=== PATIENT | male | born 1950 | race Caucasian/White ===

== ENCOUNTER → 2018-12-17 14:29 | Outpatient (CLI) | payer OTHER, SELFPAY ==
--- NOTE | 2018-12-17 | DI.RAD.S_ITS ---
PROCEDURE: XR CHEST 2V INDICATIONS: COUGH TECHNIQUE: 2 views of the chest were acquired. COMPARISON: [facility], , CHEST 2 VIEW, 12/26/2017, 15:50. FINDINGS: Surgical changes and devices: None. Lungs and pleura: Low lung volumes with scattered subsegmental atelectasis/scarring. . No pleural effusions or pneumothorax. Mediastinum: Mediastinal contours are normal. Heart size is normal. Bones and chest wall: No suspicious bony abnormalities. Soft tissues appear unremarkable. IMPRESSION: No acute disease. Scattered scarring/atelectasis. Dictated by: Wellington Caro M.D. on 12/17/2018 at 15:22 Approved by: Wellington Caro M.D. on 12/17/2018 at 15:35
== END ==
PROVIDERS: PCP Family Medicine; Visit Provider Family Medicine
DX: R05 Cough (principal); R07.9 Chest pain, unspecified; I10 Essential (primary) hypertension
CPT/HCPCS: 71046

== ENCOUNTER → 2019-09-16 07:41 | Outpatient (CLI) | payer OTHER, SELFPAY ==
--- NOTE | 2019-09-16 | DI.RAD.S_ITS ---
PROCEDURE: XR SINUS MIN 3V INDICATIONS: SINUSITIS TECHNIQUE: 3 views of the sinuses were acquired. COMPARISON: None. FINDINGS: Sinuses: The visualized sinuses demonstrate no air-fluid levels but images do document asymmetric left-sided maxillary sinus mucosal thickening. The visualized mastoids also appear clear. Bones: No suspicious bony lesions. Nasal septum is midline. IMPRESSION: Left maxillary sinusitis, without air-fluid level. Concentric mural thickening of the mucosa is associated. Dictated by: Josh Boyle M.D. on 09/16/2019 at 9:15 Approved by: Josh Boyle M.D. on 09/16/2019 at 9:16
== END ==
PROVIDERS: PCP Family Medicine; Visit Provider Family Medicine
DX: J01.80 Other acute sinusitis (principal); J32.0 Chronic maxillary sinusitis
CPT/HCPCS: 70220

== ENCOUNTER → 2022-10-10 09:28 | Outpatient (CLI) | payer OTHER, SELFPAY ==
[2022-10-10 10:08] LABS: Add Manual Diff / Slide Review NO; Basophils Absolute Auto 0 /uL (0-100); Basophils Percent Auto 0.2 % (0-2); Eosinophils Absolute Auto 100 /uL (0-450); Eosinophils Percent Auto 1.2 % (2-4); Hematocrit 42.7 % (41-53); Hemoglobin 13.7 g/dL (13.5-17.5); Lymphocytes Absolute Auto 600 /uL (1100-4500); Lymphocytes Percent Auto 8.7 % (25-40); Mean Corpuscular HGB Conc 32.1 % (30-36); Mean Corpuscular Hemoglobin 27.4 PG (26-34); Mean Corpuscular Volume 85.2 fL (80-100); Monocytes Absolute Auto 600 /uL (0-900); Neutrophils Absolute Auto 5300 /uL (1500-7000); Neutrophils Percent Auto 80.9 % (50-75); Platelet Count 243 X10^3/uL (150-400); Red Blood Cell Count 5.01 X10^6/uL (4.5-5.9); Red Cell Distribution Width 15.8 % (11.6-14.8); White Blood Cell Count 6.6 X10^3/uL (4.5-11.0)
[2022-10-10 10:18] LABS: Hemoglobin A1C% w Est Avg Glu 7.9 % (4.0-6.0)
[2022-10-10 10:25] LABS: Alanine Aminotransferase 26 IU/L (<50); Albumin 3.9 g/dL (3.5-5.0); Albumin Globulin Ratio 1.1 (1.0-2.8); Alkaline Phosphatase 90 U/L (38-126); Aspartate Aminotransferase 30 IU/L (17-59); Bilirubin Total 1.4 mg/dL (0.2-1.3); Blood Urea Nitrogen 24 mg/dL (9-20); Calcium 8.9 mg/dL (8.4-10.2); Carbon Dioxide 27 mmol/L (22-32); Chloride 95 mmol/L (98-107); Cholesterol 98 mg/dL (140-199); Estimated Glomerular Filt Rate > 60 mL/min (>60); Globulin 3.5 g/dL (1.7-4.1); Glucose 131 mg/dL (80-110); HDL Cholesterol 25 mg/dL (40-60); HEMOLYSIS < 15 (0-50); LDL Cholesterol Calculated 41 mg/dL (<100); Potassium 4.3 mmol/L (3.4-5.1); Sodium 134 mmol/L (137-145); Total Protein 7.4 g/dL (6.3-8.2); Triglycerides 160 mg/dL (35-150)
[2022-10-10 10:39] LABS: Vitamin D 25 Hydroxy (D3) 65.6 ng/mL (30.0-100.0)
[2022-10-10 11:34] LABS: Folate 13.8 ng/mL (2.76-20.0); Vitamin B12 359 pg/mL (239-931)
== END ==
PROVIDERS: PCP Family Medicine; Referring Provider Family Medicine; Visit Provider Family Medicine
DX: I10 Essential (primary) hypertension (principal); E11.9 Type 2 diabetes mellitus without complications; E55.9 Vitamin D deficiency, unspecified; E66.01 Morbid (severe) obesity due to excess calories; G94 Other disorders of brain in diseases classified elsewhere; M12.89 Other specific arthropathies, not elsewhere classified, multiple sites; R42 Dizziness and giddiness
CPT/HCPCS: 36415; 80053; 80061; 82306; 82607; 82746; 83036; 85025

== ENCOUNTER 2023-12-15 16:22 | Inpatient (IN) | payer MEDICARE, OTHER, SELFPAY ==
[2023-12-15] VITALS (15 sets, daily range): BP systolic 128–163; BP diastolic 55–69; PULSE 69–81; RESP 18–28; TEMP 36.1; O2SAT 87–95; BMI 41.0
--- NOTE | 2023-12-15 16:47 | DI.RAD.S_ITS ---
PROCEDURE: XR CHEST 1V INDICATIONS: Shortness of breath TECHNIQUE: One view of the chest was acquired. COMPARISON: [facility], MALIKA, XR CHEST 2V, 12/17/2018, 14:30. [facility], MALIKA, CHEST 2 VIEW, 12/26/2017, 15:50. FINDINGS: Surgical changes and devices: None. Lungs and pleura: Increased pulmonary markings and peribronchial cuffing. Small left pleural effusion. Mediastinum: Mediastinal contours appear normal. Heart size is enlarged. Bones and chest wall: No suspicious bony lesions. Overlying soft tissues appear unremarkable. IMPRESSION: Moderate pulmonary edema with small left pleural effusion. Dictated by: Delvis Martins M.D. on 12/15/2023 at 18:00 Approved by: Delvis Martins M.D. on 12/15/2023 at 18:00
--- NOTE | 2023-12-15 16:58 | ED.SOB ---
HPI - SOB/Dyspnea General Chief Complaint: Shortness of Breath/Dyspnea Stated Complaint: states can't breathe Time Seen by Provider: 12/15/23 16:49 Source: patient and family Mode of arrival: Ambulatory Limitations: no limitations History of Present Illness HPI Narrative: Patient is a 73-year-old male history of congestive heart failure, diabetes chronic respiratory failure on 4 L, presenting today with increasing shortness of breath. Due to his chronic respiratory failure he has a pulse oximetry monitors his oxygen closely. He reports over the last 6-7 days he has had increasing shortness of breath with exertion. His oxygen level has gone up to 6-7 L. He has not noted any significant weight gain. He has no chest pain fever chills or cough. But he reports his O2 went down to 65% while at home nursing report in the ED states his O2 on 4 L went into the 80s. He is currently requiring 6-7 L nasal cannula Related Data Allergies Allergy/AdvReac Type Severity Reaction Status Date / Time No Known Drug Allergies Allergy Verified 12/15/23 17:34 Exam Initial Vital Signs Initial Vital Signs: Vital Signs Respiratory Rate 28 H 12/15/23 16:29 Pulse Oximetry 90 L 12/15/23 16:29 Oxygen Delivery Method Nasal Cannula 12/15/23 16:29 Oxygen Flow Rate 4 12/15/23 16:29 GENERAL: Alert pleasant 73-year-old male appears uncomfortable HEENT: Head atraumatic,EOMI, pupils reactive, face symmetric, [moist] mucous membranes CARDIOVASCULAR: Regular rate and rhythm without murmurs, rubs or gallops. RESPIRATORY: Breath sounds equal bilaterally, no wheezes rales or rhonchi. ABDOMEN: Soft, nontender. Normoactive bowel sounds all 4 quadrants. No guarding or rebound. EXTREMITIES: Normal range of motion, no clubbing or edema. Neurovascularly intact NEUROLOGICAL: Alert and oriented x4.Normal gait and speech. Cranial nerves II through XII grossly intact. SKIN: Warm, dry, no laceration, no petechiae, no rashes or lesions. Course Orders Ordered: ED Orders 12/15/23 16:47 XR chest 1V Stat Measure peak expiratory flow ONCE RT Consult Eval and Treat NOW 12/15/23 16:50 EKG-12 Lead Stat 12/15/23 16:55 Complete Blood Count AUTO DIFF Stat Comprehensive Metabolic Panel Stat Lactate (Lactic Acid) Stat NT-proBNP (BNP-Adult 18+) Stat Prothrombin Time INR Stat Troponin I Stat 12/15/23 17:41 CT angio chest PE protocol Stat Discontinued Medications Furosemide (Furosemide 40 Mg/4 Ml Vial) 40 mg IV NOW ONE Stop: 12/15/23 17:00 Last Admin: 12/15/23 17:12 Dose: 40 mg Documented By: CHRIS Vital Signs Vital signs: Vital Signs - 8 hr 12/15/23 16:29 12/15/23 16:37 12/15/23 16:43 Pulse Rate 75 Respiratory Rate 28 H Blood Pressure 143/66 H Pulse Oximetry 90 L 87 L Oxygen Delivery Method Nasal Cannula Oxygen Flow Rate 4 12/15/23 16:43 12/15/23 17:00 12/15/23 17:00 Pulse Rate 74 72 Respiratory Rate 22 Blood Pressure 146/66 H Pulse Oximetry 94 95 Oxygen Delivery Method Nasal Cannula Oxygen Flow Rate 6 12/15/23 17:30 12/15/23 17:30 12/15/23 18:00 Pulse Rate 72 73 Respiratory Rate 24 28 H Blood Pressure 138/63 Pulse Oximetry 94 89 L Oxygen Delivery Method Oxygen Flow Rate 12/15/23 18:01 12/15/23 18:01 12/15/23 18:30 Pulse Rate 74 69 Respiratory Rate 21 22 Blood Pressure 163/69 H Pulse Oximetry 90 L 92 Oxygen Delivery Method Oxygen Flow Rate 12/15/23 18:31 12/15/23 18:31 Pulse Rate 71 Respiratory Rate 18 Blood Pressure 144/65 H Pulse Oximetry 91 Oxygen Delivery Method Nasal Cannula Oxygen Flow Rate 6 MDM - SOB/Dyspnea Lab Data 12/15/23 16:55 12/15/23 16:55 Labs: Lab Results 12/15/23 Range/Units 16:55 WBC 12.4 H (4.5-11.0) X10^3/uL RBC 4.61 (4.5-5.9) X10^6/uL Hgb 12.9 L (13.5-17.5) g/dL Hct 40.3 L (41-53) % MCV 87.4 (80-100) fL MCH 27.9 (26-34) PG MCHC 32.0 (30-36) % RDW 16.4 H (11.6-14.8) % Plt Count 316 (150-400) X10^3/uL Neut % (Auto) 87.0 H (50-75) % Lymph % (Auto) 5.9 L (25-40) % [place] % (Auto) 6.0 (3-14) % Eos % (Auto) 0.7 L (2-4) % Baso % (Auto) 0.4 (0-2) % Neut # (Auto) 67075 H (9363-3952) /uL Lymph # (Auto) 700 L (2390-7390) /uL [place] # (Auto) 700 (0-900) /uL Eos # (Auto) 100 (0-450) /uL Baso # (Auto) 100 (0-100) /uL PT 14.1 H (9.4-12.5) SECONDS INR 1.2 (0.9-1.3) Sodium 135 L (137-145) mmol/L Potassium 4.6 (3.4-5.1) mmol/L Chloride 100 (98-107) mmol/L Carbon Dioxide 28 (22-32) mmol/L BUN 27 H (9-20) mg/dL Creatinine 1.23 (0.66-1.25) mg/dL Estimated GFR > 60 (>60) mL/min BUN/Creatinine Ratio 22.0 (6-22) Glucose 143 H (80-110) mg/dL Lactate 0.9 (0.7-2.1) mmol/L Calcium 9.1 (8.4-10.2) mg/dL Total Bilirubin 1.3 (0.2-1.3) mg/dL AST 17 (17-59) IU/L ALT 13 (<50) IU/L Alkaline Phosphatase 87 (38-126) U/L Troponin I < 0.012 (0.01-0.034) ng/mL NT-Pro-B Natriuret Pep 2010 H (<125) pg/mL Total Protein 7.2 (6.3-8.2) g/dL Albumin 3.8 (3.5-5.0) g/dL Globulin 3.4 (1.7-4.1) g/dL Albumin/Globulin Ratio 1.1 (1.0-2.8) Imaging Data Chest x-ray: Radiologist's Impression: PROCEDURE: XR CHEST 1V INDICATIONS: Shortness of breath TECHNIQUE: One view of the chest was acquired. COMPARISON: [facility], CR, XR CHEST 2V, 12/17/2018, 14:30. [facility], CR, CHEST 2 VIEW, 12/26/2017, 15:50. FINDINGS: Surgical changes and devices: None. Lungs and pleura: Increased pulmonary markings and peribronchial cuffing. Small left pleural effusion. Mediastinum: Mediastinal contours appear normal. Heart size is enlarged. Bones and chest wall: No suspicious bony lesions. Overlying soft tissues appear unremarkable. IMPRESSION: Moderate pulmonary edema with small left pleural effusion. Dictated by: Delvis Martins M.D. on 12/15/2023 at 18:00 CT scan - chest: Radiologist's Impression: PROCEDURE: CT ANGIO CHEST PE PROTOCOL INDICATIONS: hypoxia TECHNIQUE: After the administration of intravenous contrast, 2 mm thick sections acquired from the pulmonary apices to the posterior costophrenic angles. 3-dimensional maximum intensity projection (MIP) coronal and sagittal reformats were then acquired through the thorax. For radiation dose reduction, the following was used: automated exposure control, adjustment of mA and/or kV according to patient size. COMPARISON: None. FINDINGS: Image quality: Suboptimal due to contrast timing. Pulmonary arteries: Pulmonary arteries are normal in size, and demonstrate no intraluminal filling defects to the proximal segmental level to suggest central pulmonary embolism. Lower Neck: No enlarged lymph nodes. Thyroid: No thyroid nodules which require sonographic follow up, per consensus guidelines. Axillae: No enlarged lymph nodes. Chest Wall: Unremarkable. Bones: Unremarkable. Lungs and Pleura: Small to moderate bilateral pleural effusions. Increased pulmonary markings. Central ground-glass and interstitial thickening. Bronchial thickening present. Heart: Heart size is enlarged1. No pericardial effusion. Annular calcification mitral valve. Three-vessel coronary calcifications, marked for age. Thoracic Vessels: No aortic aneurysm. Mediastinum and [place]: No enlarged lymph nodes. Calcified granuloma. Esophagus: No wall thickening. No hiatal hernia. Upper Abdomen: Calcified splenic granuloma. IMPRESSION: No pulmonary embolus. Moderate to severe pulmonary edema with small pleural effusions. Marked coronary artery calcifications for age. Dictated by: Delvis Martins M.D. on 12/15/2023 at 18:32 ECG Data Attestation: I personally reviewed and interpreted this ECG as follows: Interpretation: Sinus rhythm rate 74 UT interval 172 QRS [address] changes no priors to compare MDM Narrative Medical decision making narrative: Patient is a 73-year-old male who has a history of chronic hypoxic respiratory failure on 4 L of home oxygen history of congestive heart failure presenting today with increasing shortness of breath. He definitely does require more oxygen but he does not appear in any sort of acute respiratory distress. He speaks in full sentences while on 67 L. he has a BMI of 41 what I do not appreciate any significant pitting edema on exam Blood work has been reviewed he is mild leukocytosis of 12.4, sodium 135 potassium 4.6, chloride 100 bicarb 28 BUN 27 creatinine 1.23 troponin undetectable BNP 2009 Chest x-ray shows pulmonary edema with pleural effusion CT angio does not show pulmonary embolism but does show again pulmonary edema pleural effusions Patient appears comfortable with an O2 sat of 90-91%. He is given Lasix 40 IV and has urinated. He definitely is requiring more oxygen than normal. And he has obvious effusions and edema on x-ray and CT he reports that at some point he was admitted and he had almost 40 lb diuresed off of him. Dr. Alberts accepts patient Discharge Plan Departure Patient Disposition: Admitted As Inpatient Clinical Impression: Acute exacerbation of CHF (congestive heart failure) Referrals: Paramjit Hurtado MD [Primary Care Provider] -
[2023-12-15] MEDS: FUROSEMIDE 40 MG/4 ML VIAL IV (17:12)
[2023-12-15 17:14] LABS: Add Manual Diff / Slide Review NO; Basophils Absolute Auto 100 /uL (0-100); Basophils Percent Auto 0.4 % (0-2); Eosinophils Absolute Auto 100 /uL (0-450); Eosinophils Percent Auto 0.7 % (2-4); Hematocrit 40.3 % (41-53); Hemoglobin 12.9 g/dL (13.5-17.5); Lymphocytes Absolute Auto 700 /uL (1100-4500); Lymphocytes Percent Auto 5.9 % (25-40); Mean Corpuscular Hemoglobin 27.9 PG (26-34); Mean Corpuscular Volume 87.4 fL (80-100); Monocytes Absolute Auto 700 /uL (0-900); Neutrophils Absolute Auto 10800 /uL (1500-7000); Platelet Count 316 X10^3/uL (150-400); Red Blood Cell Count 4.61 X10^6/uL (4.5-5.9); Red Cell Distribution Width 16.4 % (11.6-14.8); White Blood Cell Count 12.4 X10^3/uL (4.5-11.0)
[2023-12-15 17:17] LABS: INR 1.2 (0.9-1.3); Prothrombin Time 14.1 SECONDS (9.4-12.5)
[2023-12-15 17:21] LABS: Lactate (Lactic Acid) 0.9 mmol/L (0.7-2.1)
[2023-12-15 17:22] LABS: Alanine Aminotransferase 13 IU/L (<50); Albumin 3.8 g/dL (3.5-5.0); Albumin Globulin Ratio 1.1 (1.0-2.8); Alkaline Phosphatase 87 U/L (38-126); Aspartate Aminotransferase 17 IU/L (17-59); Bilirubin Total 1.3 mg/dL (0.2-1.3); Blood Urea Nitrogen 27 mg/dL (9-20); Calcium 9.1 mg/dL (8.4-10.2); Carbon Dioxide 28 mmol/L (22-32); Chloride 100 mmol/L (98-107); Estimated Glomerular Filt Rate > 60 mL/min (>60); Globulin 3.4 g/dL (1.7-4.1); Glucose 143 mg/dL (80-110); HEMOLYSIS < 15 (0-50); Potassium 4.6 mmol/L (3.4-5.1); Sodium 135 mmol/L (137-145); Total Protein 7.2 g/dL (6.3-8.2)
[2023-12-15 17:33] LABS: NT-proBNP (BNP-Adult 18+) 2010 pg/mL (<125); Troponin I < 0.012 ng/mL (0.01-0.034)
--- NOTE | 2023-12-15 17:41 | DI.CT.S_ITS ---
PROCEDURE: CT ANGIO CHEST PE PROTOCOL INDICATIONS: hypoxia TECHNIQUE: After the administration of intravenous contrast, 2 mm thick sections acquired from the pulmonary apices to the posterior costophrenic angles. 3-dimensional maximum intensity projection (MIP) coronal and sagittal reformats were then acquired through the thorax. For radiation dose reduction, the following was used: automated exposure control, adjustment of mA and/or kV according to patient size. COMPARISON: None. FINDINGS: Image quality: Suboptimal due to contrast timing. Pulmonary arteries: Pulmonary arteries are normal in size, and demonstrate no intraluminal filling defects to the proximal segmental level to suggest central pulmonary embolism. Lower Neck: No enlarged lymph nodes. Thyroid: No thyroid nodules which require sonographic follow up, per consensus guidelines. Axillae: No enlarged lymph nodes. Chest Wall: Unremarkable. Bones: Unremarkable. Lungs and Pleura: Small to moderate bilateral pleural effusions. Increased pulmonary markings. Central ground-glass and interstitial thickening. Bronchial thickening present. Heart: Heart size is enlarged1. No pericardial effusion. Annular calcification mitral valve. Three-vessel coronary calcifications, marked for age. Thoracic Vessels: No aortic aneurysm. Mediastinum and [place]: No enlarged lymph nodes. Calcified granuloma. Esophagus: No wall thickening. No hiatal hernia. Upper Abdomen: Calcified splenic granuloma. IMPRESSION: No pulmonary embolus. Moderate to severe pulmonary edema with small pleural effusions. Marked coronary artery calcifications for age. Dictated by: Delvis Martins M.D. on 12/15/2023 at 18:32 Approved by: Delvis Martins M.D. on 12/15/2023 at 18:34
[2023-12-16] VITALS (12 sets, daily range): BP systolic 114–131; BP diastolic 44–62; PULSE 61–93; RESP 16–24; TEMP 36.1–36.7; O2SAT 87–95
--- NOTE | 2023-12-16 02:40 | PC.NURSE ---
Pt very diaphoretic, checked pt blood sugar and found to be 55. Gave 2 orange juice and peanut butter sandwich. Notified [place] and ordered if sugar doesn't go up with snack then d50. Recheck is 77.
--- NOTE | 2023-12-16 06:31 | RT ---
pt agreed to be placed back on CPAP/6L O2 bleed in, at this time. Tolerating well.
--- NOTE | 2023-12-16 06:55 | P.HP_ITS ---
History of Present Illness History of Present Illness Date Patient Seen: 12/14/23 Time Patient Seen: 23:15 Chief complaint: states can't breathe Narrative: 73 years old male with a past medical history congestive heart failure type unknown, COPD with chronic respiratory failure on 4 L of oxygen at home, diabetes mellitus type 2, obstructive sleep apnea on CPAP and multiple other medical issues was brought to the emergency room with progressive shortness of breath since the past week. He has shortness of breath with minimal exertion. Denies any chest pain palpitation dizziness or loss of consciousness. Denies any cough fever or chills. Apparently his symptoms have progressively worsened and per patient, O2 saturation even dropped into the 65% at home. In the ED, patient was saturating in the mid 80s on 4 L mid 90s at 6 L. Further workup showed a white count of 12.4, BUN of 27 and a creatinine of 1.23. Lactic acid was normal at 0.9. BNP was 2010. Chest x-ray shows moderate pulmonary edema with small left pleural effusion while a CT chest confirms severe pulmonary edema. Patient was initiated on IV Lasix for suspected heart failure exacerbation with oxygen supplementation nebulizers and admitted for further evaluation [facility] Social History household members: none Smoking Status: Former smoker alcohol intake: former Meds Home Medications and Allergies Home Medications Medication Instructions Recorded Confirmed Type amlodipine 10 mg tablet 10 mg PO BID 12/15/23 12/15/23 History aspirin 81 mg PO DAILY 12/15/23 12/15/23 History atorvastatin 40 mg tablet 40 mg PO DAILY 12/15/23 12/15/23 History fluticasone propionate 50 50 spray intranasal DAILY 12/15/23 12/15/23 History mcg/actuation nasal spray,suspension furosemide 40 mg tablet 40 mg PO BID 12/15/23 12/15/23 History hydrochlorothiazide 50 mg tablet 100 mg PO QACDINNER 12/15/23 12/15/23 History losartan 50 mg tablet 50 mg PO BID 12/15/23 12/15/23 History metformin 500 mg tablet 1,000 mg PO QID 12/15/23 12/15/23 History metoprolol succinate 100 mg 100 mg PO DAILY 12/15/23 12/15/23 History tablet,extended release 24 hr spironolactone 25 mg tablet 25 mg PO BID 12/15/23 12/15/23 History tramadol 50 mg tablet 50 mg PO 3XD 12/15/23 12/15/23 History Allergies Allergy/AdvReac Type Severity Reaction Status Date / Time No Known Drug Allergies Allergy Verified 12/15/23 17:34 Review of Systems Review of Systems Narrative: A 12 point review of system was negative unless otherwise stated in history of present illness Exam Vital Signs (past 8 hours): - 12/16/23 00:44 12/16/23 02:30 12/16/23 04:40 Temperature 97.0 F L 97.4 F L Pulse Rate 67 65 Respiratory Rate 24 24 Blood Pressure 114/48 L 122/52 L Pulse Oximetry 87 L 90 L 90 L Oxygen Delivery Method CPAP Oxygen Flow Rate 6 6 6 Fraction of Inspired Oxygen 12/16/23 05:50 12/16/23 06:30 Temperature Pulse Rate 66 Respiratory Rate 20 Blood Pressure Pulse Oximetry 92 Oxygen Delivery Method High Flow Nasal Cannula Humidification CPAP Oxygen Flow Rate 13 6 Fraction of Inspired Oxygen 44 Fraction of Inspired Oxygen 44 SaO2/FiO2 Ratio 209 Oxygen Delivery Method CPAP Oxygen Flow Rate 6 Narrative Exam Narrative: Air entry diminished bilaterally at the base. Crackles heard at the base S1-S2 heard no S3 1-2+ edema bilaterally in the lower extremities Objective Labs 12/15/23 16:55 12/15/23 16:55 Labs: Laboratory Results - last 24 hr 12/15/23 16:55 WBC 12.4 H RBC 4.61 Hgb 12.9 L Hct 40.3 L MCV 87.4 MCH 27.9 MCHC 32.0 RDW 16.4 H Plt Count 316 Neut % (Auto) 87.0 H Lymph % (Auto) 5.9 L [place] % (Auto) 6.0 Eos % (Auto) 0.7 L Baso % (Auto) 0.4 Neut # (Auto) 82003 H Lymph # (Auto) 700 L [place] # (Auto) 700 Eos # (Auto) 100 Baso # (Auto) 100 PT 14.1 H INR 1.2 Sodium 135 L Potassium 4.6 Chloride 100 Carbon Dioxide 28 BUN 27 H Creatinine 1.23 Estimated GFR > 60 BUN/Creatinine Ratio 22.0 Glucose 143 H Lactate 0.9 Calcium 9.1 Total Bilirubin 1.3 AST 17 ALT 13 Alkaline Phosphatase 87 Troponin I < 0.012 NT-Pro-B Natriuret Pep 2010 H Total Protein 7.2 Albumin 3.8 Globulin 3.4 Albumin/Globulin Ratio 1.1 Assessment & Plan Assessment & Plan narrative: 73 years old male with a past medical history congestive heart failure type unknown, COPD with chronic respiratory failure on 4 L of oxygen at home, diabetes mellitus type 2, obstructive sleep apnea on CPAP and multiple other medical issues was brought to the emergency room with progressive shortness of breath since the past week. He has shortness of breath with minimal exertion. Denies any chest pain palpitation dizziness or loss of consciousness. Denies any cough fever or chills. Apparently his symptoms have progressively worsened and per patient, O2 saturation even dropped into the 65% at home. In the ED, patient was saturating in the mid 80s on 4 L mid 90s at 6 L. Further workup showed a white count of 12.4, BUN of 27 and a creatinine of 1.23. Lactic acid was normal at 0.9. BNP was 2010. Chest x-ray shows moderate pulmonary edema with small left pleural effusion while a CT chest confirms severe pulmonary edema. Patient was initiated on IV Lasix for suspected heart failure exacerbation with oxygen supplementation nebulizers and admitted for further evaluation 1. Acute hypoxic respiratory failure likely multifactorial and appears more likely from heart failure component than COPD component at this time. Continue with IV diuresis for now and follow-up with an echocardiogram to check the LV function. In the meantime initiate fluid restriction at 1.5 L per 24 hours, sodium restriction of 2 g per 24 hours. Check daily weights with intake output and continue oxygen supplementation to maintain O2 saturation above 89%. Trend renal function closely. Will follow-up with thyroid panel as well 2. Diabetes mellitus type 2. On metformin at home but will hold metformin and watching the renal function closely when on diuresis. Check the blood sugar ACHS with insulin sliding scale and check an A1c level 3 obstructive sleep apnea may also be complicating the respiratory failure above. Resume the home CPAP for now 4 hypertension. Resume the home metoprolol XL but hold off on amlodipine given the low normal blood pressures and watch the blood pressure closely 5 DVT prophylaxis will be Lovenox 6 dyslipidemia resume home statin Patient will be admitted under inpatient status given the acute hypoxic respiratory failure with oxygen requirements going about the baseline in the setting of significantly elevated BNP and moderate pleural effusion/pulmonary edema needing IV diuresis. Expect length of stay greater than 2 midnights Patient was evaluated with the help of video communication device. The location of the provider was [facility]
--- NOTE | 2023-12-16 06:58 | DI.ECHO.S_ITS ---
[facility] +---------+ : : [address] : : : : [id number] : : : : Phone: [phone]+ Echocardiogram Report + + :Name: HASMUKH CHAIREZ Study Date: 12/17/2023 Height: 70 in : :[facility] ReadingLocation: Weight: 286 lb : : Gender: Male BSA: 2.4 m2 : :: 1950 Age: 73 yrs BP: 125/49 mmHg: :Reason For Study: CONGESTIVE HEART FAILURE : :Ordering Physician: JENNIFER, : :MASOOD Elkins MD Performed By: Albania Ortiz : :Referring: MASOOD RODRIGUEZ MD : + + Interpretation Summary Normal sinus rhythm. Normal LV size and mildly increased wall thickness. Normal wall motion and LV systolic function. Ejection fraction is 65-70% Moderate left atrial enlargement. Moderate mitral annular calcification; anterior mitral leaflet is particularly thickened and calcified. There is moderate associated mitral stenosis. Aortic valve is a trileaflet structure with moderately thickened and calcified leaflets. Left coronary leaflet is particularly abnormal. There is mild aortic stenosis with peak velocity of 2.3 m/s and mean gradient of 13 mmHg. Mildly dilated ascending aorta measuring 3.9 cm. No prior study available for comparison. Procedure: A two-dimensional transthoracic echocardiogram with color flow and Doppler was performed. The study quality was technically difficult. The patient had an echocardiogram, but there is no comparison study available. The patient was in sinus rhythm with heart rates between 64-70 bpm during the exam. Left Ventricle: The left ventricle is normal in size. Left ventricular wall thickness is mildly increased. The ejection fraction is estimated to be 65- 70%. Right Ventricle: The right ventricle is not well visualized. The right ventricular systolic function is normal. Atria: The left atrium is moderately dilated. Right atrial size is normal. There is no Doppler evidence for an interatrial shunt. Mitral Valve: There is moderate mitral annular calcification. The mitral valve leaflets are moderately calcified. The mitral valve mean gradient is 5.1 mmHg. There is trace mitral regurgitation. Aortic Valve: The aortic valve is moderately calcified. The peak aortic velocity is 2.3 m/sec. The aortic valve mean gradient is 13 mmHg. No aortic regurgitation is present. Tricuspid Valve: The tricuspid valve is normal in structure and function. There is trace tricuspid regurgitation. Pulmonary artery pressures cannot be estimated because of the lack of a measurable TR jet velocity. Pulmonic Valve: The pulmonic valve leaflets are thin and pliable; valve motion is normal. There is a trace or physiologic amount of pulmonic regurgitation. Great Vessels: The aortic root is normal size. The dimensions of the ascending aorta are normal. The IVC is dilated (diameter is greater than 2.1 cm) yet it collapses greater than 50% with a sniff. This suggests a right atrial pressure of 8 mm Hg. Pericardium/ Pleura There is no pericardial effusion. There is no pleural effusion. MMode/2D Measurements & Calculations LVIDd: 5.3 cm LVOT diam: 2.1 cm LVIDs: 3.2 cm Ao root diam: 3.6 cm FS: 39.4 % asc Aorta Diam: 3.9 cm IVSd: 1.2 cm LVPWd: 1.1 cm LV moore. diameter/BSA (cm/m^2): 2.2 LV sys. diameter/BSA (cm/m^2): 1.3 LA A2 area: 31.3 cm2 RA long axis: 4.7 cm LA A4 area: 24.9 cm2 RA area: 16.7 cm2 LA length (vol): 6.7 cm RA vol: 50.8 ml LA vol: 98.8 ml RA : 20.9 ml/m2 LA vol index: 40.7 ml/m2 IVC diam: 2.4 cm TAPSE: 2.0 cm Doppler Measurements & Calculations Ao V2 max: 231.7 cm/sec LVOT Max Tevin: 103.0 cm/sec Ao V2 mean: 169.2 cm/sec LV V1 max P.2 mmHg Ao max P.1 mmHg LV V1 VTI: 26.4 cm Ao mean P.9 mmHg CHE(I,D): 1.7 cm2 Ao V2 VTI: 51.7 cm CHE(V,D): 1.5 cm2 sev ratio: 0.51 CHE indexed to BSA (cm^2/m^2): 0.72 MV E max tevin: 159.1 cm/sec PA V2 max: 87.4 cm/sec MV A max tevin: 75.2 cm/sec PA V2 mean: 63.5 cm/sec MV E/A: 2.1 PA mean P.8 mmHg Med Peak E' Tevin: 6.0 cm/sec PA pr(Accel): 17.3 mmHg E/E' med: 26.4 Lat Peak E' Tevin: 7.3 cm/sec E/E' lat: 21.9 E/e' average: 24.1 MV dec time: 0.29 sec MVA(VTI): 1.6 cm2 MV V2 mean: 90.9 cm/sec SV(LVOT): 89.9 ml MV mean P.1 mmHg MV V2 VTI: 56.6 cm Electronically signed by: Kasandra Richmond M.D. on Reading Physician:12/17/2023 12:52 PM
--- NOTE | 2023-12-16 06:59 | RT ---
Noting SpO2 desaturation while on CPAP. Pt placed back on 13L HFNC. Noting improvement in saturation. RN aware.
[2023-12-16 07:11] LABS: Add Manual Diff / Slide Review NO; Basophils Absolute Auto 0 /uL (0-100); Basophils Percent Auto 0.3 % (0-2); Eosinophils Absolute Auto 100 /uL (0-450); Eosinophils Percent Auto 1.2 % (2-4); Hematocrit 40.3 % (41-53); Hemoglobin 12.8 g/dL (13.5-17.5); Lymphocytes Absolute Auto 1100 /uL (1100-4500); Lymphocytes Percent Auto 10.2 % (25-40); Mean Corpuscular HGB Conc 31.8 % (30-36); Mean Corpuscular Hemoglobin 28.4 PG (26-34); Mean Corpuscular Volume 89.3 fL (80-100); Monocytes Absolute Auto 700 /uL (0-900); Monocytes Percent Auto 7.2 % (3-14); Neutrophils Absolute Auto 8400 /uL (1500-7000); Neutrophils Percent Auto 81.1 % (50-75); Platelet Count 311 X10^3/uL (150-400); Red Blood Cell Count 4.52 X10^6/uL (4.5-5.9); Red Cell Distribution Width 16.8 % (11.6-14.8); White Blood Cell Count 10.4 X10^3/uL (4.5-11.0)
[2023-12-16 07:12] LABS: INR 1.3 (0.9-1.3); Prothrombin Time 14.5 SECONDS (9.4-12.5)
[2023-12-16 07:18] LABS: BUN Creatinine Ratio 22.2 (6-22); Blood Urea Nitrogen 28 mg/dL (9-20); Carbon Dioxide 33 mmol/L (22-32); Chloride 98 mmol/L (98-107); Estimated Glomerular Filt Rate > 60 mL/min (>60); Glucose 170 mg/dL (80-110); HEMOLYSIS < 15 (0-50); Potassium 4.6 mmol/L (3.4-5.1); Sodium 139 mmol/L (137-145)
--- NOTE | 2023-12-16 07:20 | PM.HP.1 ---
History of Present Illness History of Present Illness Date Patient Seen: 12/16/23 Time Patient Seen: 09:13 Chief complaint: states can't breathe Narrative: From Night Doctor: 73 years old male with a past medical history congestive heart failure type unknown, COPD with chronic respiratory failure on 4 L of oxygen at home, diabetes mellitus type 2, obstructive sleep apnea on CPAP and multiple other medical issues was brought to the emergency room with progressive shortness of breath since the past week. He has shortness of breath with minimal exertion. Denies any chest pain palpitation dizziness or loss of consciousness. Denies any cough fever or chills. Apparently his symptoms have progressively worsened and per patient, O2 saturation even dropped into the 65% at home. In the ED, patient was saturating in the mid 80s on 4 L mid 90s at 6 L. Further workup showed a white count of 12.4, BUN of 27 and a creatinine of 1.23. Lactic acid was normal at 0.9. BNP was 2010. Chest x-ray shows moderate pulmonary edema with small left pleural effusion while a CT chest confirms severe pulmonary edema. Patient was initiated on IV Lasix for suspected heart failure exacerbation with oxygen supplementation nebulizers and admitted for further evaluation. Additional history: The patient notes a history of heart failure. He had a cardiology evaluation in [place] where he had a negative angiogram per his report. He had no need for cardiac stents. He is unsure of the level of his cardiac function and denies recent Cardiology involvement or echo. He has had some orthopnea for the last several days but no real pedal edema. He believe his weight is stable. He denies any chest pain or palpitations. No real URI symptoms. He denies recent diarrhea, fevers or chills. [facility] Social History household members: none Smoking Status: Former smoker alcohol intake: former Meds Home Medications and Allergies Home Medications Medication Instructions Recorded Confirmed Type amlodipine 10 mg tablet 10 mg PO BID 12/15/23 12/15/23 History aspirin 81 mg PO DAILY 12/15/23 12/15/23 History atorvastatin 40 mg tablet 40 mg PO DAILY 12/15/23 12/15/23 History fluticasone propionate 50 50 spray intranasal DAILY 12/15/23 12/15/23 History mcg/actuation nasal spray,suspension furosemide 40 mg tablet 40 mg PO BID 12/15/23 12/15/23 History hydrochlorothiazide 50 mg tablet 100 mg PO QACDINNER 12/15/23 12/15/23 History losartan 50 mg tablet 50 mg PO BID 12/15/23 12/15/23 History metformin 500 mg tablet 1,000 mg PO QID 12/15/23 12/15/23 History metoprolol succinate 100 mg 100 mg PO DAILY 12/15/23 12/15/23 History tablet,extended release 24 hr spironolactone 25 mg tablet 25 mg PO BID 12/15/23 12/15/23 History tramadol 50 mg tablet 50 mg PO 3XD 12/15/23 12/15/23 History Allergies Allergy/AdvReac Type Severity Reaction Status Date / Time No Known Drug Allergies Allergy Verified 12/15/23 17:34 Review of Systems Review of Systems Narrative: All else reviewed and otherwise unremarkable except as noted in the histpry and physical. Exam Vital Signs (past 8 hours): - 12/16/23 00:44 12/16/23 02:30 12/16/23 04:40 Temperature 97.0 F L 97.4 F L Pulse Rate 67 65 Respiratory Rate 24 24 Blood Pressure 114/48 L 122/52 L Pulse Oximetry 87 L 90 L 90 L Oxygen Delivery Method CPAP Oxygen Flow Rate 6 6 6 Fraction of Inspired Oxygen 12/16/23 05:50 12/16/23 06:30 12/16/23 06:57 Temperature Pulse Rate 66 Respiratory Rate 20 Blood Pressure Pulse Oximetry 92 92 Oxygen Delivery Method High Flow Nasal Cannula Humidification CPAP Oxygen Flow Rate 13 6 11 Fraction of Inspired Oxygen 44 Fraction of Inspired Oxygen 44 SaO2/FiO2 Ratio 209 Oxygen Delivery Method CPAP Oxygen Flow Rate 11 Narrative Exam Narrative: NAD, fluent speech, on 2 L of oxygen. Normocephalic skull, EOMI, anicteric sclera. Neck is supple, midline trachea, normal JVP. Lungs are clear with basilar rales, normal rate and effort. Heart is regular without murmur. Normal rate. Abdomen is distended non tender. Extremities with trace edema. Skin is free of rash or lesions. Joints are not swollen or deformed. He moves arms and legs without difficulty, normal cranial nerves. Normal judgment. Objective ECG Impression: nterpretation: Sinus rhythm rate 74 NH interval 172 QRS [address] changes no priors to compare Imaging Chest x-ray: Radiologist's impression: Moderate pulmonary edema with small left pleural effusion. CT scan - chest: Radiologist's impression: No pulmonary embolus. Moderate to severe pulmonary edema with small pleural effusions. Marked coronary artery calcifications for age. Labs 12/16/23 05:50 12/16/23 05:50 Labs: Laboratory Results - last 24 hr 12/15/23 12/15/23 12/16/23 05:50 16:55 05:50 WBC 12.4 H 10.4 RBC 4.61 4.52 Hgb 12.9 L 12.8 L Hct 40.3 L 40.3 L MCV 87.4 89.3 MCH 27.9 28.4 MCHC 32.0 31.8 RDW 16.4 H 16.8 H Plt Count 316 311 Neut % (Auto) 87.0 H 81.1 H Lymph % (Auto) 5.9 L 10.2 L [place] % (Auto) 6.0 7.2 Eos % (Auto) 0.7 L 1.2 L Baso % (Auto) 0.4 0.3 Neut # (Auto) 00442 H 8400 H Lymph # (Auto) 700 L 1100 [place] # (Auto) 700 700 Eos # (Auto) 100 100 Baso # (Auto) 100 0 PT 14.5 H 14.1 H INR 1.3 1.2 Sodium 135 L 139 Potassium 4.6 4.6 Chloride 100 98 Carbon Dioxide 28 33 H BUN 27 H 28 H Creatinine 1.23 1.26 H Estimated GFR > 60 > 60 BUN/Creatinine Ratio 22.0 22.2 H Glucose 143 H 170 H Lactate 0.9 Calcium 9.1 9.0 Total Bilirubin 1.3 AST 17 ALT 13 Alkaline Phosphatase 87 Troponin I < 0.012 NT-Pro-B Natriuret Pep 2010 H Total Protein 7.2 Albumin 3.8 Globulin 3.4 Albumin/Globulin Ratio 1.1 Assessment & Plan Assessment & Plan narrative: 1. Acute hypoxic respiratory failure from heart failure. Present on admission and active. -Continue with IV diuresis for now and follow-up with an echocardiogram to check the LV function. -In the meantime initiate fluid restriction at 1.5 L per 24 hours, sodium restriction of 2 g per 24 hours. -Check daily weights with intake output and continue oxygen supplementation to maintain O2 saturation above 89%. - Trend renal function closely. Will follow-up with thyroid panel as well 2. Diabetes mellitus type 2. Present on admission and stable. -On metformin at home but will hold metformin and watching the renal function closely when on diuresis. -Check the blood sugar ACHS with insulin sliding scale and check an A1c level 3. Ostructive sleep apnea, present on admission and active. -Resume the home CPAP for now 4. Hypertension. Present on admission and active. - Resume the home metoprolol XL but hold off on amlodipine given the low normal blood pressures and watch the blood pressure closely 5. Dyslipidemia. Present on admission stable. - Resume home statin. DVT prophylaxis will be Lovenox Patient will be admitted under inpatient status given the acute hypoxic respiratory failure with oxygen requirements going about the baseline in the setting of significantly elevated BNP and moderate pleural effusion/pulmonary edema needing IV diuresis. Expect length of stay greater than 2 midnights Time Spent With Patient Time with patient: 30 to 49 minutes with 50% spent counseling/coordinating care Quality MIPS - Admit I confirm the patient?s Advance Care Plan is present, Code status is documented, Surrogate decision maker is in patient?s record [If Yes, STOP here]: Yes MIPS - Meds 'Current medications' to include all prescriptions, [id number] products, herbals, cannabis/cannabidiol products, and vitamin/mineral/dietary (nutritional) supplements. I have utilized all available resources to obtain, update, or review the patient?s current medications. [If Yes, STOP here]: Yes
[2023-12-16 07:25] LABS: NT-proBNP (BNP-Adult 18+) 1450 pg/mL (<125)
[2023-12-16 09:39] LABS: Add Manual Diff / Slide Review NO; Basophils Absolute Auto 100 /uL (0-100); Basophils Percent Auto 0.6 % (0-2); Eosinophils Absolute Auto 100 /uL (0-450); Hematocrit 39.7 % (41-53); Hemoglobin 12.7 g/dL (13.5-17.5); Lymphocytes Absolute Auto 800 /uL (1100-4500); Lymphocytes Percent Auto 9.1 % (25-40); Mean Corpuscular HGB Conc 32.1 % (30-36); Mean Corpuscular Hemoglobin 28.5 PG (26-34); Monocytes Absolute Auto 700 /uL (0-900); Monocytes Percent Auto 7.5 % (3-14); Neutrophils Absolute Auto 7400 /uL (1500-7000); Neutrophils Percent Auto 81.8 % (50-75); Platelet Count 300 X10^3/uL (150-400); Red Blood Cell Count 4.46 X10^6/uL (4.5-5.9); Red Cell Distribution Width 16.3 % (11.6-14.8); White Blood Cell Count 9.1 X10^3/uL (4.5-11.0)
[2023-12-16 09:49] LABS: Alanine Aminotransferase 13 IU/L (<50); Albumin 3.7 g/dL (3.5-5.0); Albumin Globulin Ratio 1.1 (1.0-2.8); Alkaline Phosphatase 79 U/L (38-126); Aspartate Aminotransferase 17 IU/L (17-59); BUN Creatinine Ratio 22.1 (6-22); Bilirubin Total 1.3 mg/dL (0.2-1.3); Blood Urea Nitrogen 29 mg/dL (9-20); Calcium 8.9 mg/dL (8.4-10.2); Carbon Dioxide 34 mmol/L (22-32); Chloride 99 mmol/L (98-107); Estimated Glomerular Filt Rate 57 mL/min (>60); Globulin 3.4 g/dL (1.7-4.1); Glucose 162 mg/dL (80-110); HEMOLYSIS < 15 (0-50); Phosphorous 4.9 mg/dL (2.3-3.7); Potassium 4.9 mmol/L (3.4-5.1); Sodium 138 mmol/L (137-145); Total Protein 7.1 g/dL (6.3-8.2)
[2023-12-16 09:57] LABS: NT-proBNP (BNP-Adult 18+) 1190 pg/mL (<125)
[2023-12-16] MEDS: TRAMADOL 50 MG TABLET PO ×3 (10:05→20:15)
[2023-12-16] MEDS: ASPIRIN EC 81 MG TABLET PO (10:05)
[2023-12-16] MEDS: ATORVASTATIN 20 MG TABLET 40 MG PO (10:05)
[2023-12-16] MEDS: METOPROLOL ER 50 MG TABLET 100 MG PO (10:06)
[2023-12-16] MEDS: ENOXAPARIN 40 MG/0.4 ML SYRINGE SUBCUT ×2 (10:06→20:16)
[2023-12-16] MEDS: ACETAMINOPHEN 325 MG TABLET 650 MG PO ×3 (10:07→21:38)
[2023-12-16 10:19] LABS: TSH w/ Reflex to FT4 2.34 uIU/mL (0.47-4.68)
[2023-12-16] MEDS: FLUTICASONE 120 SPRAY/16 GM SPRAY.SUSP 50 SPRAY NASAL (10:32)
[2023-12-16] MEDS: FUROSEMIDE 40 MG/4 ML VIAL IV (13:11)
--- NOTE | 2023-12-16 13:14 | P.PN_ITS ---
Subjective Subjective Interval history: The patient notes a history of heart failure. He had a cardiology evaluation in [place] where he had a negative angiogram per his report. He had no need for cardiac stents. He is unsure of the level of his cardiac function and denies recent Cardiology involvement or echo. He has had some orthopnea for the last several days but no real pedal edema. He believe his weight is stable. He denies any chest pain or palpitations. No real URI symptoms. Exam Vital Signs (past 8 hours): - 12/16/23 05:50 12/16/23 06:30 12/16/23 06:57 Temperature Pulse Rate 66 Respiratory Rate 20 Blood Pressure Pulse Oximetry 92 92 Oxygen Delivery Method High Flow Nasal Cannula Humidification CPAP Oxygen Flow Rate 13 6 11 Fraction of Inspired Oxygen 44 12/16/23 09:00 12/16/23 10:06 Temperature 97.8 F Pulse Rate 67 93 H Respiratory Rate 16 Blood Pressure 127/52 L 127/52 L Pulse Oximetry 93 Oxygen Delivery Method Oxygen Flow Rate 6 Fraction of Inspired Oxygen Fraction of Inspired Oxygen 44 SaO2/FiO2 Ratio 209 Oxygen Delivery Method CPAP Oxygen Flow Rate 6 Narrative Exam Narrative: NAD, alert and oriented. Fluent speech. Lungs are clear except basilar rales, normal rate and effort. Heart is regular, no murmur gallop or rub. Abdomen is soft, non distended. Extremities are free of edema. Objective Labs 12/16/23 09:23 12/16/23 09:23 Labs: Laboratory Results - last 24 hr 12/15/23 12/15/23 12/16/23 05:50 16:55 05:50 WBC 12.4 H 10.4 RBC 4.61 4.52 Hgb 12.9 L 12.8 L Hct 40.3 L 40.3 L MCV 87.4 89.3 MCH 27.9 28.4 MCHC 32.0 31.8 RDW 16.4 H 16.8 H Plt Count 316 311 Neut % (Auto) 87.0 H 81.1 H Lymph % (Auto) 5.9 L 10.2 L [place] % (Auto) 6.0 7.2 Eos % (Auto) 0.7 L 1.2 L Baso % (Auto) 0.4 0.3 Neut # (Auto) 86345 H 8400 H Lymph # (Auto) 700 L 1100 [place] # (Auto) 700 700 Eos # (Auto) 100 100 Baso # (Auto) 100 0 PT 14.5 H 14.1 H INR 1.3 1.2 Sodium 135 L 139 Potassium 4.6 4.6 Chloride 100 98 Carbon Dioxide 28 33 H BUN 27 H 28 H Creatinine 1.23 1.26 H Estimated GFR > 60 > 60 BUN/Creatinine Ratio 22.0 22.2 H Glucose 143 H 170 H Lactate 0.9 Calcium 9.1 9.0 Phosphorus Magnesium Total Bilirubin 1.3 AST 17 ALT 13 Alkaline Phosphatase 87 Troponin I < 0.012 NT-Pro-B Natriuret Pep 2010 H 1450 H Total Protein 7.2 Albumin 3.8 Globulin 3.4 Albumin/Globulin Ratio 1.1 TSH 12/16/23 09:23 WBC 9.1 RBC 4.46 L Hgb 12.7 L Hct 39.7 L MCV 89.0 MCH 28.5 MCHC 32.1 RDW 16.3 H Plt Count 300 Neut % (Auto) 81.8 H Lymph % (Auto) 9.1 L [place] % (Auto) 7.5 Eos % (Auto) 1.0 L Baso % (Auto) 0.6 Neut # (Auto) 7400 H Lymph # (Auto) 800 L [place] # (Auto) 700 Eos # (Auto) 100 Baso # (Auto) 100 PT INR Sodium 138 Potassium 4.9 Chloride 99 Carbon Dioxide 34 H BUN 29 H Creatinine 1.31 H Estimated GFR 57 L BUN/Creatinine Ratio 22.1 H Glucose 162 H Lactate Calcium 8.9 Phosphorus 4.9 H Magnesium 2.0 Total Bilirubin 1.3 AST 17 ALT 13 Alkaline Phosphatase 79 Troponin I NT-Pro-B Natriuret Pep 1190 H Total Protein 7.1 Albumin 3.7 Globulin 3.4 Albumin/Globulin Ratio 1.1 [facility] 2.34 [facility] Social History household members: none Smoking Status: Former smoker alcohol intake: former Assessment & Plan Assessment & Plan narrative: 1. Acute hypoxic respiratory failure from heart failure. Present on admission and active. -Continue with IV diuresis for now and follow-up with an echocardiogram to check the LV function. -In the meantime initiate fluid restriction at 1.5 L per 24 hours, sodium restriction of 2 g per 24 hours. -Check daily weights with intake output and continue oxygen supplementation to maintain O2 saturation above 89%. - Trend renal function closely. Will follow-up with thyroid panel as well 2. Diabetes mellitus type 2. Present on admission and stable. -On metformin at home but will hold metformin and watching the renal function closely when on diuresis. -Check the blood sugar ACHS with insulin sliding scale and check an A1c level 3. Ostructive sleep apnea, present on admission and active. -Resume the home CPAP for now 4. Hypertension. Present on admission and active. - Resume the home metoprolol XL but hold off on amlodipine given the low normal blood pressures and watch the blood pressure closely 5. Dyslipidemia. Present on admission stable. - Resume home statin. DVT prophylaxis will be Lovenox Time Spent With Patient Time with patient: 30 to 49 minutes with 50% spent counseling/coordinating care
--- NOTE | 2023-12-16 13:46 | CM.DANOTE ---
Initial DCP Assessment Visit Note Reviewed EMR and team rounds for pt's medical status and anticipated d/c needs. Met at bedside to introduce self and role to pt and his [id number], pt was found to be awake, short of breath at rest. Plan will be d/c home once medically stable, his sister or [id number] will transport him once ready. Payor: Veronica Owusu PCP: Dr. Hurtado Pt is a 73 year-old M with a PMH of CHF, type 2 diabetes, chronic respoiratory failure on 4LO2 baseline home oxygen presents to the ED with complaints of worsening shortness of breath over the last week. His O2 needs have increased to 6-7L, and he's still been dyspneic. Chest x-ray in the ED showed pulmonary edema with pleural effusions. He was dx with acute hypoxic respiratory failure from heart failure and admitted to the floor for diuresis, followed by ECHO sometime today, and monitoring of O2 levels. DCP will continue to follow and assist with any final d/c needs/recommendations. Discharge Planning/Care Management CM Discharge Assessment Start: 12/16/23 13:34 Freq: Status: Active Protocol: Document 12/16/23 13:35 DPL (Rec: 12/16/23 13:45 DPL [id number]) Discharge Planning Assessment Assigned Charge Entry KAREN Sheppard Advance Directives? No History Provided By Patient,Medical Record Has Patient been admitted in last 30 No days? Prior Living Arrangements House Household Members none Type of transporation used prior to Drives own vehicle admit Independent with ADL's Yes Is patient alert and oriented? Yes Caregiver for Another No Community Services used prior to Oxygen Therapy admission: Comment Pt is on 4LO2 at baseline home oxegyn. DME Already Rented / Owned Oxygen Comment No mobility devices at this time. Comment Pending PT/OT/RT recommendations. Barriers to Discharge No Discharge Plan Home Community Services Oxygen Therapy Referrals Initiated None needed Additional Comment Will continue to monitor for evolving needs. Whiteboard Updated in Patient Room with Yes name and ext. # of Charge Entry Review Status In Process Please Provide Date Initial DC 12/16/23 Assessment Was Performed
[2023-12-16] MEDS: INSULIN LISPRO 100 UNIT/ML 3ML VIAL SUBCUT (17:31)
[2023-12-17] VITALS (8 sets, daily range): BP systolic 121–158; BP diastolic 43–66; PULSE 60–97; RESP 14–24; TEMP 35.7–36.6; O2SAT 89–97
[2023-12-17] MEDS: FUROSEMIDE 40 MG/4 ML VIAL IV (00:12)
--- NOTE | 2023-12-17 07:11 | PM.PN.1 ---
Subjective Subjective Interval history: The patient presented with acute dyspnea and pulmonary edema. He states a history of heart failure but can not say what his EF was. A echo was pending. The patient has reported a negative coronary angiogram with no need for stents. 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 He has been being diuresed. An echo was ordered on December 16. Troponins are negative. S: He feels a bit better with breathing but still on 8 L of oxygen. He denies chest pain. His weight has been relatively stable over last 4 years between 286 and 292. His best weight has been 286. He does have pitting edema which is likely chronic. Exam Vital Signs (past 8 hours): - 12/16/23 23:14 12/17/23 00:13 12/17/23 04:20 Temperature 97.1 F L 96.2 F L Pulse Rate 64 64 Respiratory Rate 24 24 Blood Pressure 130/56 L 125/49 L Pulse Oximetry 94 89 L 92 Oxygen Delivery Method Oxygen Flow Rate 10 11 13 12/17/23 04:30 Temperature Pulse Rate Respiratory Rate 20 Blood Pressure Pulse Oximetry 92 Oxygen Delivery Method High Flow Nasal Cannula Humidification Oxygen Flow Rate 13 Fraction of Inspired Oxygen 44 SaO2/FiO2 Ratio 209 Oxygen Delivery Method High Flow Nasal Cannula,Humidification Oxygen Flow Rate 13 Narrative Exam Narrative: NAD, alert and oriented. Fluent speech. 8 L O2. Lungs are clear, normal rate and effort. Heart is regular, no murmur gallop or rub. Abdomen is soft, non distended. Extremities are notable for pitting bilateral edema. Objective Imaging CT scan - chest: Radiologist's impression: No pulmonary embolus. Moderate to severe pulmonary edema with small pleural effusions. Marked coronary artery calcifications for age. Labs 12/17/23 08:00 12/17/23 08:00 Labs: Laboratory Results - last 24 hr 12/15/23 12/15/23 12/16/23 05:50 16:55 05:50 WBC 10.4 RBC 4.52 Hgb 12.8 L Hct 40.3 L MCV 89.3 MCH 28.4 MCHC 31.8 RDW 16.8 H Plt Count 311 Neut % (Auto) 81.1 H Lymph % (Auto) 10.2 L [place] % (Auto) 7.2 Eos % (Auto) 1.2 L Baso % (Auto) 0.3 Neut # (Auto) 8400 H Lymph # (Auto) 1100 [place] # (Auto) 700 Eos # (Auto) 100 Baso # (Auto) 0 PT 14.5 H 14.1 H INR 1.3 Sodium 139 Potassium 4.6 Chloride 98 Carbon Dioxide 33 H BUN 28 H Creatinine 1.26 H Estimated GFR > 60 BUN/Creatinine Ratio 22.2 H Glucose 170 H Calcium 9.0 Phosphorus Magnesium Total Bilirubin AST ALT Alkaline Phosphatase NT-Pro-B Natriuret Pep 1450 H Total Protein Albumin Globulin Albumin/Globulin Ratio TSH 12/16/23 09:23 WBC 9.1 RBC 4.46 L Hgb 12.7 L Hct 39.7 L MCV 89.0 MCH 28.5 MCHC 32.1 RDW 16.3 H Plt Count 300 Neut % (Auto) 81.8 H Lymph % (Auto) 9.1 L [place] % (Auto) 7.5 Eos % (Auto) 1.0 L Baso % (Auto) 0.6 Neut # (Auto) 7400 H Lymph # (Auto) 800 L [place] # (Auto) 700 Eos # (Auto) 100 Baso # (Auto) 100 PT INR Sodium 138 Potassium 4.9 Chloride 99 Carbon Dioxide 34 H BUN 29 H Creatinine 1.31 H Estimated GFR 57 L BUN/Creatinine Ratio 22.1 H Glucose 162 H Calcium 8.9 Phosphorus 4.9 H Magnesium 2.0 Total Bilirubin 1.3 AST 17 ALT 13 Alkaline Phosphatase 79 NT-Pro-B Natriuret Pep 1190 H Total Protein 7.1 Albumin 3.7 Globulin 3.4 Albumin/Globulin Ratio 1.1 TSH 2.34 PFSH Social History household members: none Smoking Status: Former smoker alcohol intake: former Assessment & Plan Assessment & Plan narrative: 1. Acute hypoxic respiratory failure from heart failure. Present on admission and active. -Continue with IV diuresis, increase to 60 IV q.12. His creatinine is up slightly as his potassium so we will have to watch this carefully and we will do q.12 are being he is. He is pitting edema. -Continue fluid restriction at 1.5 L per 24 hours, sodium restriction of 2 g per 24 hours. -Check daily weights with intake output and continue oxygen supplementation to maintain O2 saturation above 89%. -Trend renal function closely. TSH is normal. -echo is complete with read pending. This may ultimately prove to be pulmonary hypertension, we will see what the echo shows. 2. Diabetes mellitus type 2. Present on admission and stable. -On metformin at home but will hold metformin and watching the renal function closely when on diuresis. -Check the blood sugar ACHS with insulin sliding scale, A1c 7.9. 3. Obstructive sleep apnea, present on admission and active. -Resume the home CPAP for now. 4. Hypertension. Present on admission and active. - Resume the home metoprolol XL but hold off on amlodipine given the low normal blood pressures and watch the blood pressure closely 5. Dyslipidemia. Present on admission stable. - Resume home statin. 6. MONICA, new and active. -may relate to diuresis, plan is as noted below. 7. Mild hyperkalemia, new and active. -plan as below. Plan: -increase Lasix to 60 IV q.12 and monitor creatinine and potassium with Q.12 BMP. -echo should result to see if this is LV dysfunction versus a possible pulmonary hypertension related to his obstructive sleep apnea. DVT prophylaxis will be Lovenox DSIPO: Home in 2 days, we will need Cardiology outpatient follow up. Time Spent With Patient Time with patient: 30 to 49 minutes with 50% spent counseling/coordinating care
[2023-12-17 08:19] LABS: Add Manual Diff / Slide Review NO; BUN Creatinine Ratio 29.1 (6-22); Basophils Absolute Auto 100 /uL (0-100); Basophils Percent Auto 1.2 % (0-2); Blood Urea Nitrogen 39 mg/dL (9-20); Carbon Dioxide 33 mmol/L (22-32); Chloride 99 mmol/L (98-107); Eosinophils Absolute Auto 200 /uL (0-450); Eosinophils Percent Auto 1.6 % (2-4); Estimated Glomerular Filt Rate 56 mL/min (>60); Glucose 102 mg/dL (80-110); HEMOLYSIS < 15 (0-50); Hematocrit 41.7 % (41-53); Hemoglobin 13.2 g/dL (13.5-17.5); Lymphocytes Absolute Auto 900 /uL (1100-4500); Lymphocytes Percent Auto 9.8 % (25-40); Mean Corpuscular HGB Conc 31.8 % (30-36); Mean Corpuscular Hemoglobin 27.9 PG (26-34); Mean Corpuscular Volume 87.8 fL (80-100); Monocytes Absolute Auto 700 /uL (0-900); Neutrophils Absolute Auto 7700 /uL (1500-7000); Neutrophils Percent Auto 80.4 % (50-75); Platelet Count 286 X10^3/uL (150-400); Potassium 5.3 mmol/L (3.4-5.1); Red Blood Cell Count 4.75 X10^6/uL (4.5-5.9); Red Cell Distribution Width 16.4 % (11.6-14.8); Sodium 138 mmol/L (137-145); White Blood Cell Count 9.6 X10^3/uL (4.5-11.0)
[2023-12-17 08:31] LABS: Troponin I < 0.012 ng/mL (0.01-0.034)
[2023-12-17] MEDS: ATORVASTATIN 20 MG TABLET 40 MG PO (10:07)
[2023-12-17] MEDS: ASPIRIN EC 81 MG TABLET PO (10:07)
[2023-12-17] MEDS: TRAMADOL 50 MG TABLET PO ×3 (10:08→20:05)
[2023-12-17] MEDS: ACETAMINOPHEN 325 MG TABLET 650 MG PO ×3 (10:08→20:58)
[2023-12-17] MEDS: METOPROLOL ER 50 MG TABLET 100 MG PO (10:08)
[2023-12-17] MEDS: FLUTICASONE 120 SPRAY/16 GM SPRAY.SUSP NASAL (10:09)
[2023-12-17] MEDS: ENOXAPARIN 40 MG/0.4 ML SYRINGE SUBCUT ×2 (10:09→20:05)
--- NOTE | 2023-12-17 12:53 | CM.DPC ---
DCP Cont: Discussed patient during team rounds. Indicated, that patient may potentially discharge tomorrow, he will be getting an echo today. Patient most likely will go home, should not have any needs. Notes indicate that patient resides alone, but has a sister that will transport. Patient resides in [place]. P: DCP to continue to follow for any needs. Plan is home when stable, could potentially be tomorrow. Ellie Meeks RN/[employer]
[2023-12-17] MEDS: FUROSEMIDE 40 MG/4 ML VIAL 60 MG IV (15:35)
[2023-12-17] MEDS: INSULIN LISPRO 100 UNIT/ML 3ML VIAL SUBCUT ×2 (16:58→20:56)
[2023-12-17 18:24] LABS: BUN Creatinine Ratio 33.8 (6-22); Blood Urea Nitrogen 44 mg/dL (9-20); Calcium 8.7 mg/dL (8.4-10.2); Carbon Dioxide 36 mmol/L (22-32); Chloride 97 mmol/L (98-107); Estimated Glomerular Filt Rate 58 mL/min (>60); Glucose 200 mg/dL (80-110); HEMOLYSIS < 15 (0-50); Potassium 5.2 mmol/L (3.4-5.1); Sodium 137 mmol/L (137-145)
[2023-12-18] VITALS (10 sets, daily range): BP systolic 125–142; BP diastolic 52–64; PULSE 63–76; RESP 18–22; TEMP 35.9–36.7; O2SAT 89–96
[2023-12-18] MEDS: ACETAMINOPHEN 325 MG TABLET 650 MG PO ×4 (03:34→21:34)
[2023-12-18 06:14] LABS: Hematocrit 39.3 % (41-53); Hemoglobin 12.6 g/dL (13.5-17.5); Mean Corpuscular HGB Conc 32.1 % (30-36); Mean Corpuscular Hemoglobin 28.2 PG (26-34); Mean Corpuscular Volume 87.7 fL (80-100); Platelet Count 283 X10^3/uL (150-400); Red Blood Cell Count 4.48 X10^6/uL (4.5-5.9); Red Cell Distribution Width 16.8 % (11.6-14.8); White Blood Cell Count 9.1 X10^3/uL (4.5-11.0)
[2023-12-18 06:28] LABS: BUN Creatinine Ratio 36.9 (6-22); Blood Urea Nitrogen 41 mg/dL (9-20); Calcium 8.9 mg/dL (8.4-10.2); Carbon Dioxide 37 mmol/L (22-32); Chloride 96 mmol/L (98-107); Estimated Glomerular Filt Rate > 60 mL/min (>60); Glucose 124 mg/dL (80-110); HEMOLYSIS < 15 (0-50); Sodium 137 mmol/L (137-145)
[2023-12-18] MEDS: TRAMADOL 50 MG TABLET PO ×3 (10:06→21:31)
[2023-12-18] MEDS: ASPIRIN EC 81 MG TABLET PO (10:07)
[2023-12-18] MEDS: ENOXAPARIN 40 MG/0.4 ML SYRINGE SUBCUT ×2 (10:07→21:31)
[2023-12-18] MEDS: METOPROLOL ER 50 MG TABLET 100 MG PO (10:07)
[2023-12-18] MEDS: ATORVASTATIN 20 MG TABLET 40 MG PO (10:07)
[2023-12-18] MEDS: FLUTICASONE 120 SPRAY/16 GM SPRAY.SUSP NASAL (10:07)
[2023-12-18] MEDS: FUROSEMIDE 40 MG/4 ML VIAL 60 MG IV ×2 (10:20→16:20)
--- NOTE | 2023-12-18 12:57 | CM.DPC ---
DCP Cont. Reviewed EMR and team rounds for pt's medical status updates. Pt remains on 10LO2 today, plan is to continue to diurese, wean down O2 before he can be medically cleared for d/c. Cont. to monitor for d/c disposition recommendations.
--- NOTE | 2023-12-18 17:02 | PM.PN.1 ---
Subjective Subjective Interval history: Patient remains on high amounts of supplemental oxygen. Uses CPAP at night with some O2 at home. TTE showed EF of 65-70%, with mild and mod MS. He continues to feel short of breath with minimal movement but feels okay at rest today. Exam Vital Signs (past 8 hours): - 12/18/23 10:27 12/18/23 12:00 12/18/23 16:31 Temperature 96.7 F L Pulse Rate 72 Respiratory Rate 18 Blood Pressure 125/52 L Pulse Oximetry 93 95 Oxygen Delivery Method Nasal Cannula Oxygen Flow Rate 10 2 Fraction of Inspired Oxygen 60 SaO2/FiO2 Ratio 155 Oxygen Delivery Method Nasal Cannula Oxygen Flow Rate 2 Narrative Exam Narrative: NAD, alert and oriented. Fluent speech. 8 L O2. Lungs are clear, normal rate and effort. Heart is regular, no murmur gallop or rub. Abdomen is soft, non distended. Extremities are notable for pitting bilateral edema. Objective Labs 12/18/23 05:50 12/18/23 05:50 Labs: Laboratory Results - last 24 hr 12/17/23 12/18/23 18:07 05:50 WBC 9.1 RBC 4.48 L Hgb 12.6 L Hct 39.3 L MCV 87.7 MCH 28.2 MCHC 32.1 RDW 16.8 H Plt Count 283 Sodium 137 137 Potassium 5.2 H 5.0 Chloride 97 L 96 L Carbon Dioxide 36 H 37 H BUN 44 H 41 H Creatinine 1.30 H 1.11 Estimated GFR 58 L > 60 BUN/Creatinine Ratio 33.8 H 36.9 H Glucose 200 H 124 H Calcium 8.7 8.9 PFSH Social History household members: none Smoking Status: Former smoker alcohol intake: former Assessment & Plan Assessment & Plan narrative: 1. Acute hypoxic respiratory failure from acute on chronic diastolic heart failure. Present on admission and active. -Continue with IV diuresis, increased to 60 IV q.12. May need to actually increase further if not further improvement with hypoxia. Since starting furosemide, his renal function has improved. Will add diamox today 250 mg BID. -continue heart healthy diet. -Check daily weights with intake output and continue oxygen supplementation to maintain O2 saturation above 89%. -Trend renal function closely. TSH is normal. -TTE with EF 65-70%, mod MS, mild . No pulmonary HTN. -CTA negative for PE, showed diffuse pulmonary edema. 2. Diabetes mellitus type 2. Present on admission and stable. -On metformin at home but will hold metformin and watching the renal function closely when on diuresis. -Check the blood sugar ACHS with insulin sliding scale, A1c 7.9. 3. Obstructive sleep apnea, present on admission and active. -Resume the home CPAP for now. 4. Hypertension. Present on admission and active. - Resume the home metoprolol XL but hold off on amlodipine given the low normal blood pressures and watch the blood pressure closely 5. Dyslipidemia. Present on admission stable. - Resume home statin. 6. MONICA, new and active. -likely due to volume overload, continue diuresis. 7. Mild hyperkalemia, new and active. -plan as below. 8. Obesity. -The patient is at much higher risk for medical and surgical complications because of their obesity. This increases the difficulty and complexity of medical and surgical interventions and increases the chances of poor outcomes such as morbidity and mortality. Plan: -continue Lasix to 60 IV q.12 and monitor creatinine and potassium. Will add diamox with elevated Bicarb on recent labs DVT prophylaxis will be Lovenox DSIPO: Home in 2 days, we will need Cardiology outpatient follow up. Time Spent With Patient Time with patient: 30 to 49 minutes with 50% spent counseling/coordinating care
--- NOTE | 2023-12-18 18:32 | PC.NURSE ---
when patient was sitting up in chair his O2 was 94% on 2L. now pt is laying down in bed semi-fowlers 89% on 3.5L
[2023-12-18] MEDS: INSULIN LISPRO 100 UNIT/ML 3ML VIAL SUBCUT (21:29)
[2023-12-18] MEDS: acetaZOLAMIDE 250 MG TABLET PO (21:33)
[2023-12-19] VITALS (7 sets, daily range): BP systolic 112–140; BP diastolic 44–74; PULSE 73–83; RESP 18–20; TEMP 35.9–36.6; O2SAT 90–97
[2023-12-19 04:34] LABS: Hematocrit 37.9 % (41-53); Hemoglobin 12.1 g/dL (13.5-17.5); Mean Corpuscular Hemoglobin 27.8 PG (26-34); Mean Corpuscular Volume 86.8 fL (80-100); Platelet Count 265 X10^3/uL (150-400); Red Blood Cell Count 4.36 X10^6/uL (4.5-5.9); Red Cell Distribution Width 15.9 % (11.6-14.8); White Blood Cell Count 7.2 X10^3/uL (4.5-11.0)
[2023-12-19 04:51] LABS: BUN Creatinine Ratio 26.9 (6-22); Blood Urea Nitrogen 35 mg/dL (9-20); Calcium 8.8 mg/dL (8.4-10.2); Carbon Dioxide 38 mmol/L (22-32); Chloride 96 mmol/L (98-107); Estimated Glomerular Filt Rate 58 mL/min (>60); Glucose 146 mg/dL (80-110); HEMOLYSIS < 15 (0-50); Potassium 4.7 mmol/L (3.4-5.1); Sodium 135 mmol/L (137-145)
[2023-12-19] MEDS: ENOXAPARIN 40 MG/0.4 ML SYRINGE SUBCUT (09:01)
[2023-12-19] MEDS: METOPROLOL ER 50 MG TABLET 100 MG PO (09:01)
[2023-12-19] MEDS: ACETAMINOPHEN 325 MG TABLET 650 MG PO ×3 (09:02→20:54)
[2023-12-19] MEDS: ASPIRIN EC 81 MG TABLET PO (09:03)
[2023-12-19] MEDS: ATORVASTATIN 20 MG TABLET 40 MG PO (09:03)
[2023-12-19] MEDS: FUROSEMIDE 40 MG/4 ML VIAL 60 MG IV ×2 (09:03→15:14)
[2023-12-19] MEDS: TRAMADOL 50 MG TABLET PO ×3 (09:03→20:54)
[2023-12-19] MEDS: FLUTICASONE 120 SPRAY/16 GM SPRAY.SUSP NASAL (09:04)
[2023-12-19] MEDS: INSULIN LISPRO 100 UNIT/ML 3ML VIAL SUBCUT ×4 (09:05→20:53)
--- NOTE | 2023-12-19 14:21 | CM.DPC ---
DCP Cont. Reviewed EMR and team rounds for status updates. Plan is to continue diuresing, wean down O2-pt remains on 2-3LO2 today, may likely be ready for d/c tomorrow depending on O2 sats in the morning. Cont. to monitor for final d/c recommendations.
--- NOTE | 2023-12-19 14:59 | PM.PN.1 ---
Subjective Subjective Interval history: Patient remains on 3-4 L of O2 today, waxes and wanes. Uses CPAP at night with some O2 at home. TTE showed EF of 65-70%, with mild and mod MS. He continues to feel short of breath with minimal movement but feels okay at rest today. He continues diuresis today. Could not tolerate CPAP overnight per bedside nurse. Exam Vital Signs (past 8 hours): - 12/19/23 08:00 12/19/23 08:09 12/19/23 09:01 Temperature 96.6 F L Pulse Rate 83 77 Respiratory Rate 20 Blood Pressure 136/74 136/74 Pulse Oximetry 97 95 Oxygen Delivery Method High Flow Nasal Cannula Oxygen Flow Rate 10 10 12/19/23 09:18 12/19/23 12:00 Temperature 97.1 F L Pulse Rate 77 Respiratory Rate 20 Blood Pressure 112/48 L Pulse Oximetry 92 Oxygen Delivery Method Nasal Cannula Oxygen Flow Rate 10 Fraction of Inspired Oxygen 60 SaO2/FiO2 Ratio 155 Oxygen Delivery Method Nasal Cannula Oxygen Flow Rate 10 Narrative Exam Narrative: NAD, alert and oriented. Fluent speech. 8 L O2. Lungs are clear, normal rate and effort. Heart is regular, no murmur gallop or rub. Abdomen is soft, non distended. Extremities are notable for pitting bilateral edema. Objective Labs 12/19/23 03:47 12/19/23 03:47 Labs: Laboratory Results - last 24 hr 12/19/23 03:47 WBC 7.2 RBC 4.36 L Hgb 12.1 L Hct 37.9 L MCV 86.8 MCH 27.8 MCHC 32.0 RDW 15.9 H Plt Count 265 Sodium 135 L Potassium 4.7 Chloride 96 L Carbon Dioxide 38 H BUN 35 H Creatinine 1.30 H Estimated GFR 58 L BUN/Creatinine Ratio 26.9 H Glucose 146 H Calcium 8.8 PFSH Social History household members: none Smoking Status: Former smoker alcohol intake: former Assessment & Plan Assessment & Plan narrative: 1. Acute hypoxic respiratory failure from acute on chronic diastolic heart failure. Present on admission and active. -Continue with IV diuresis, increased to 60 IV q.12. Added diamox yesterday 250 mg BID. Cr up a slight amount to 1.3. May be nearing point of needing to reduce diuresis again. -continue heart healthy diet. -Check daily weights with intake output and continue oxygen supplementation to maintain O2 saturation above 89%. -Trend renal function closely. TSH is normal. -TTE with EF 65-70%, mod MS, mild . No pulmonary HTN. -CTA negative for PE, showed diffuse pulmonary edema. 2. Diabetes mellitus type 2. Present on admission and stable. -On metformin at home but will hold metformin and watching the renal function closely when on diuresis. -Check the blood sugar ACHS with insulin sliding scale, A1c 7.9. 3. Obstructive sleep apnea, present on admission and active. -Resume the home CPAP for now. 4. Hypertension. Present on admission and active. - Resume the home metoprolol XL but hold off on amlodipine given the low normal blood pressures and watch the blood pressure closely 5. Dyslipidemia. Present on admission stable. - Resume home statin. 6. MONICA, new and active. -likely due to volume overload, continue diuresis. 7. Mild hyperkalemia, new and active. -plan as below. 8. Obesity. -The patient is at much higher risk for medical and surgical complications because of their obesity. This increases the difficulty and complexity of medical and surgical interventions and increases the chances of poor outcomes such as morbidity and mortality. Plan: -continue Lasix to 60 IV q.12 and diamox today for continued diuresis and monitor creatinine and potassium. DVT prophylaxis will be Lovenox DSIPO: Home in 2 days or so, suspect he will need home O2 for his heart failure. he will need Cardiology outpatient follow up. Time Spent With Patient Time with patient: 30 to 49 minutes with 50% spent counseling/coordinating care
[2023-12-19] MEDS: acetaZOLAMIDE 250 MG TABLET PO (20:54)
[2023-12-20] VITALS (10 sets, daily range): BP systolic 107–133; BP diastolic 36–63; PULSE 63–77; RESP 16–22; TEMP 35.7–36.6; O2SAT 90–94
[2023-12-20 04:30] LABS: Hematocrit 40.6 % (41-53); Hemoglobin 13.2 g/dL (13.5-17.5); Mean Corpuscular HGB Conc 32.5 % (30-36); Mean Corpuscular Volume 86.1 fL (80-100); Platelet Count 252 X10^3/uL (150-400); Red Blood Cell Count 4.72 X10^6/uL (4.5-5.9); Red Cell Distribution Width 16.1 % (11.6-14.8); White Blood Cell Count 6.6 X10^3/uL (4.5-11.0)
[2023-12-20 04:55] LABS: BUN Creatinine Ratio 27.5 (6-22); Blood Urea Nitrogen 36 mg/dL (9-20); Calcium 9.2 mg/dL (8.4-10.2); Carbon Dioxide 36 mmol/L (22-32); Chloride 94 mmol/L (98-107); Estimated Glomerular Filt Rate 57 mL/min (>60); Glucose 225 mg/dL (80-110); HEMOLYSIS < 15 (0-50); Potassium 4.7 mmol/L (3.4-5.1); Sodium 134 mmol/L (137-145)
--- NOTE | 2023-12-20 07:32 | DI.RAD.S_ITS ---
PROCEDURE: XR CHEST 1V INDICATIONS: assess level of pulm edema TECHNIQUE: One view of the chest was acquired. COMPARISON: [facility], CR, XR CHEST 1V, 12/15/2023, 17:39. FINDINGS: Surgical changes and devices: None. Lungs and pleura: Compared to prior radiograph on 12/15/2023, low lung volumes persist with mildly decreased pulmonary edema. Small bilateral pleural effusions. No pneumothorax. Mediastinum: Mediastinal contours appear normal. Heart size is normal. Bones and chest wall: No suspicious bony lesions. Overlying soft tissues appear unremarkable. IMPRESSION: Low lung volumes persist with slightly decreased pulmonary edema. Small bilateral pleural effusions. Approved by: Vidya Thakkar M.D. on 12/20/2023 at 8:31
[2023-12-20] MEDS: INSULIN LISPRO 100 UNIT/ML 3ML VIAL SUBCUT ×4 (08:39→21:03)
[2023-12-20] MEDS: FLUTICASONE 120 SPRAY/16 GM SPRAY.SUSP NASAL (08:39)
[2023-12-20] MEDS: ATORVASTATIN 20 MG TABLET 40 MG PO (08:41)
[2023-12-20] MEDS: METOPROLOL ER 50 MG TABLET 100 MG PO (08:41)
[2023-12-20] MEDS: ASPIRIN EC 81 MG TABLET PO (08:42)
[2023-12-20] MEDS: FUROSEMIDE 40 MG/4 ML VIAL 60 MG IV ×2 (08:42→15:42)
[2023-12-20] MEDS: TRAMADOL 50 MG TABLET PO ×3 (08:42→21:02)
[2023-12-20] MEDS: acetaZOLAMIDE 250 MG TABLET PO ×2 (08:43→21:02)
[2023-12-20] MEDS: ENOXAPARIN 40 MG/0.4 ML SYRINGE SUBCUT (08:44)
[2023-12-20] MEDS: ACETAMINOPHEN 325 MG TABLET 650 MG PO ×3 (08:46→21:02)
--- NOTE | 2023-12-20 15:42 | PM.PN.1 ---
Subjective Subjective Interval history: Patient down to 2L NC. He feels his breathing is better but not all the way yet. He'd like one more day of diuresis. Exam Vital Signs (past 8 hours): - 12/20/23 08:00 12/20/23 08:20 12/20/23 08:41 Temperature 97.6 F Pulse Rate 71 77 Respiratory Rate 20 Blood Pressure 124/63 124/63 Pulse Oximetry 91 Oxygen Delivery Method Nasal Cannula Oxygen Flow Rate 6 12/20/23 10:20 12/20/23 12:00 Temperature Pulse Rate 67 Respiratory Rate 22 Blood Pressure 114/36 L Pulse Oximetry 93 91 Oxygen Delivery Method Nasal Cannula Oxygen Flow Rate 2 2.5 Fraction of Inspired Oxygen 60 SaO2/FiO2 Ratio 155 Oxygen Delivery Method Nasal Cannula Oxygen Flow Rate 2.5 Narrative Exam Narrative: NAD, alert and oriented. Fluent speech. 2L O2. Lungs are clear, normal rate and effort. Heart is regular, no murmur gallop or rub. Abdomen is soft, non distended. Extremities are notable for pitting bilateral edema. Objective Labs 12/20/23 03:52 12/20/23 03:52 Labs: Laboratory Results - last 24 hr 12/20/23 03:52 WBC 6.6 RBC 4.72 Hgb 13.2 L Hct 40.6 L MCV 86.1 MCH 28.0 MCHC 32.5 RDW 16.1 H Plt Count 252 Sodium 134 L Potassium 4.7 Chloride 94 L Carbon Dioxide 36 H BUN 36 H Creatinine 1.31 H Estimated GFR 57 L BUN/Creatinine Ratio 27.5 H Glucose 225 H Calcium 9.2 PFSH Social History household members: none Smoking Status: Former smoker alcohol intake: former Assessment & Plan Assessment & Plan narrative: 1. Acute on chronic hypoxic respiratory failure from acute on chronic diastolic heart failure. Present on admission and active. -patient on home O2 just at night, now requiring all the time -Continue with IV diuresis, increased to 60 IV q.12. Added diamox yesterday 250 mg BID. Cr up a slight amount to 1.3. May be nearing point of needing to reduce diuresis again. -continue heart healthy diet. -Check daily weights with intake output and continue oxygen supplementation to maintain O2 saturation above 89%. -Trend renal function closely. TSH is normal. -TTE with EF 65-70%, mod MS, mild . No pulmonary HTN. -CTA negative for PE, showed diffuse pulmonary edema. -CXR on 12/20 showed improved pulm edema but not resolved 2. Diabetes mellitus type 2. Present on admission and stable. -On metformin at home but will hold metformin and watching the renal function closely when on diuresis. -Check the blood sugar ACHS with insulin sliding scale, A1c 7.9. 3. Obstructive sleep apnea, present on admission and active. -Resume the home CPAP for now. 4. Hypertension. Present on admission and active. - Resume the home metoprolol XL but hold off on amlodipine given the low normal blood pressures and watch the blood pressure closely 5. Dyslipidemia. Present on admission stable. - Resume home statin. 6. MONICA, new and active. -likely due to volume overload, continue diuresis. 7. Mild hyperkalemia, new and active. -plan as below. 8. Obesity. -The patient is at much higher risk for medical and surgical complications because of their obesity. This increases the difficulty and complexity of medical and surgical interventions and increases the chances of poor outcomes such as morbidity and mortality. Plan: -continue Lasix to 60 IV q.12 and diamox today for continued diuresis and monitor creatinine and potassium. DVT prophylaxis will be Lovenox DSIPO: Home in 1 day, then will resume home O2. he will need Cardiology outpatient follow up. Time Spent With Patient Time with patient: 30 to 49 minutes with 50% spent counseling/coordinating care
[2023-12-21] VITALS (7 sets, daily range): BP systolic 132–139; BP diastolic 59–63; PULSE 62–74; RESP 18–20; TEMP 35.5–35.8; O2SAT 93–94
[2023-12-21] MEDS: ENOXAPARIN 40 MG/0.4 ML SYRINGE SUBCUT (08:18)
[2023-12-21] MEDS: INSULIN LISPRO 100 UNIT/ML 3ML VIAL SUBCUT ×2 (08:18→12:14)
[2023-12-21] MEDS: FLUTICASONE 120 SPRAY/16 GM SPRAY.SUSP NASAL (08:19)
[2023-12-21] MEDS: METOPROLOL ER 50 MG TABLET 100 MG PO (08:19)
[2023-12-21] MEDS: FUROSEMIDE 40 MG/4 ML VIAL 60 MG IV (08:20)
[2023-12-21] MEDS: TRAMADOL 50 MG TABLET PO (08:20)
[2023-12-21] MEDS: acetaZOLAMIDE 250 MG TABLET PO (08:21)
[2023-12-21] MEDS: ASPIRIN EC 81 MG TABLET PO (08:21)
[2023-12-21] MEDS: ATORVASTATIN 20 MG TABLET 40 MG PO (08:21)
[2023-12-21 08:37] LABS: Add Manual Diff / Slide Review NO; Basophils Absolute Auto 100 /uL (0-100); Basophils Percent Auto 0.8 % (0-2); Eosinophils Absolute Auto 200 /uL (0-450); Hematocrit 43.8 % (41-53); Hemoglobin 14.1 g/dL (13.5-17.5); Lymphocytes Absolute Auto 1100 /uL (1100-4500); Lymphocytes Percent Auto 14.6 % (25-40); Mean Corpuscular HGB Conc 32.2 % (30-36); Mean Corpuscular Hemoglobin 27.7 PG (26-34); Mean Corpuscular Volume 86.1 fL (80-100); Monocytes Absolute Auto 600 /uL (0-900); Monocytes Percent Auto 8.3 % (3-14); Neutrophils Absolute Auto 5800 /uL (1500-7000); Neutrophils Percent Auto 74.3 % (50-75); Platelet Count 325 X10^3/uL (150-400); Red Blood Cell Count 5.09 X10^6/uL (4.5-5.9); Red Cell Distribution Width 16.2 % (11.6-14.8); White Blood Cell Count 7.9 X10^3/uL (4.5-11.0)
[2023-12-21 08:50] LABS: BUN Creatinine Ratio 27.6 (6-22); Blood Urea Nitrogen 35 mg/dL (9-20); Calcium 9.7 mg/dL (8.4-10.2); Carbon Dioxide 32 mmol/L (22-32); Chloride 95 mmol/L (98-107); Estimated Glomerular Filt Rate 60 mL/min (>60); Glucose 254 mg/dL (80-110); HEMOLYSIS < 15 (0-50); Potassium 5.1 mmol/L (3.4-5.1); Sodium 133 mmol/L (137-145)
[2023-12-21] MEDS: ACETAMINOPHEN 325 MG TABLET 650 MG PO (10:23)
--- NOTE | 2023-12-21 11:07 | P.DS_ITS ---
History of Present Illness History of Present Illness Chief complaint: states can't breathe Narrative: 73 years old male with a past medical history congestive heart failure type unknown, COPD with chronic respiratory failure on 4 L of oxygen at home, diabetes mellitus type 2, obstructive sleep apnea on CPAP and multiple other medical issues was brought to the emergency room with progressive shortness of breath since the past week. He has shortness of breath with minimal exertion. Denies any chest pain palpitation dizziness or loss of consciousness. Denies any cough fever or chills. Apparently his symptoms have progressively worsened and per patient, O2 saturation even dropped into the 65% at home. In the ED, patient was saturating in the mid 80s on 4 L mid 90s at 6 L. Further workup showed a white count of 12.4, BUN of 27 and a creatinine of 1.23. Lactic acid was normal at 0.9. BNP was 2010. Chest x-ray shows moderate pulmonary edema with small left pleural effusion while a CT chest confirms severe pulmonary edema. Patient was initiated on IV Lasix for suspected heart failure exacerbation with oxygen supplementation nebulizers and admitted for further evaluation. Additional history: The patient notes a history of heart failure. He had a cardiology evaluation in [place] where he had a negative angiogram per his report. He had no need for cardiac stents. He is unsure of the level of his cardiac function and denies recent Cardiology involvement or echo. He has had some orthopnea for the last several days but no real pedal edema. He believe his weight is stable. He denies any chest pain or palpitations. No real URI symptoms. He denies recent diarrhea, fevers or chills. Discharge Providers Provider Date of admission: 12/15/23 19:40 Discharge Date: 12/21/23 Primary care physician: Paramjit Hurtado MD Discharge provider: Luis E Mari DO Summary Hospital Course Discharge Diagnosis: 1. Acute on chronic hypoxic respiratory failure from acute on chronic diastolic heart failure. Present on admission and active. -patient on home O2 just at night, now requiring all the time -Continue with IV diuresis, increased to 60 IV q.12. Added diamox yesterday 250 mg BID. Cr up a slight amount to 1.3. May be nearing point of needing to reduce diuresis again. -continue heart healthy diet. -Check daily weights with intake output and continue oxygen supplementation to maintain O2 saturation above 89%. -Trend renal function closely. TSH is normal. -TTE with EF 65-70%, mod MS, mild . No pulmonary HTN. -CTA negative for PE, showed diffuse pulmonary edema. -CXR on 12/20 showed improved pulm edema but not resolved -discharged home on 2L NC with order for home portable O2 concentrator thru [facility] [place] 2. Diabetes mellitus type 2. Present on admission and stable. -On metformin at home but will hold metformin and watching the renal function closely when on diuresis. -Check the blood sugar ACHS with insulin sliding scale, A1c 7.9. 3. Obstructive sleep apnea, present on admission and active. -Resume the home CPAP for now. 4. Hypertension. Present on admission and active. - Resume the home metoprolol XL but hold off on amlodipine given the low normal blood pressures and watch the blood pressure closely 5. Dyslipidemia. Present on admission stable. - Resume home statin. 6. MONICA, new and active. -likely due to volume overload, continue diuresis. 7. Mild hyperkalemia, new and active. -plan as below. 8. Obesity. -The patient is at much higher risk for medical and surgical complications because of their obesity. This increases the difficulty and complexity of medical and surgical interventions and increases the chances of poor outcomes such as morbidity and mortality. Hospital Course: Admitted for acute hypoxia and SOB. Found to be volume overloaded with pulm edema so given IV lasix and diamox. Echo was reassuring with 65-70% EF. He diuresed well and breathing improved, but unable to wean off O2. He has home O2 already but only at night, so he was instructed to wear O2 during the day at 2L. Placed back on po lasix 40 BID and recommended cardiology referral by PCP for ongoing management of diastolic CHF. Exam Vital Signs (past 8 hours): - 12/21/23 04:19 12/21/23 08:00 12/21/23 08:19 Temperature 96.0 F L 96.4 F L Pulse Rate 62 71 71 Respiratory Rate 18 20 Blood Pressure 139/63 138/63 138/63 Pulse Oximetry 94 94 Oxygen Delivery Method Oxygen Flow Rate 2.5 2.5 12/21/23 08:20 12/21/23 10:23 Temperature Pulse Rate 74 Respiratory Rate Blood Pressure Pulse Oximetry 94 Oxygen Delivery Method Nasal Cannula Oxygen Flow Rate 3 Fraction of Inspired Oxygen 32 SaO2/FiO2 Ratio 290 Oxygen Delivery Method Nasal Cannula Oxygen Flow Rate 3 Narrative Exam Narrative: NAD, alert and oriented. Fluent speech. 2L O2. Lungs are clear, normal rate and effort. Heart is regular, no murmur gallop or rub. Abdomen is soft, non distended. Extremities are notable for pitting bilateral edema. Objective Labs 12/21/23 08:30 12/21/23 08:30 Labs: Laboratory Results - last 24 hr 12/21/23 08:30 WBC 7.9 RBC 5.09 Hgb 14.1 Hct 43.8 MCV 86.1 MCH 27.7 MCHC 32.2 RDW 16.2 H Plt Count 325 Neut % (Auto) 74.3 Lymph % (Auto) 14.6 L [place] % (Auto) 8.3 Eos % (Auto) 2.0 Baso % (Auto) 0.8 Neut # (Auto) 5800 Lymph # (Auto) 1100 [place] # (Auto) 600 Eos # (Auto) 200 Baso # (Auto) 100 Sodium 133 L Potassium 5.1 Chloride 95 L Carbon Dioxide 32 BUN 35 H Creatinine 1.27 H Estimated GFR 60 BUN/Creatinine Ratio 27.6 H Glucose 254 H Calcium 9.7 PFSH Social History household members: none Smoking Status: Former smoker alcohol intake: former Discharge Plan Discharge Plan Patient Disposition: Home Provider Discharge Comment: Please get a referral from your PCP to see a assistant to the director. Discharge orders & Medications Prescriptions: Continued amlodipine 10 mg tablet 10 mg PO BID atorvastatin 40 mg tablet 40 mg PO DAILY furosemide 40 mg tablet 40 mg PO BID fluticasone propionate 50 mcg/actuation spray,suspension 50 spray intranasal DAILY losartan 50 mg tablet 50 mg PO BID metformin 500 mg tablet 1,000 mg PO QID hydrochlorothiazide 50 mg tablet 100 mg PO QACDINNER metoprolol succinate 100 mg tablet extended release 24 hr 100 mg PO DAILY tramadol 50 mg tablet 50 mg PO 3XD spironolactone 25 mg tablet 25 mg PO BID aspirin 81 mg 81 mg PO DAILY Follow up/Referrals: Paramjit Hurtado MD [Primary Care Provider] - 2 Weeks Visit Report/Discharge Packet Stand Alone Forms: Patient Portal/API, Stroke Signs & Symptoms Discharge Data Primary Care Provider: Paramjit Hurtado
--- NOTE | 2023-12-21 11:52 | CM.DPC ---
DCP Cont. Reviewed EMR and team rounds for status. Pt has continued to improve, plan is for him to d/c home today with family continuing his care needs. Family will transport. No further DCP needs identified at this time.
== END 2023-12-21 13:10 | disposition home or self-care (01) | DRG 291 ==
LOC: ED 19:40 → AC 19:41
PROVIDERS: Hospitalist; Student in an Organized Health Care Education/Training Program; Admitting Provider Internal Medicine; Emergency Provider Emergency Medicine; PCP Family Medicine; Referring Provider Emergency Medicine; Visit Provider Internal Medicine
DX: I11.0 Hypertensive heart disease with heart failure (principal); I50.33 Acute on chronic diastolic (congestive) heart failure; J96.21 Acute and chronic respiratory failure with hypoxia; J44.9 Chronic obstructive pulmonary disease, unspecified; E11.9 Type 2 diabetes mellitus without complications; G47.33 Obstructive sleep apnea (adult) (pediatric); E78.5 Hyperlipidemia, unspecified; E87.5 Hyperkalemia; E66.9 Obesity, unspecified; Z68.39 Body mass index [BMI] 39.0-39.9, adult; Z87.891 Personal history of nicotine dependence; Z99.81 Dependence on supplemental oxygen; Z79.84 Long term (current) use of oral hypoglycemic drugs
CPT/HCPCS: 36415; 71045; 71275; 80048; 80053; 82962; 83605; 83735; 83880; 84100; 84443; 84484; 85025; 85027; 85610; 93005; 94618; 94660; 94760; 94762; 96374; 99285; C8929; J1650; J1815; J1940; Q9957

== ENCOUNTER → 2024-01-29 11:35 | Outpatient (CLI) | payer MEDICARE, OTHER, SELFPAY ==
[2023-12-15 20:34] VITALS: BMI 41.0
--- NOTE | 2024-01-29 11:42 | DI.RAD.S_ITS ---
PROCEDURE: XR CHEST 2V INDICATIONS: HEART FAILURE TECHNIQUE: 2 views of the chest were acquired. COMPARISON: [facility], CT, CT ANGIO CHEST PE PROTOCOL, 12/15/2023, 17:55. [facility], CR, XR CHEST 1V, 12/20/2023, 7:34. FINDINGS: Surgical changes and devices: None. Lungs and pleura: Prominent pulmonary markings. No significant pleural effusion. No pneumothorax. Mediastinum: Mediastinal contours are unchanged. Heart size is prominent. Bones and chest wall: No suspicious bony abnormalities. Soft tissues appear unremarkable. IMPRESSION: Pulmonary vasculature engorgement. Dictated by: Macario Kohler M.D. on 01/29/2024 at 15:38 Approved by: Macario Kohler M.D. on 01/29/2024 at 15:44
== END ==
PROVIDERS: PCP Family Medicine; Referring Provider Family Medicine; Visit Provider Family Medicine
DX: I50.9 Heart failure, unspecified (principal)
CPT/HCPCS: 71046

== ENCOUNTER 2024-06-28 10:41 | Emergency (ER) | payer MEDICARE, OTHER, SELFPAY ==
[2023-12-15 20:34] VITALS: BMI 41.0
[2024-06-28] VITALS (45 sets, daily range): BP systolic 97–141; BP diastolic 49–65; PULSE 66–94; RESP 14–36; TEMP 36.3–37.2; O2SAT 90–100; BMI 39.7
--- NOTE | 2024-06-28 11:03 | DI.RAD.S_ITS ---
PROCEDURE: XR CHEST 1V INDICATIONS: suspected sepsis TECHNIQUE: One view of the chest was acquired. COMPARISON: [facility], CR, XR CHEST 2V, 01/29/2024, 11:41. FINDINGS: Surgical changes and devices: None. Lungs and pleura: Lungs are clear. No pleural effusions or pneumothorax. Mediastinum: Mediastinal contours appear normal. Heart size is enlarged. Bones and chest wall: No suspicious bony lesions. Overlying soft tissues appear unremarkable. IMPRESSION: No acute pulmonary process. Dictated by: Kathia Pineda M.D. on 06/28/2024 at 12:08 Approved by: Kathia Pineda M.D. on 06/28/2024 at 12:08
--- NOTE | 2024-06-28 11:04 | DI.RAD.S_ITS ---
PROCEDURE: XR TOE RT MIN 2V INDICATIONS: infection/ swelling/remote trauma TECHNIQUE: 3 views of the 1st toe(s) acquired. COMPARISON: None. FINDINGS: Bones: 1st distal tuft fracture with minimal displacement. Arthritic changes are present. Soft tissues: No suspicious soft tissue densities. Mild soft tissue edema most prominent at the 1st digit. IMPRESSION: 1st distal tuft fracture. Dictated by: Kathia Pineda M.D. on 06/28/2024 at 12:09 Approved by: Kathia Pineda M.D. on 06/28/2024 at 12:09
--- NOTE | 2024-06-28 11:14 | EKG_ITS ---
[place] [address] [place] [id number] Test Date: 2024-06-28 Pat Name: Humble Ospina Department: Located Within [facility] Room: Gender: Male Stock Selector: TIFFANIE : 1950 Requested By: Order Number: [id number] Reading MD: Roberto Fry MD Measurements Intervals [place] Rate: 91 P: 56 NM: 182 QRS: -18 QRSD: 92 T: 42 QT: 360 QTc: 442 Interpretive Statements Sinus rhythm with premature supraventricular complexes Electronically Signed On 06-28-2024 12:55:20 PDT by Roberto Fry MD
[2024-06-28 11:23] LABS: Add Manual Diff / Slide Review NO; Basophils Absolute Auto 0 /uL (0-100); Basophils Percent Auto 0.2 % (0-2); Eosinophils Absolute Auto 0 /uL (0-450); Eosinophils Percent Auto 0.1 % (2-4); Hemoglobin 12.3 g/dL (13.5-17.5); Lymphocytes Absolute Auto 700 /uL (1100-4500); Lymphocytes Percent Auto 4.6 % (25-40); Mean Corpuscular HGB Conc 33.2 % (30-36); Mean Corpuscular Hemoglobin 29.3 PG (26-34); Mean Corpuscular Volume 88.3 fL (80-100); Monocytes Absolute Auto 1400 /uL (0-900); Monocytes Percent Auto 9.2 % (3-14); Neutrophils Absolute Auto 13000 /uL (1500-7000); Neutrophils Percent Auto 85.9 % (50-75); Platelet Count 220 X10^3/uL (150-400); Red Blood Cell Count 4.19 X10^6/uL (4.5-5.9); White Blood Cell Count 15.2 X10^3/uL (4.5-11.0)
[2024-06-28 11:30] LABS: INR 1.3 (0.9-1.3); Prothrombin Time 14.5 SECONDS (9.4-12.5)
[2024-06-28 11:33] LABS: PTT Partial Thromboplastin Tim 34 SECONDS (25.1-36.5)
[2024-06-28 11:34] LABS: Alanine Aminotransferase 24 IU/L (<50); Albumin 3.9 g/dL (3.5-5.0); Albumin Globulin Ratio 1.3 (1.0-2.8); Alkaline Phosphatase 74 U/L (38-126); Aspartate Aminotransferase 31 IU/L (17-59); BUN Creatinine Ratio 25.3 (6-22); Bilirubin Total 1.8 mg/dL (0.2-1.3); Blood Urea Nitrogen 50 mg/dL (9-20); Calcium 8.5 mg/dL (8.4-10.2); Carbon Dioxide 22 mmol/L (22-32); Chloride 95 mmol/L (98-107); Estimated Glomerular Filt Rate 35 mL/min (>60); Glucose 191 mg/dL (80-110); HEMOLYSIS < 15 (0-50); Lactate (Lactic Acid) 3.1 mmol/L (0.7-2.1); Lipase 240 U/L (23-300); Potassium 4.7 mmol/L (3.4-5.1); Sodium 129 mmol/L (137-145); Total Protein 6.9 g/dL (6.3-8.2)
[2024-06-28] MEDS: SODIUM CHLORIDE 0.9% 1,000 ML 1000 ML IV (11:34)
[2024-06-28 11:38] LABS: Creatine Kinase 248 U/L (55-170)
[2024-06-28 11:44] LABS: Erythrocyte Sedimentation Rate 70 MM/HR (0-15)
[2024-06-28 11:46] LABS: NT-proBNP (BNP-Adult 18+) 845 pg/mL (<125); Troponin I 0.025 ng/mL (0.01-0.034)
[2024-06-28 11:51] LABS: Procalcitonin 2.28 ng/mL (<0.5)
[2024-06-28 11:54] LABS: C-Reactive Protein Quant 13.9 mg/dL (<1.0)
[2024-06-28] MEDS: CLINDAMYCIN 900 MG/50 ML PIGGYBACK 50 MG IV (11:55)
[2024-06-28] MEDS: SODIUM CHLORIDE 0.9% 1,000 ML 125 ML IV ×2 (11:55→23:11)
--- NOTE | 2024-06-28 12:05 | ED.SKABFB ---
HPI - Skin/Abscess/Foreign Bdy <Laz Koehler MD - Last Filed: 06/29/24 08:20> General Chief complaint: Skin/Abscess/Foreign Body Stated complaint: abscess r big toe/swelling, pt is diabetic Time Seen by Provider: 06/28/24 11:38 Source: patient Mode of arrival: Wheelchair Limitations: no limitations History of Present Illness HPI narrative: 74yo male with hsitory of diabetes, right great toe plantar ulcer for two months, redness pain swelling right great toe and nearby foot area since yesterday, might have bumped right great toe two weeks ago. No fevers but generalized weakness. No current oral antibiotics. No redness proximal foot ankle foreleg knee thigh. No groin pain or swelling nodes. Related Data Home Medications Medication Instructions Recorded Confirmed amlodipine 10 mg tablet 10 mg PO BID 12/15/23 06/28/24 atorvastatin 40 mg tablet 40 mg PO DAILY 12/15/23 06/28/24 fluticasone propionate 50 50 spray intranasal DAILY 12/15/23 06/28/24 mcg/actuation nasal spray,suspension furosemide 40 mg tablet 40 mg PO BID 12/15/23 06/28/24 hydrochlorothiazide 50 mg tablet 100 mg PO QAM 12/15/23 06/28/24 losartan 50 mg tablet 50 mg PO BEDTIME 12/15/23 06/28/24 metformin 500 mg tablet 1,000 mg PO QID 12/15/23 06/28/24 metoprolol succinate 100 mg 100 mg PO QAM 12/15/23 06/28/24 tablet,extended release 24 hr spironolactone 25 mg tablet 25 mg PO BID 12/15/23 06/28/24 tramadol 50 mg tablet 50 mg PO 3XD PRN Pain (Scale Score 12/15/23 06/28/24 7-10) aspirin 81 mg tablet 81 mg PO DAILY 06/28/24 06/28/24 insulin glargine U-300 conc 300 See Rx Instructions .Route .COMPLEX 06/28/24 06/28/24 unit/mL (1.5 mL) subcutaneous pen (Toujeo SoloStar U-300 Insulin) Allergies Allergy/AdvReac Type Severity Reaction Status Date / Time Penicillins Allergy Unknown Verified 06/28/24 11:03 Review of Systems <Laz Koehler MD - Last Filed: 06/29/24 08:20> Review of Systems Narrative: see HPI Patient History <Laz Koehler MD - Last Filed: 06/29/24 08:20> Medical History (Updated 06/28/24 @ 19:14 by Laz Koehler MD) CHF (congestive heart failure) Hypertension Diabetes Social History household members: none Smoking Status: Never smoker alcohol intake: former Smoking Status: Never smoker alcohol intake frequency: 0-2 drinks per day Substance Use Type: does not use Exam <Laz Koehler MD - Last Filed: 06/29/24 08:20> Narrative Exam Narrative: GENERAL: Well-developed patient, in mild distress. HEAD: Atraumatic. Normocephalic. EYES: Pupils equal round and reactive. Extraocular motions intact. No scleral icterus. No injection or drainage. ENT: Nose without bleeding, purulent drainage. Throat without erythema, tonsillar hypertrophy or exudate. Airway patent. NECK: Trachea midline. Non tender CARDIOVASCULAR: Regular rate and rhythm without murmurs, gallops, or rubs. RESPIRATORY: Clear to auscultation. Breath sounds equal bilaterally. No wheezes, rales, or rhonchi. GASTROINTESTINAL: Abdomen soft, non-tender, nondistended. EXTREMITIES: Swelling and redness right great toe, plantar chronic appearing ulcer present, no drainable expressible fluid. Redness extends to the rest of the toe, past IP, dorsal foot, medial aspect foot. Small shallow ulceration periungual, no expressible fluid from the nailbed. BACK: Nontender without deformity or crepitance. No flank tenderness. NEURO: AOx3. Nonfocal gross motor exam SKIN: No rash or erythema of visible areas Initial Vital Signs Initial Vital Signs: Vital Signs Temperature 97.4 F L 06/28/24 10:56 Pulse Rate 91 H 06/28/24 10:56 Respiratory Rate 14 06/28/24 10:56 Blood Pressure 99/52 L 06/28/24 10:56 Pulse Oximetry 94 06/28/24 10:56 Oxygen Delivery Method Room Air 06/28/24 10:56 <Azucena Monique DO - Last Filed: 06/29/24 07:06> Initial Vital Signs Initial Vital Signs: Vital Signs Temperature 97.4 F L 06/28/24 10:56 Pulse Rate 91 H 06/28/24 10:56 Respiratory Rate 14 06/28/24 10:56 Blood Pressure 99/52 L 06/28/24 10:56 Pulse Oximetry 94 06/28/24 10:56 Oxygen Delivery Method Room Air 06/28/24 10:56 Course <Laz Koehler MD - Last Filed: 06/29/24 08:20> Orders Ordered: Discontinued Medications Acetaminophen (Acetaminophen 325 Mg Tablet) 650 mg PO Q6H TABATHA Acetaminophen (Acetaminophen 325 Mg Tablet) 650 mg PO Q6H TABATHA Last Admin: 06/29/24 02:23 Dose: Not Given Documented By: AB Enoxaparin Sodium (Enoxaparin 40 Mg/0.4 Ml Syringe) 40 mg SUBCUT DAILY TABATHA Sodium Chloride (Normal Saline 0.9%) 1,000 mls @ 1,000 mls/hr IV BOLUS ONE Stop: 06/28/24 12:02 Last Infusion: 06/28/24 12:41 Dose: Infused Documented By: Admin: 06/28/24 11:34 Dose: 1,000 mls/hr Documented By: MOSHE Clindamycin Phosphate (Cleocin) 900 mg in 50 mls @ 50 mls/hr IV NOW ONE Stop: 06/28/24 12:39 Last Infusion: 06/28/24 12:57 Dose: Infused Documented By: Admin: 06/28/24 11:55 Dose: 50 mls/hr Documented By: TETE Ciprofloxacin (Cipro) 400 mg in 200 mls @ 200 mls/hr IV NOW ONE Stop: 06/28/24 12:38 Last Admin: 06/28/24 13:09 Dose: Not Given Documented By: JOSIAS Sodium Chloride (Normal Saline 0.9%) 1,000 mls @ 125 mls/hr IV BOLUS ONE Stop: 06/28/24 19:40 Last Infusion: 06/28/24 23:17 Dose: Infused Documented By: Infusion: 06/28/24 18:25 Dose: 125 mls/hr Documented By: Infusion: 06/28/24 17:46 Dose: 0 mls/hr Documented By: Admin: 06/28/24 11:55 Dose: 125 mls/hr Documented By: TETE Ciprofloxacin (Cipro) 400 mg in 200 mls @ 200 mls/hr IV NOW ONE Stop: 06/28/24 14:29 Last Infusion: 06/28/24 14:30 Dose: Infused Documented By: Admin: 06/28/24 13:09 Dose: 200 mls/hr Documented By: JOSIAS Vancomycin HCl 2,000 mg/ (Sodium Chloride) 500 mls @ 250 mls/hr IV NOW ONE Stop: 06/28/24 15:59 Last Admin: 06/28/24 16:31 Dose: Not Given Documented By: TETE Vancomycin HCl/Dextrose (Vancomycin) 2,000 mg in 400 mls @ 200 mls/hr IV NOW ONE Stop: 06/28/24 18:29 Last Infusion: 06/28/24 19:55 Dose: Infused Documented By: Infusion: 06/28/24 18:26 Dose: 200 mls/hr Documented By: Infusion: 06/28/24 17:47 Dose: 0 mls/hr Documented By: Admin: 06/28/24 16:31 Dose: 200 mls/hr Documented By: TETE Cefepime HCl 2 gm/ Sodium (Chloride) 100 mls @ 200 mls/hr IV NOW ONE Stop: 06/28/24 22:49 Last Infusion: 06/28/24 23:50 Dose: Infused Documented By: Admin: 06/28/24 23:07 Dose: 200 mls/hr Documented By: LEANDRA Metronidazole (Flagyl) 500 mg in 100 mls @ 100 mls/hr IV NOW ONE Stop: 06/28/24 23:47 Last Infusion: 06/29/24 00:50 Dose: Infused Documented By: Admin: 06/28/24 23:46 Dose: 100 mls/hr Documented By: LEANDRA Sodium Chloride (Normal Saline 0.9%) 1,000 mls @ 125 mls/hr IV CONT TABATHA Last Infusion: 06/29/24 07:27 Dose: Infused Documented By: Admin: 06/28/24 23:11 Dose: 125 mls/hr Documented By: LEANDRA Metronidazole (Flagyl) 500 mg in 100 mls @ 100 mls/hr IV Q8H TABATHA Last Admin: 06/29/24 02:24 Dose: Not Given Documented By: Cefepime HCl 2 gm/ Sodium (Chloride) 100 mls @ 200 mls/hr IV Q12H TABATHA Metronidazole (Flagyl) 500 mg in 100 mls @ 100 mls/hr IV Q8H [facility] Vancomycin HCl/Dextrose (Vancomycin) 2,000 mg in 400 mls @ 200 mls/hr IV Q24H [facility] Naloxone HCl (Naloxone 0.4 Mg/Ml Vial) 0.2 mg IV Q2MIN PRN PRN Reason: Opiate Reversal Ondansetron HCl (Ondansetron 4 Mg/2 Ml Inj) 4 mg IV NOW PRN PRN Reason: Nausea And Vomiting Ondansetron HCl (Ondansetron 4 Mg Odt) 4 mg SL NOW PRN PRN Reason: Nausea And Vomiting Vancomycin HCl (Vancomycin Per Pharmacy) 1 request MISC NOW [facility] Vital Signs Vital signs: Vital Signs - 8 hr 06/29/24 00:30 06/29/24 01:00 06/29/24 01:10 Temperature Pulse Rate 78 76 79 Respiratory Rate 21 20 21 Blood Pressure 90/50 L Pulse Oximetry 94 95 94 Oxygen Delivery Method Nasal Cannula Oxygen Flow Rate 4 06/29/24 01:11 06/29/24 01:11 06/29/24 01:30 Temperature Pulse Rate 79 75 Respiratory Rate 20 18 Blood Pressure 93/52 L Pulse Oximetry 94 93 Oxygen Delivery Method Oxygen Flow Rate 06/29/24 02:00 06/29/24 02:30 06/29/24 02:39 Temperature Pulse Rate 75 92 H 80 Respiratory Rate 21 29 H 25 H Blood Pressure Pulse Oximetry 91 92 Oxygen Delivery Method Nasal Cannula Nasal Cannula Oxygen Flow Rate 4 4 06/29/24 02:40 06/29/24 03:00 06/29/24 03:30 Temperature Pulse Rate 80 78 Respiratory Rate 22 20 Blood Pressure Pulse Oximetry 93 94 Oxygen Delivery Method Nasal Cannula Oxygen Flow Rate 06/29/24 04:00 06/29/24 04:30 06/29/24 05:00 Temperature Pulse Rate 90 81 79 Respiratory Rate 37 H 21 20 Blood Pressure Pulse Oximetry 92 90 L 95 Oxygen Delivery Method Oxygen Flow Rate 06/29/24 05:00 06/29/24 05:30 06/29/24 06:00 Temperature 98.3 F Pulse Rate 79 78 Respiratory Rate 20 19 Blood Pressure 116/69 Pulse Oximetry 96 94 Oxygen Delivery Method Oxygen Flow Rate 06/29/24 06:30 Temperature Pulse Rate 80 Respiratory Rate 20 Blood Pressure Pulse Oximetry 93 Oxygen Delivery Method Oxygen Flow Rate <Azucena Monique, DO - Last Filed: 06/29/24 07:06> Orders Ordered: Discontinued Medications Acetaminophen (Acetaminophen 325 Mg Tablet) 650 mg PO Q6H TABATHA Acetaminophen (Acetaminophen 325 Mg Tablet) 650 mg PO Q6H TABATHA Last Admin: 06/29/24 02:23 Dose: Not Given Documented By: AB Enoxaparin Sodium (Enoxaparin 40 Mg/0.4 Ml Syringe) 40 mg SUBCUT DAILY TABATHA Sodium Chloride (Normal Saline 0.9%) 1,000 mls @ 1,000 mls/hr IV BOLUS ONE Stop: 06/28/24 12:02 Last Infusion: 06/28/24 12:41 Dose: Infused Documented By: Admin: 06/28/24 11:34 Dose: 1,000 mls/hr Documented By: MOSHE Clindamycin Phosphate (Cleocin) 900 mg in 50 mls @ 50 mls/hr IV NOW ONE Stop: 06/28/24 12:39 Last Infusion: 06/28/24 12:57 Dose: Infused Documented By: Admin: 06/28/24 11:55 Dose: 50 mls/hr Documented By: TETE Ciprofloxacin (Cipro) 400 mg in 200 mls @ 200 mls/hr IV NOW ONE Stop: 06/28/24 12:38 Last Admin: 06/28/24 13:09 Dose: Not Given Documented By: JOSIAS Sodium Chloride (Normal Saline 0.9%) 1,000 mls @ 125 mls/hr IV BOLUS ONE Stop: 06/28/24 19:40 Last Infusion: 06/28/24 23:17 Dose: Infused Documented By: Infusion: 06/28/24 18:25 Dose: 125 mls/hr Documented By: Infusion: 06/28/24 17:46 Dose: 0 mls/hr Documented By: Admin: 06/28/24 11:55 Dose: 125 mls/hr Documented By: TETE Ciprofloxacin (Cipro) 400 mg in 200 mls @ 200 mls/hr IV NOW ONE Stop: 06/28/24 14:29 Last Infusion: 06/28/24 14:30 Dose: Infused Documented By: Admin: 06/28/24 13:09 Dose: 200 mls/hr Documented By: JOSIAS Vancomycin HCl 2,000 mg/ (Sodium Chloride) 500 mls @ 250 mls/hr IV NOW ONE Stop: 06/28/24 15:59 Last Admin: 06/28/24 16:31 Dose: Not Given Documented By: TETE Vancomycin HCl/Dextrose (Vancomycin) 2,000 mg in 400 mls @ 200 mls/hr IV NOW ONE Stop: 06/28/24 18:29 Last Infusion: 06/28/24 19:55 Dose: Infused Documented By: Infusion: 06/28/24 18:26 Dose: 200 mls/hr Documented By: Infusion: 06/28/24 17:47 Dose: 0 mls/hr Documented By: Admin: 06/28/24 16:31 Dose: 200 mls/hr Documented By: TETE Cefepime HCl 2 gm/ Sodium (Chloride) 100 mls @ 200 mls/hr IV NOW ONE Stop: 06/28/24 22:49 Last Infusion: 06/28/24 23:50 Dose: Infused Documented By: Admin: 06/28/24 23:07 Dose: 200 mls/hr Documented By: LEANDRA Metronidazole (Flagyl) 500 mg in 100 mls @ 100 mls/hr IV NOW ONE Stop: 06/28/24 23:47 Last Infusion: 06/29/24 00:50 Dose: Infused Documented By: Admin: 06/28/24 23:46 Dose: 100 mls/hr Documented By: LEANDRA Sodium Chloride (Normal Saline 0.9%) 1,000 mls @ 125 mls/hr IV CONT [facility] Last Infusion: 06/29/24 07:27 Dose: Infused Documented By: Admin: 06/28/24 23:11 Dose: 125 mls/hr Documented By: LEANDRA Metronidazole (Flagyl) 500 mg in 100 mls @ 100 mls/hr IV Q8H [facility] Last Admin: 06/29/24 02:24 Dose: Not Given Documented By: AB Cefepime HCl 2 gm/ Sodium (Chloride) 100 mls @ 200 mls/hr IV Q12H [facility] Metronidazole (Flagyl) 500 mg in 100 mls @ 100 mls/hr IV Q8H [facility] Vancomycin HCl/Dextrose (Vancomycin) 2,000 mg in 400 mls @ 200 mls/hr IV Q24H [facility]AT[facility] Naloxone HCl (Naloxone 0.4 Mg/Ml Vial) 0.2 mg IV Q2MIN PRN PRN Reason: Opiate Reversal Ondansetron HCl (Ondansetron 4 Mg/2 Ml Inj) 4 mg IV NOW PRN PRN Reason: Nausea And Vomiting Ondansetron HCl (Ondansetron 4 Mg Odt) 4 mg SL NOW PRN PRN Reason: Nausea And Vomiting Vancomycin HCl (Vancomycin Per Pharmacy) 1 request MISC NOW [facility] Vital Signs Vital signs: Vital Signs - 8 hr 06/29/24 00:30 06/29/24 01:00 06/29/24 01:10 Temperature Pulse Rate 78 76 79 Respiratory Rate 21 20 21 Blood Pressure 90/50 L Pulse Oximetry 94 95 94 Oxygen Delivery Method Nasal Cannula Oxygen Flow Rate 4 06/29/24 01:11 06/29/24 01:11 06/29/24 01:30 Temperature Pulse Rate 79 75 Respiratory Rate 20 18 Blood Pressure 93/52 L Pulse Oximetry 94 93 Oxygen Delivery Method Oxygen Flow Rate 06/29/24 02:00 06/29/24 02:30 06/29/24 02:39 Temperature Pulse Rate 75 92 H 80 Respiratory Rate 21 29 H 25 H Blood Pressure Pulse Oximetry 91 92 Oxygen Delivery Method Nasal Cannula Nasal Cannula Oxygen Flow Rate 4 4 06/29/24 02:40 06/29/24 03:00 06/29/24 03:30 Temperature Pulse Rate 80 78 Respiratory Rate 22 20 Blood Pressure Pulse Oximetry 93 94 Oxygen Delivery Method Nasal Cannula Oxygen Flow Rate 06/29/24 04:00 06/29/24 04:30 06/29/24 05:00 Temperature Pulse Rate 90 81 79 Respiratory Rate 37 H 21 20 Blood Pressure Pulse Oximetry 92 90 L 95 Oxygen Delivery Method Oxygen Flow Rate 06/29/24 05:00 06/29/24 05:30 06/29/24 06:00 Temperature 98.3 F Pulse Rate 79 78 Respiratory Rate 20 19 Blood Pressure 116/69 Pulse Oximetry 96 94 Oxygen Delivery Method Oxygen Flow Rate 06/29/24 06:30 Temperature Pulse Rate 80 Respiratory Rate 20 Blood Pressure Pulse Oximetry 93 Oxygen Delivery Method Oxygen Flow Rate MDM - Skin/Abscess/Foreign Bdy <Laz Koehler MD - Last Filed: 06/29/24 08:20> Lab Data Attestation: I reviewed the patient's lab results. 06/28/24 11:10 06/28/24 11:10 Labs: Lab Results 06/28/24 06/28/24 06/28/24 Range/Units 11:10 12:18 13:30 WBC 15.2 H (4.5-11.0) X10^3/uL RBC 4.19 L (4.5-5.9) X10^6/uL Hgb 12.3 L (13.5-17.5) g/dL Hct 37.0 L (41-53) % MCV 88.3 (80-100) fL MCH 29.3 (26-34) PG MCHC 33.2 (30-36) % RDW 15.0 H (11.6-14.8) % Plt Count 220 (150-400) X10^3/uL Neut % (Auto) 85.9 H (50-75) % Lymph % (Auto) 4.6 L (25-40) % [place] % (Auto) 9.2 (3-14) % Eos % (Auto) 0.1 L (2-4) % Baso % (Auto) 0.2 (0-2) % Neut # (Auto) 85702 H (0194-1935) /uL Lymph # (Auto) 700 L (5575-5367) /uL [place] # (Auto) 1400 H (0-900) /uL Eos # (Auto) 0 (0-450) /uL Baso # (Auto) 0 (0-100) /uL ESR 70 H (0-15) MM/HR PT 14.5 H (9.4-12.5) SECONDS INR 1.3 (0.9-1.3) APTT 34 (25.1-36.5) SECONDS Sodium 129 L (137-145) mmol/L Potassium 4.7 (3.4-5.1) mmol/L Chloride 95 L (98-107) mmol/L Carbon Dioxide 22 (22-32) mmol/L BUN 50 H (9-20) mg/dL Creatinine 1.98 H (0.66-1.25) mg/dL Estimated GFR 35 L (>60) mL/min BUN/Creatinine Ratio 25.3 H (6-22) Glucose 191 H (80-110) mg/dL Lactate 3.1 H 1.6 (0.7-2.1) mmol/L Calcium 8.5 (8.4-10.2) mg/dL Total Bilirubin 1.8 H (0.2-1.3) mg/dL AST 31 (17-59) IU/L ALT 24 (<50) IU/L Alkaline Phosphatase 74 (38-126) U/L Total Creatine Kinase 248 H (55-170) U/L Troponin I 0.025 (0.01-0.034) ng/mL C-Reactive Protein 13.9 H (<1.0) mg/dL NT-Pro-B Natriuret Pep 845 H (<125) pg/mL Total Protein 6.9 (6.3-8.2) g/dL Albumin 3.9 (3.5-5.0) g/dL Globulin 3.0 (1.7-4.1) g/dL Albumin/Globulin Ratio 1.3 (1.0-2.8) Lipase 240 (23-300) U/L Procalcitonin 2.28 H (<0.5) ng/mL Urine Color Yellow Urine Appearance Clear Urine pH 5.0 (4.5-8.0) Ur Specific [place] 1.020 (1.000-1.035) Urine Protein Negative (Negative) Urine Glucose (UA) Negative (Negative) g/dL Urine Ketones Negative (NEGATIVE) Urine Occult Blood Negative (Negative) Urine Nitrate Negative (Negative) Urine Bilirubin Negative (NEGATIVE) Urine Urobilinogen 1.0 (0.2) E.U./dL Ur Leukocyte Esterase Negative (NEGATIVE) Urine RBC None seen (0-5/HPF) Urine WBC None seen (0-5/HPF) Ur Squamous Epith Cells 1-5 /hpf (0-5/HPF) Urine Bacteria None seen (None) Hyaline Casts 1-5/lpf (None) Ur Culture Indicated? Cult not indicated Vol Urine Centrifuged 10ml (spun) Point of Care Testing Glucose POC 105 Urine Dip Bedside Urine Glucose Negative Bedside Urine Bilirubin - Negative Bedside Urine Ketone - Negative Urine Specific [place] 1.025 Bedside Urine Occult Blood - Negative Bedside Urine pH 5.5 Bedside Urine Protein - Negative Bedside Urine Urobilinogen - Negative Bedside Urine Nitrite - Negative Bedside Urine Leukocytes - Negative Esterase Imaging Data Extremity x-ray #1: Radiologist's Impression: [address] [address] XRay Report Signed Patient: Humble Ospina MR#: [id number] : 1950 Acct:[id number] Age/Sex: 74 / M Date of Service: 06/28/24 Loc: ED Accession Number: [id number] Procedure: XR toe RT min 2V Ordering Provider: Laz Koehler MD PROCEDURE: XR TOE RT MIN 2V INDICATIONS: infection/ swelling/remote trauma TECHNIQUE: 3 views of the 1st toe(s) acquired. COMPARISON: None. FINDINGS: Bones: 1st distal tuft fracture with minimal displacement. Arthritic changes are present. Soft tissues: No suspicious soft tissue densities. Mild soft tissue edema most prominent at the 1st digit. IMPRESSION: 1st distal tuft fracture. Dictated by: Kathia Pineda M.D. on 06/28/2024 at 12:09 Approved by: Kathia Pineda M.D. on 06/28/2024 at 12:09 ECG Data Attestation: I personally reviewed and interpreted this ECG as follows: Interpretation: Normal sinus rhythm with rate of 91, no obvious ST segment elevation or depression changes. Normal axis, normal intervals. PA 182, QRS 92, QTC 442. MDM Narrative Medical decision making narrative: 74-year-old diabetic male with right great toe chronic ulcer for 2 months, increasing redness since this morning, unclear if there was any redness yesterday. He thinks he might have bumped his toe recently. No fever on triage. But possible infection with low blood pressure, history of congestive heart failure. Possible SIRS. Protocol orders initiated by nursing, including x-ray of the affected toe, lactate was sent. Initial IV fluid bolus 1 L. White blood cell count 58222, lactate 3.1 elevated, GFR decreased but similar range prior. Blood cultures requested. History of penicillin allergy. IV clindamycin and IV ciprofloxacin started. Wound culture sent by from nursing from dorsal foot wound. No fluid expressible from plantar aspect right great toe chronic appearing ulcer. X-ray shows first toe distal tuft phalanx fracture, no mention of underlying osteolytic lesions. ESR and CRP elevated. BNP elevated 800s but has been further elevated in the past, however we will not give further aggressive IV fluids for now, for risk of fluid overload given renal and cardiac conditions. Consider admission, patient agreeable, we will contact hospitalist. Case discussed with hospitalist Dr. Matthews, request CT imaging, GFR 35, will pursue noncontrast CT imaging. CT shows fracture, possible osteomyelitis change, distal small gas, no drainable fluid collection. Case discussed with orthopedic surgery Dr. Noland, does not recommend surgery at this time, admit to hospitalist services, he will consult 153, case discussed with hospitalist Dr. Flowers, advises transfer for podiatry consult not available here. We will add IV vancomycin. No obvious contraindication to MRI, GFR low, hold IV contrast, MRI left foot to further delineate osteo versus no osteo. 1840, possible transfer to [facility], currently #10 on their waitlist, consider alternate facilities. MRI left foot performed, report pending. Signed out to Dr. Eneida Monique-patient signed out to me by Dr. Koehler I have seen evaluated patient myself. He has a history of congestive heart failure diabetic great toe ulcer. He presents with sepsis leukocytosis of 15 lactate 3.1 mild hypotension. Imaging has been reviewed CT shows erosive changes and fracture through distal 1st phalanx with extensive soft tissue edema. Overall appearance is most suggestive of osteomyelitis secondary to cellulitis MRI of the foot confirms soft tissue ulceration of the plantar aspect of the 1st distal toe a small amount of fluid about the 1st distal phalangeal tuft. Limited evaluation for drainable fluid collection given noncontrast exam Patient does have some mild erythema with great toe ulcer, does not go beyond the foot. <Azucena Monique, DO - Last Filed: 06/29/24 07:06> Lab Data Labs: Lab Results 06/28/24 06/28/24 06/28/24 Range/Units 11:10 12:18 13:30 WBC 15.2 H (4.5-11.0) X10^3/uL RBC 4.19 L (4.5-5.9) X10^6/uL Hgb 12.3 L (13.5-17.5) g/dL Hct 37.0 L (41-53) % MCV 88.3 (80-100) fL MCH 29.3 (26-34) PG MCHC 33.2 (30-36) % RDW 15.0 H (11.6-14.8) % Plt Count 220 (150-400) X10^3/uL Neut % (Auto) 85.9 H (50-75) % Lymph % (Auto) 4.6 L (25-40) % [place] % (Auto) 9.2 (3-14) % Eos % (Auto) 0.1 L (2-4) % Baso % (Auto) 0.2 (0-2) % Neut # (Auto) 60865 H (4796-3765) /uL Lymph # (Auto) 700 L (9092-3569) /uL [place] # (Auto) 1400 H (0-900) /uL Eos # (Auto) 0 (0-450) /uL Baso # (Auto) 0 (0-100) /uL ESR 70 H (0-15) MM/HR PT 14.5 H (9.4-12.5) SECONDS INR 1.3 (0.9-1.3) APTT 34 (25.1-36.5) SECONDS Sodium 129 L (137-145) mmol/L Potassium 4.7 (3.4-5.1) mmol/L Chloride 95 L (98-107) mmol/L Carbon Dioxide 22 (22-32) mmol/L BUN 50 H (9-20) mg/dL Creatinine 1.98 H (0.66-1.25) mg/dL Estimated GFR 35 L (>60) mL/min BUN/Creatinine Ratio 25.3 H (6-22) Glucose 191 H (80-110) mg/dL Lactate 3.1 H 1.6 (0.7-2.1) mmol/L Calcium 8.5 (8.4-10.2) mg/dL Total Bilirubin 1.8 H (0.2-1.3) mg/dL AST 31 (17-59) IU/L ALT 24 (<50) IU/L Alkaline Phosphatase 74 (38-126) U/L Total Creatine Kinase 248 H (55-170) U/L Troponin I 0.025 (0.01-0.034) ng/mL C-Reactive Protein 13.9 H (<1.0) mg/dL NT-Pro-B Natriuret Pep 845 H (<125) pg/mL Total Protein 6.9 (6.3-8.2) g/dL Albumin 3.9 (3.5-5.0) g/dL Globulin 3.0 (1.7-4.1) g/dL Albumin/Globulin Ratio 1.3 (1.0-2.8) Lipase 240 (23-300) U/L Procalcitonin 2.28 H (<0.5) ng/mL Urine Color Yellow Urine Appearance Clear Urine pH 5.0 (4.5-8.0) Ur Specific [place] 1.020 (1.000-1.035) Urine Protein Negative (Negative) Urine Glucose (UA) Negative (Negative) g/dL Urine Ketones Negative (NEGATIVE) Urine Occult Blood Negative (Negative) Urine Nitrate Negative (Negative) Urine Bilirubin Negative (NEGATIVE) Urine Urobilinogen 1.0 (0.2) E.U./dL Ur Leukocyte Esterase Negative (NEGATIVE) Urine RBC None seen (0-5/HPF) Urine WBC None seen (0-5/HPF) Ur Squamous Epith Cells 1-5 /hpf (0-5/HPF) Urine Bacteria None seen (None) Hyaline Casts 1-5/lpf (None) Ur Culture Indicated? Cult not indicated Vol Urine Centrifuged 10ml (spun) Point of Care Testing Glucose POC 105 Urine Dip Bedside Urine Glucose Negative Bedside Urine Bilirubin - Negative Bedside Urine Ketone - Negative Urine Specific [place] 1.025 Bedside Urine Occult Blood - Negative Bedside Urine pH 5.5 Bedside Urine Protein - Negative Bedside Urine Urobilinogen - Negative Bedside Urine Nitrite - Negative Bedside Urine Leukocytes - Negative Esterase MDM Narrative Medical decision making narrative: 74-year-old diabetic male with right great toe chronic ulcer for 2 months, increasing redness since this morning, unclear if there was any redness yesterday. He thinks he might have bumped his toe recently. No fever on triage. But possible infection with low blood pressure, history of congestive heart failure. Possible SIRS. Protocol orders initiated by nursing, including x-ray of the affected toe, lactate was sent. Initial IV fluid bolus 1 L. White blood cell count 38241, lactate 3.1 elevated, GFR decreased but similar range prior. Blood cultures requested. History of penicillin allergy. IV clindamycin and IV ciprofloxacin started. Wound culture sent by from nursing from dorsal foot wound. No fluid expressible from plantar aspect right great toe chronic appearing ulcer. X-ray shows first toe distal tuft phalanx fracture, no mention of underlying osteolytic lesions. ESR and CRP elevated. BNP elevated 800s but has been further elevated in the past, however we will not give further aggressive IV fluids for now, for risk of fluid overload given renal and cardiac conditions. Consider admission, patient agreeable, we will contact hospitalist. Case discussed with hospitalist Dr. Matthews, request CT imaging, GFR 35, will pursue noncontrast CT imaging. CT shows fracture, possible osteomyelitis change, distal small gas, no drainable fluid collection. Case discussed with orthopedic surgery Dr. Noland, does not recommend surgery at this time, admit to hospitalist services, he will consult 1530, case discussed with hospitalist Dr. Flowers, advises transfer for podiatry consult not available here. We will add IV vancomycin. No obvious contraindication to MRI, GFR low, hold IV contrast, MRI left foot to further delineate osteo versus no osteo. 1840, possible transfer to [facility], currently #10 on their waitlist, consider alternate facilities. MRI left foot performed, report pending. Signed out to Dr. Eneida Monique-patient signed out to me by Dr. Koehler I have seen evaluated patient myself. He has a history of congestive heart failure diabetic great toe ulcer. He presents with sepsis leukocytosis of 15 lactate 3.1 mild hypotension. Imaging has been reviewed CT shows erosive changes and fracture through distal 1st phalanx with extensive soft tissue edema. Overall appearance is most suggestive of osteomyelitis secondary to cellulitis MRI of the foot confirms soft tissue ulceration of the plantar aspect of the 1st distal toe a small amount of fluid about the 1st distal phalangeal tuft. Limited evaluation for drainable fluid collection given noncontrast exam Patient does have some mild erythema with great toe ulcer, does not go beyond the foot. It has been marked it is not continuing to go up the leg. There is gas present on the CT but not convinced that it is necrotizing fasciitis at this time. He has been given a multitude of antibiotics Cipro cefepime Flagyl clinda vein. He did get IV fluids for his MONICA and soft blood pressure He is also chronically on oxygen 2-4 L at baseline 03:05 Dr. Vee hospitalist at updated on symptoms test results and accepts patient Critical Care Time <Azucena Monique, DO - Last Filed: 06/29/24 07:06> Critical Care Time Critical Care Time: Yes Total Critical Care Time: 40 Attestation: The high probability of a clinically significant, sudden or life threatening deterioration of the [cardiovascular] system(s) required my full and direct attention, intervention and personal management. The aggregate critical care time was 40 minutes. 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 Prescriptions: No Action amlodipine 10 mg tablet 10 mg PO BID atorvastatin 40 mg tablet 40 mg PO DAILY furosemide 40 mg tablet 40 mg PO BID Rx Instructions: 0700 & 1200 fluticasone propionate 50 mcg/actuation spray,suspension 50 spray intranasal DAILY losartan 50 mg tablet 50 mg PO BEDTIME metformin 500 mg tablet 1,000 mg PO QID hydrochlorothiazide 50 mg tablet 100 mg PO QAM metoprolol succinate 100 mg tablet extended release 24 hr 100 mg PO QAM tramadol 50 mg tablet 50 mg PO 3XD PRN (Reason: Pain (Scale Score 7-10)) spironolactone 25 mg tablet 25 mg PO BID Rx Instructions: 0700/1200 Adult Low Dose Aspirin 81 mg Tablet 81 mg PO DAILY insulin glargine U-300 conc [Toujeo SoloStar U-300 Insulin] 300 unit/mL (1.5 mL) insulin pen See Rx Instructions .ROUTE .COMPLEX Patient Comments: [NO ORIGINAL SIG] Rx Instructions: Pt doses according to his glucose. Referrals: Paramjit Hurtado MD [Primary Care Provider] -
--- NOTE | 2024-06-28 12:54 | DI.CT.S_ITS ---
PROCEDURE: CT FOOT RIGHT WITHOUT CON INDICATIONS: eval for osteo, deep tissue gas/pus; GFR low TECHNIQUE: Noncontrast 1-1.5 mm axial sections acquired from above the tibiotalar joint to the bottom of the calcaneus, with coronal and sagittal reformats. COMPARISON: [facility], CR, XR TOE RT MIN 2V, 06/28/2024, 11:08. FINDINGS: Image quality: Excellent. As identified on x-ray, there is fracture through the distal tuft of the distal 1st phalanx. Along the dorsal surface, erosive changes are visualized not well seen on x-ray. Extensive soft tissue edema is present. Several foci of air are present within the soft tissue surrounding predominantly the distal aspect of the 1st digit. IMPRESSION: Erosive changes and fracture through the distal 1st phalanx with extensive soft tissue edema. Overall appearance is most suggestive osteomyelitis secondary to cellulitis. As identified above, several small foci of air are present within the soft tissues most consistent with infection possibly gas-forming organism. Dictated by: Kathia Pineda M.D. on 06/28/2024 at 13:51 Approved by: Kathia Pineda M.D. on 06/28/2024 at 13:54
[2024-06-28 12:55] LABS: Reflexed Lactate in 2 Hours Y
[2024-06-28] MEDS: CIPROFLOXACIN 400 MG/200 ML PIGGYBACK 200 MG IV (13:09)
[2024-06-28 13:48] LABS: Lactate 2HR (Lactic Acid Rflx) 1.6 mmol/L (0.7-2.1)
[2024-06-28 14:25] LABS: Appearance Urine UA CLEAR; Bilirubin Urine UA NEGATIVE (NEGATIVE); Color Urine UA YELLOW; Glucose Urine UA NEGATIVE (Negative); Ketones Urine UA NEGATIVE (NEGATIVE); Leukocyte Esterase Urine UA NEGATIVE (NEGATIVE); Nitrite Urine UA NEGATIVE (Negative); Occult Blood Urine UA NEGATIVE (Negative); Protein Urine UA NEGATIVE (Negative)
[2024-06-28 14:36] LABS: Bacteria Urine None Seen; Culture Indicated Urine Cult Not Indicated; Hyaline Casts Urine 1-5/LPF; RBC Urine None Seen (0-5/HPF); Squamous Epithelial Cell Urine 1-5 /HPF (0-5/HPF); Urine Volume 10mL (spun); WBC Urine None Seen (0-5/HPF)
--- NOTE | 2024-06-28 16:17 | DI.MRI.S_ITS ---
PROCEDURE: MR FOOT RT WO CON INDICATIONS: evaluate for osteo changes, GFR 35 TECHNIQUE: Multiphasic, multisequence MRI of the forefoot was performed, without intravenous contrast administration. COMPARISON: [facility], CR, XR TOE RT MIN 2V, 06/28/2024, 11:08. FINDINGS: Image quality: Excellent. Bones and joints: Marked soft tissue edema about the 1st distal toe. Soft tissue irregularity in the plantar aspect of the 1st distal toe, likely representing small soft tissue ulceration. There is diffuse marrow edema of the 1st distal phalanx with associated confluent T1 hypointensity and erosion in the plantar aspect of the 1st distal phalangeal tuft, consistent with osteomyelitis. Small amount of fluid about the 1st distal phalangeal tuft. Soft tissues: The visualized plantar fascia is unremarkable. The flexor, and extensor tendons are unremarkable. Diffuse muscle edema with moderate fatty atrophy, nonspecific and may be secondary to denervation. Diffuse subcutaneous edema of the dorsal mid and forefoot. The Lisfranc ligament is intact. IMPRESSION: 1. Small soft tissue ulceration in the plantar aspect of the 1st distal toe, resulting in osteomyelitis of the 1st distal phalanx. Small amount of fluid about the 1st distal phalangeal tuft. Limited evaluation for drainable fluid collection given noncontrast exam. 2. Diffuse muscle edema with moderate fatty atrophy, nonspecific and may be secondary to denervation. 3. Diffuse subcutaneous edema of the dorsal mid and forefoot. Dictated by: Nancy Mcgee M.D. on 06/28/2024 at 18:52 Approved by: Nancy Mcgee M.D. on 06/28/2024 at 19:00
[2024-06-28] MEDS: VANCOMYCIN 2,000 MG/400 ML PIGGYBACK 200 MG IV (16:31)
--- NOTE | 2024-06-28 19:02 | PC.NURSE ---
[facility] Note: Transfer started at 1600. [facility] on waitlist as of 1749. [facility]. [place] reviewing beds and asked to call back at 1945. Transfer passed to evening [facility].
[2024-06-28] MEDS: CEFEPIME 2 GM in SODIUM CHLORIDE 0.9% 100 ML IV (23:07)
[2024-06-28] MEDS: metroNIDAZOLE 500 MG/100 ML PIGGYBACK 100 MG IV (23:46)
[2024-06-29] VITALS (17 sets, daily range): BP systolic 90–116; BP diastolic 49–69; PULSE 75–92; RESP 18–37; TEMP 36.8; O2SAT 90–96; BMI 39.7
--- NOTE | 2024-06-29 03:09 | PC.NURSE ---
Home medication list verified on 06/28/24 at 1542 by Emily Dubois
--- NOTE | 2024-06-29 03:11 | PC.NURSE ---
Pt confirmed that he only checks his blood sugar in the morning and at bedtime. Pt takes Metformin, and HS Toujeo (depending on glucose reading)
--- NOTE | 2024-10-30 06:58 | ED_ITS ---
HPI - Skin/Abscess/Foreign Bdy General Chief complaint: Skin/Abscess/Foreign Body Stated complaint: abscess r big toe/swelling, pt is diabetic Time Seen by Provider: 06/28/24 11:38 Source: patient Mode of arrival: Wheelchair Limitations: no limitations Related Data Home Medications Medication Instructions Recorded Confirmed amlodipine 10 mg tablet 10 mg PO BID 12/15/23 06/28/24 atorvastatin 40 mg tablet 40 mg PO DAILY 12/15/23 06/28/24 fluticasone propionate 50 50 spray intranasal DAILY 12/15/23 06/28/24 mcg/actuation nasal spray,suspension furosemide 40 mg tablet 40 mg PO BID 12/15/23 06/28/24 hydrochlorothiazide 50 mg tablet 100 mg PO QAM 12/15/23 06/28/24 losartan 50 mg tablet 50 mg PO BEDTIME 12/15/23 06/28/24 metformin 500 mg tablet 1,000 mg PO QID 12/15/23 06/28/24 metoprolol succinate 100 mg 100 mg PO QAM 12/15/23 06/28/24 tablet,extended release 24 hr spironolactone 25 mg tablet 25 mg PO BID 12/15/23 06/28/24 tramadol 50 mg tablet 50 mg PO 3XD PRN Pain (Scale Score 12/15/23 06/28/24 7-10) aspirin 81 mg tablet 81 mg PO DAILY 06/28/24 06/28/24 insulin glargine U-300 conc 300 See Rx Instructions .Route .COMPLEX 06/28/24 06/28/24 unit/mL (1.5 mL) subcutaneous pen (Toujeo SoloStar U-300 Insulin) Allergies Allergy/AdvReac Type Severity Reaction Status Date / Time Penicillins Allergy Unknown Verified 06/28/24 11:03 Patient History Medical History (Updated 07/14/24 @ 00:01 by ) CHF (congestive heart failure) Hypertension Diabetes Social History household members: none Smoking Status: Never smoker alcohol intake: former Smoking Status: Never smoker alcohol intake frequency: 0-2 drinks per day Exam Initial Vital Signs Initial Vital Signs: Vital Signs Temperature 97.4 F L 06/28/24 10:56 Pulse Rate 91 H 06/28/24 10:56 Respiratory Rate 14 06/28/24 10:56 Blood Pressure 99/52 L 06/28/24 10:56 Pulse Oximetry 94 06/28/24 10:56 Oxygen Delivery Method Room Air 06/28/24 10:56 Course Orders Ordered: Discontinued Medications Acetaminophen (Acetaminophen 325 Mg Tablet) 650 mg PO Q6H TABATHA Acetaminophen (Acetaminophen 325 Mg Tablet) 650 mg PO Q6H TABATHA Last Admin: 06/29/24 02:23 Dose: Not Given Documented By: AB Enoxaparin Sodium (Enoxaparin 40 Mg/0.4 Ml Syringe) 40 mg SUBCUT DAILY TABATHA Sodium Chloride (Normal Saline 0.9%) 1,000 mls @ 1,000 mls/hr IV BOLUS ONE Stop: 06/28/24 12:02 Last Infusion: 06/28/24 12:41 Dose: Infused Documented By: Admin: 06/28/24 11:34 Dose: 1,000 mls/hr Documented By: MOSHE Clindamycin Phosphate (Cleocin) 900 mg in 50 mls @ 50 mls/hr IV NOW ONE Stop: 06/28/24 12:39 Last Infusion: 06/28/24 12:57 Dose: Infused Documented By: Admin: 06/28/24 11:55 Dose: 50 mls/hr Documented By: TETE Ciprofloxacin (Cipro) 400 mg in 200 mls @ 200 mls/hr IV NOW ONE Stop: 06/28/24 12:38 Last Admin: 06/28/24 13:09 Dose: Not Given Documented By: JOSIAS Sodium Chloride (Normal Saline 0.9%) 1,000 mls @ 125 mls/hr IV BOLUS ONE Stop: 06/28/24 19:40 Last Infusion: 06/28/24 23:17 Dose: Infused Documented By: Infusion: 06/28/24 18:25 Dose: 125 mls/hr Documented By: Infusion: 06/28/24 17:46 Dose: 0 mls/hr Documented By: Admin: 06/28/24 11:55 Dose: 125 mls/hr Documented By: TETE Ciprofloxacin (Cipro) 400 mg in 200 mls @ 200 mls/hr IV NOW ONE Stop: 06/28/24 14:29 Last Infusion: 06/28/24 14:30 Dose: Infused Documented By: Admin: 06/28/24 13:09 Dose: 200 mls/hr Documented By: JOSIAS Vancomycin HCl 2,000 mg/ (Sodium Chloride) 500 mls @ 250 mls/hr IV NOW ONE Stop: 06/28/24 15:59 Last Admin: 06/28/24 16:31 Dose: Not Given Documented By: TETE Vancomycin HCl/Dextrose (Vancomycin) 2,000 mg in 400 mls @ 200 mls/hr IV NOW ONE Stop: 06/28/24 18:29 Last Infusion: 06/28/24 19:55 Dose: Infused Documented By: Infusion: 06/28/24 18:26 Dose: 200 mls/hr Documented By: Infusion: 06/28/24 17:47 Dose: 0 mls/hr Documented By: Admin: 06/28/24 16:31 Dose: 200 mls/hr Documented By: TETE Cefepime HCl 2 gm/ Sodium (Chloride) 100 mls @ 200 mls/hr IV NOW ONE Stop: 06/28/24 22:49 Last Infusion: 06/28/24 23:50 Dose: Infused Documented By: Admin: 06/28/24 23:07 Dose: 200 mls/hr Documented By: LEANDRA Metronidazole (Flagyl) 500 mg in 100 mls @ 100 mls/hr IV NOW ONE Stop: 06/28/24 23:47 Last Infusion: 06/29/24 00:50 Dose: Infused Documented By: Admin: 06/28/24 23:46 Dose: 100 mls/hr Documented By: LEANDRA Sodium Chloride (Normal Saline 0.9%) 1,000 mls @ 125 mls/hr IV CONT TABATHA Last Infusion: 06/29/24 07:27 Dose: Infused Documented By: Admin: 06/28/24 23:11 Dose: 125 mls/hr Documented By: LEANDRA Metronidazole (Flagyl) 500 mg in 100 mls @ 100 mls/hr IV Q8H TABATHA Last Admin: 06/29/24 02:24 Dose: Not Given Documented By: Cefepime HCl 2 gm/ Sodium (Chloride) 100 mls @ 200 mls/hr IV Q12H TABATHA Metronidazole (Flagyl) 500 mg in 100 mls @ 100 mls/hr IV Q8H TABATHA Vancomycin HCl/Dextrose (Vancomycin) 2,000 mg in 400 mls @ 200 mls/hr IV Q24H TABATHA Naloxone HCl (Naloxone 0.4 Mg/Ml Vial) 0.2 mg IV Q2MIN PRN PRN Reason: Opiate Reversal Ondansetron HCl (Ondansetron 4 Mg/2 Ml Inj) 4 mg IV NOW PRN PRN Reason: Nausea And Vomiting Ondansetron HCl (Ondansetron 4 Mg Odt) 4 mg SL NOW PRN PRN Reason: Nausea And Vomiting Vancomycin HCl (Vancomycin Per Pharmacy) 1 request MISC NOW [facility] MDM - Skin/Abscess/Foreign Bdy Lab Data 06/28/24 11:10 06/28/24 11:10 Labs: Lab Results 06/28/24 06/28/24 06/28/24 Range/Units 11:10 12:18 13:30 WBC 15.2 H (4.5-11.0) X10^3/uL RBC 4.19 L (4.5-5.9) X10^6/uL Hgb 12.3 L (13.5-17.5) g/dL Hct 37.0 L (41-53) % MCV 88.3 (80-100) fL MCH 29.3 (26-34) PG MCHC 33.2 (30-36) % RDW 15.0 H (11.6-14.8) % Plt Count 220 (150-400) X10^3/uL Neut % (Auto) 85.9 H (50-75) % Lymph % (Auto) 4.6 L (25-40) % Hughes % (Auto) 9.2 (3-14) % Eos % (Auto) 0.1 L (2-4) % Baso % (Auto) 0.2 (0-2) % Neut # (Auto) 65886 H (1160-9329) /uL Lymph # (Auto) 700 L (1733-0469) /uL Hughes # (Auto) 1400 H (0-900) /uL Eos # (Auto) 0 (0-450) /uL Baso # (Auto) 0 (0-100) /uL ESR 70 H (0-15) MM/HR PT 14.5 H (9.4-12.5) SECONDS INR 1.3 (0.9-1.3) APTT 34 (25.1-36.5) SECONDS Sodium 129 L (137-145) mmol/L Potassium 4.7 (3.4-5.1) mmol/L Chloride 95 L (98-107) mmol/L Carbon Dioxide 22 (22-32) mmol/L BUN 50 H (9-20) mg/dL Creatinine 1.98 H (0.66-1.25) mg/dL Estimated GFR 35 L (>60) mL/min BUN/Creatinine Ratio 25.3 H (6-22) Glucose 191 H (80-110) mg/dL Lactate 3.1 H 1.6 (0.7-2.1) mmol/L Calcium 8.5 (8.4-10.2) mg/dL Total Bilirubin 1.8 H (0.2-1.3) mg/dL AST 31 (17-59) IU/L ALT 24 (<50) IU/L Alkaline Phosphatase 74 (38-126) U/L Total Creatine Kinase 248 H (55-170) U/L Troponin I 0.025 (0.01-0.034) ng/mL C-Reactive Protein 13.9 H (<1.0) mg/dL NT-Pro-B Natriuret Pep 845 H (<125) pg/mL Total Protein 6.9 (6.3-8.2) g/dL Albumin 3.9 (3.5-5.0) g/dL Globulin 3.0 (1.7-4.1) g/dL Albumin/Globulin Ratio 1.3 (1.0-2.8) Lipase 240 (23-300) U/L Procalcitonin 2.28 H (<0.5) ng/mL Urine Color Yellow Urine Appearance Clear Urine pH 5.0 (4.5-8.0) Ur Specific [place] 1.020 (1.000-1.035) Urine Protein Negative (Negative) Urine Glucose (UA) Negative (Negative) g/dL Urine Ketones Negative (NEGATIVE) Urine Occult Blood Negative (Negative) Urine Nitrate Negative (Negative) Urine Bilirubin Negative (NEGATIVE) Urine Urobilinogen 1.0 (0.2) E.U./dL Ur Leukocyte Esterase Negative (NEGATIVE) Urine RBC None seen (0-5/HPF) Urine WBC None seen (0-5/HPF) Ur Squamous Epith Cells 1-5 /hpf (0-5/HPF) Urine Bacteria None seen (None) Hyaline Casts 1-5/lpf (None) Ur Culture Indicated? Cult not indicated Vol Urine Centrifuged 10ml (spun) Point of Care Testing Glucose POC 105 Urine Dip Bedside Urine Glucose Negative Bedside Urine Bilirubin - Negative Bedside Urine Ketone - Negative Urine Specific [place] 1.025 Bedside Urine Occult Blood - Negative Bedside Urine pH 5.5 Bedside Urine Protein - Negative Bedside Urine Urobilinogen - Negative Bedside Urine Nitrite - Negative Bedside Urine Leukocytes - Negative Esterase Discharge Plan Departure Patient Disposition: [facility] Clinical Impression: Cellulitis of foot, right, Diabetic foot ulcer, Fracture of right great toe, Osteomyelitis of great toe of right foot Prescriptions: No Action amlodipine 10 mg tablet 10 mg PO BID atorvastatin 40 mg tablet 40 mg PO DAILY furosemide 40 mg tablet 40 mg PO BID Rx Instructions: 0700 & 1200 fluticasone propionate 50 mcg/actuation spray,suspension 50 spray intranasal DAILY losartan 50 mg tablet 50 mg PO BEDTIME metformin 500 mg tablet 1,000 mg PO QID hydrochlorothiazide 50 mg tablet 100 mg PO QAM metoprolol succinate 100 mg tablet extended release 24 hr 100 mg PO QAM tramadol 50 mg tablet 50 mg PO 3XD PRN (Reason: Pain (Scale Score 7-10)) spironolactone 25 mg tablet 25 mg PO BID Rx Instructions: 0700/1200 Adult Low Dose Aspirin 81 mg Tablet 81 mg PO DAILY insulin glargine U-300 conc [Toujeo SoloStar U-300 Insulin] 300 unit/mL (1.5 mL) insulin pen See Rx Instructions .ROUTE .COMPLEX Patient Comments: [NO ORIGINAL SIG] Rx Instructions: Pt doses according to his glucose. Referrals: Paramjit Hurtado MD [Primary Care Provider] -
== END 2024-06-29 07:31 | disposition short-term general hospital (02) ==
PROVIDERS: Emergency Medicine; Emergency Provider Emergency Medicine; PCP Family Medicine
DX: L03.115 Cellulitis of right lower limb (principal); S92.421A Displaced fracture of distal phalanx of right great toe, initial encounter for closed fracture; E11.621 Type 2 diabetes mellitus with foot ulcer; M86.9 Osteomyelitis, unspecified; R60.9 Edema, unspecified; I50.9 Heart failure, unspecified; I95.9 Hypotension, unspecified; R79.89 Other specified abnormal findings of blood chemistry; Z79.899 Other long term (current) drug therapy
CPT/HCPCS: 36415; 71045; 73660; 73700; 73718; 80053; 81001; 81003; 82550; 82962; 83605; 83690; 83880; 84145; 84484; 85025; 85610; 85651; 85730; 86140; 87040; 87070; 87075; 87205; 93005; 93010; 96361; 96365; 96366; 96367; 99285; 99291; J0692; J0744

== ENCOUNTER → 2024-12-11 15:01 | Outpatient (CLI) | payer MEDICARE, OTHER, SELFPAY ==
[2024-06-29 02:40] VITALS: BMI 39.7
--- NOTE | 2024-12-11 15:04 | DI.RAD.S_ITS ---
PROCEDURE: XR FOOT LT MIN 3V INDICATIONS: chronic ulcer on foot TECHNIQUE: 3 views of the foot were acquired. COMPARISON: None. FINDINGS: Bones: Moderate pes planus noted. There is radiolucency in the periarticular region of the 5th MTP on the medial side. While this likely represents atypical degeneration, this could potentially indicate septic arthritis and osteomyelitis. Joints: Moderate 2nd 3rd 4th and 5th DIP degeneration appreciated with mild degeneration in the remaining PIP and MTP joints. Soft tissues: Mild diffuse soft swelling noted. There is calcification Achilles tendon insertion on the calcaneus IMPRESSION: Radiolucency in the medial base of the 5th MTP. In all likelihood , this is merely atypical degeneration . If, however, there is point tenderness and erythema in this specific location, than consider MRI to evaluate for septic arthritis and osteomyelitis Dictated by: Roberto Penaloza M.D. on 12/12/2024 at 11:54 Approved by: Roberto Penaloza M.D. on 12/12/2024 at 11:57
--- NOTE | 2024-12-11 15:04 | DI.RAD.S_ITS ---
PROCEDURE: XR KNEE LT 3V INDICATIONS: Pain in left knee TECHNIQUE: 3 views of the knee were acquired. COMPARISON: None. FINDINGS: Bones: There are no osseous abnormalities. Joints: The tibialfemoral and patellofemoral joints show mild degeneration. No effusion. Soft tissues: Normal IMPRESSION: Mild degeneration. Dictated by: Roberto Penaloza M.D. on 12/12/2024 at 11:53 Approved by: Roberto Penaloza M.D. on 12/12/2024 at 11:54
== END ==
PROVIDERS: PCP Family Medicine; Referring Provider Family Medicine; Visit Provider Family Medicine
DX: M25.562 Pain in left knee (principal); M19.072 Primary osteoarthritis, left ankle and foot; M17.12 Unilateral primary osteoarthritis, left knee; L97.509 Non-pressure chronic ulcer of other part of unspecified foot with unspecified severity; M21.42 Flat foot [pes planus] (acquired), left foot; M79.89 Other specified soft tissue disorders; M65.872 Other synovitis and tenosynovitis, left ankle and foot
CPT/HCPCS: 73562; 73630

== ENCOUNTER → 2025-05-01 12:36 | Outpatient (CLI) | payer MEDICARE, OTHER, SELFPAY ==
[2024-06-29 02:40] VITALS: BMI 39.7
--- NOTE | 2025-05-01 12:39 | DI.RAD.S_ITS ---
PROCEDURE: XR CHEST 2V INDICATIONS: CHEST TECHNIQUE: 2 views of the chest were acquired. COMPARISON: [facility], CR, XR CHEST 1V, 06/28/2024, 11:08. FINDINGS: Surgical changes and devices: None. Lungs and pleura: Diffuse bilateral increased prominence of the pulmonary vasculature. No evidence of focal consolidation. No pleural effusions or pneumothorax. Mediastinum: Mediastinal contours are normal. Heart size is normal. Atherosclerotic vascular calcifications. Bones and chest wall: No suspicious bony abnormalities. Soft tissues appear unremarkable. IMPRESSION: Diffuse bilateral increased prominence of the pulmonary vasculature. No evidence of focal consolidation. Dictated by: Casey Noriega M.D. on 05/04/2025 at 4:14 Approved by: Casey Noriega M.D. on 05/04/2025 at 4:57
== END ==
PROVIDERS: PCP Family Medicine; Referring Provider Family Medicine; Visit Provider Family Medicine
DX: R05.9 Cough, unspecified (principal)
CPT/HCPCS: 71046

== ENCOUNTER → 2025-05-13 08:48 | Outpatient (CLI) | payer MEDICARE, OTHER, SELFPAY ==
[2024-06-29 02:40] VITALS: BMI 39.7
--- NOTE | 2025-05-13 08:50 | DI.ECHO.S_ITS ---
[place] [facility]---------+ [facility] : : [id number] : : [place] : : [id number] : : Phone: [phone] Echocardiogram Report + + :Name: HASMUKH CHAIREZ Study Date: 05/13/2025 Height: 71 in : :[facility] ReadingLocation: Weight: 281 lb : : Gender: Male BSA: 2.4 m2 : :: 1950 Age: 75 yrs BP: 109/56 mmHg: :Reason For Study: ATHEROSCLEROSIS : :Ordering Physician: KAYLA, : :MARY Mckeon Performed By: Cornell Geiger : :Referring: MARY GARZA : + + Interpretation Summary The study quality was technically difficult. The ejection fraction is estimated to be 65-70%. The mitral valve leaflets are moderately calcified. The mitral valve mean gradient is 3.0 mmHg. The aortic valve is mildly calcified. There is mild aortic stenosis. There is trace tricuspid regurgitation. The ascending aorta is mildly enlarged. Procedure: A two-dimensional transthoracic echocardiogram with color flow and Doppler was performed. A contrast injection of Definity was performed to improve assessment of LV function. The study quality was technically difficult. Comparison is made with the echocardiogram of 12/17/2023. The patient was in normal sinus rhythm during the exam. Left Ventricle: The left ventricle is mildly dilated. Left ventricular wall thickness is moderately increased. There is no ventricular septal defect visualized. The ejection fraction is estimated to be 65-70%. There are no focal wall motion abnormalities. Right Ventricle: The right ventricle is not well visualized. Atria: The left atrium is not well visualized. Right atrial size is normal. There is no Doppler evidence for an interatrial shunt. Mitral Valve: There is moderate mitral annular calcification. The mitral valve leaflets are moderately calcified. The mitral valve mean gradient is 3.0 mmHg. There is no mitral regurgitation noted. Aortic Valve: The aortic valve is trileaflet. The aortic valve is mildly calcified. There is mild aortic stenosis. The peak aortic velocity is 2.04 m/sec. The aortic valve mean gradient is 9.4 mmHg. The calculated aortic valve area is 1.6 cm2. No aortic regurgitation is present. Tricuspid Valve: The tricuspid valve leaflets are thin and pliable. There is trace tricuspid regurgitation. Pulmonic Valve: The pulmonic valve is not well visualized. There is no pulmonic valvular regurgitation. Great Vessels: The aortic root is mildly dilated. The ascending aorta is mildly enlarged. The pulmonary artery is normal size. The IVC is dilated (diameter is greater than 2.1 cm) yet it collapses greater than 50% with a sniff. This suggests a right atrial pressure of 8 mm Hg. Pericardium/ Pleura There is no pericardial effusion. There is no pleural effusion. MMode/2D Measurements & Calculations LVIDd: 6.3 cm LVOT diam: 2.0 cm LVIDs: 3.5 cm Ao root diam: 3.9 cm FS: 43.9 % asc Aorta Diam: 3.8 cm EPSS: 1.4 cm IVSd: 1.6 cm LVPWd: 1.4 cm LV moore. diameter/BSA (cm/m^2): 2.6 LV sys. diameter/BSA (cm/m^2): 1.5 LA A4 area: 39.2 cm2 RA long axis: 4.4 cm LA length (vol): 7.7 cm RA area: 17.1 cm2 RA vol: 55.7 ml RA : 22.9 ml/m2 IVC diam: 2.5 cm TAPSE: 2.4 cm Doppler Measurements & Calculations Ao V2 max: 203.5 cm/sec LVOT Max Tevin: 84.6 cm/sec Ao V2 mean: 144.1 cm/sec LV V1 max P.9 mmHg Ao max P.6 mmHg LV V1 VTI: 22.9 cm Ao mean P.4 mmHg CHE(I,D): 1.6 cm2 Ao V2 VTI: 46.1 cm CHE(V,D): 1.3 cm2 sev ratio: 0.50 CHE indexed to BSA (cm^2/m^2): 0.64 MV E max tevin: 131.5 cm/sec TR max tevin: 362.7 cm/sec MV A max tevin: 67.5 cm/sec TR max P.6 mmHg MV E/A: 1.9 PA V2 max: 104.9 cm/sec Med Peak E' Tevin: 5.0 cm/sec PA V2 mean: 75.8 cm/sec E/E' med: 26.0 PA mean P.5 mmHg Lat Peak E' Tevin: 5.9 cm/sec PA pr(Accel): 43.0 mmHg E/E' lat: 22.5 E/e' average: 24.3 MV dec time: 0.28 sec MVA(VTI): 1.7 cm2 MV V2 mean: 74.9 cm/sec SV(LVOT): 71.9 ml MV mean P.0 mmHg MV V2 VTI: 42.5 cm Reading Physician:04:08 PM
== END ==
LOC: ECHO 08:49
PROVIDERS: PCP Family Medicine; Referring Provider Family Medicine; Visit Provider Family Medicine
DX: I34.81 Nonrheumatic mitral (valve) annulus calcification (principal); I35.2 Nonrheumatic aortic (valve) stenosis with insufficiency; I77.810 Thoracic aortic ectasia; I70.0 Atherosclerosis of aorta; I77.89 Other specified disorders of arteries and arterioles; E66.01 Morbid (severe) obesity due to excess calories; R60.9 Edema, unspecified
CPT/HCPCS: C8929; Q9957

== ENCOUNTER 2025-05-14 13:26 | Inpatient (IN) | payer MEDICARE, OTHER, SELFPAY ==
[2024-06-29 02:40] VITALS: BMI 39.7
[2025-05-14] VITALS (7 sets, daily range): BP systolic 122–133; BP diastolic 45–63; PULSE 67–78; RESP 14–23; TEMP 36.2–36.8; O2SAT 91–95; BMI 39.2
--- NOTE | 2025-05-14 13:35 | EKG_ITS ---
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
--- NOTE | 2025-05-14 14:09 | DI.RAD.S_ITS ---
PROCEDURE: XR CHEST 1V INDICATIONS: Shortness of breath TECHNIQUE: One view of the chest was acquired. COMPARISON: [facility], CR, XR CHEST 1V, 06/28/2024, 11:08. [facility], CR, XR CHEST 2V, 05/01/2025, 12:34. FINDINGS: Surgical changes and devices: None. Lungs and pleura: On this semiupright portable chest examination, no large pneumothorax or large pleural effusions are seen. No focal infiltrates are seen. Generalized moderate interstitial prominence can be seen. Mediastinum: Mediastinal contours appear normal. Heart size is moderately enlarged. Atherosclerotic calcification of the aortic arch is noted. Bones and chest wall: No suspicious bony lesions. Age-appropriate bony degenerative changes are seen. Overlying soft tissues appear unremarkable. IMPRESSION: Cardiomegaly and interstitial prominence. Please correlate with patient presentation, physical examination findings, and laboratory values for congestive heart failure. Dictated by: Sudheer Sorenson M.D. on 05/14/2025 at 13:36 Approved by: Sudheer Sorenson M.D. on 05/14/2025 at 13:37
[2025-05-14 14:15] LABS: Add Manual Diff / Slide Review NO; Hematocrit 42.0 % (41-53); Hemoglobin 13.5 g/dL (13.5-17.5); Lymphocytes Absolute Auto 900 /uL (1100-4500); Mean Corpuscular HGB Conc 32.1 % (30-36); Mean Corpuscular Hemoglobin 28.7 PG (26-34); Mean Corpuscular Volume 89.3 fL (80-100); Platelet Count 297 X10^3/uL (150-400)
[2025-05-14 14:23] LABS: Alanine Aminotransferase 14 IU/L (<50); Albumin 3.7 g/dL (3.5-5.0); Albumin Globulin Ratio 1.2 (1.0-2.8); Alkaline Phosphatase 74 U/L (38-126); Blood Urea Nitrogen 54 mg/dL (9-20); Calcium 9.1 mg/dL (8.4-10.2); Carbon Dioxide 34 mmol/L (22-32); Chloride 97 mmol/L (98-107); Estimated Glomerular Filt Rate 52 mL/min (>60); Globulin 3.1 g/dL (1.7-4.1); Glucose 114 mg/dL (70-99); HEMOLYSIS < 15 (0-50); Lactate (Lactic Acid) 1.0 mmol/L (0.7-2.1); Potassium 4.9 mmol/L (3.4-5.1); Sodium 140 mmol/L (137-145); Total Protein 6.8 g/dL (6.3-8.2)
[2025-05-14 14:35] LABS: NT-proBNP (BNP-Adult 18+) 1440 pg/mL (<450); Troponin I 0.024 ng/mL (0.01-0.034)
--- NOTE | 2025-05-14 14:50 | ED.SOB ---
HPI - SOB/Dyspnea General Chief Complaint: Shortness of Breath/Dyspnea Stated Complaint: SOB Time Seen by Provider: 05/14/25 14:37 Source: patient and EMS Mode of arrival: EMS Limitations: no limitations History of Present Illness HPI Narrative: This is a 75-year-old man with type 2 diabetes, COPD with home oxygen requirement and chronic hypoxic respiratory failure and history of congestive heart failure with preserved ejection fraction. He is complaining of shortness of breath has been progressive over about 3 weeks. He does not believe that he has been gaining weight, he does not have a significant cough he has not been having fevers he has not been having chest pain. At baseline he is on 4-1/2 L of oxygen via nasal cannula at home. Says that he has been taking his medications, says that he thinks he has actually lost weight, patient reports he is having difficulty caring for himself secondary to his dyspnea. He was admitted here in November of 2023 was dyspnea. During that admission he was treated for heart failure Wai in his COPD exacerbation. LV EF was preserved he had mild aortic stenosis and moderate mitral stenosis. Related Data Home Medications ?Medication ?Instructions ?Recorded ?Confirmed amlodipine 10 mg tablet 10 mg PO BID 12/15/23 06/28/24 atorvastatin 40 mg tablet 40 mg PO DAILY 12/15/23 06/28/24 fluticasone propionate 50 50 spray intranasal DAILY 12/15/23 06/28/24 mcg/actuation nasal spray,suspension furosemide 40 mg tablet 40 mg PO BID 12/15/23 06/28/24 hydrochlorothiazide 50 mg tablet 100 mg PO QAM 12/15/23 06/28/24 losartan 50 mg tablet 50 mg PO BEDTIME 12/15/23 06/28/24 metformin 500 mg tablet 1,000 mg PO QID 12/15/23 06/28/24 metoprolol succinate 100 mg 100 mg PO QAM 12/15/23 06/28/24 tablet,extended release 24 hr spironolactone 25 mg tablet 25 mg PO BID 12/15/23 06/28/24 tramadol 50 mg tablet 50 mg PO 3XD PRN Pain (Scale Score 12/15/23 06/28/24 7-10) aspirin 81 mg tablet 81 mg PO DAILY 06/28/24 06/28/24 insulin glargine U-300 conc 300 See Rx Instructions .Route .COMPLEX 06/28/24 06/28/24 unit/mL (1.5 mL) subcutaneous pen (Toujeo SoloStar U-300 Insulin) Allergies Allergy/AdvReac Type Severity Reaction Status Date / Time Penicillins Allergy Unknown Verified 06/28/24 11:03 Patient History Medical History (Updated 07/14/24 @ 00:01 by ) CHF (congestive heart failure) Hypertension Diabetes Social History household members: none alcohol intake: former Smoking Status: Never smoker alcohol intake frequency: 0-2 drinks per day Exam Initial Vital Signs Initial Vital Signs: Vital Signs Temperature 98.3 F 05/14/25 13:25 Pulse Rate 76 05/14/25 13:25 Respiratory Rate 19 05/14/25 13:25 Blood Pressure 126/59 L 05/14/25 13:25 Pulse Oximetry 93 05/14/25 13:25 Oxygen Delivery Method Nasal Cannula 05/14/25 13:25 Oxygen Flow Rate 4 05/14/25 13:25 vital signs are reviewed Const Other: Patient is on 4-1/2 L nasal cannula he appears dyspneic [facility] Head: normocephalic and atraumatic Face and sinus: face symmetric Mouth: moist mucous membranes Neck Other: Unable to assess jugular venous distention secondary to body habitus Resp Other: Rales to 2/3, decreased air movement no wheezes Cardio Other: Regular rhythm and rate no murmur rub or gallop GI Other: Abdomen is soft normal bowel sounds and nontender Skin Other: Warm and dry Neuro Other: Alert fully oriented Extrem Other: No pitting edema Course Orders Ordered: ED Orders 05/14/25 13:34 Complete Blood Count AUTO DIFF Stat Comprehensive Metabolic Panel Stat Lactate (Lactic Acid) Stat NT-proBNP (BNP-Adult 18+) Stat Prothrombin Time INR Stat Troponin I Stat 05/14/25 13:35 EKG-12 Lead Routine 05/14/25 14:09 XR chest 1V Stat Measure peak expiratory flow STAT RT Consult Eval and Treat STAT Discontinued Medications Furosemide 60 mg/ Sodium (Chloride) 56 mls @ 112 mls/hr IV NOW ONE Stop: 05/14/25 14:58 Consultations Consultation #1: At 3:00 p.m., case is discussed with hospitalist, Dr. Flowers, accepts admission Vital Signs Vital signs: Vital Signs - 8 hr 05/14/25 13:25 05/14/25 13:43 05/14/25 14:00 Temperature 98.3 F Pulse Rate 76 72 78 Respiratory Rate 19 21 23 Blood Pressure 126/59 L Pulse Oximetry 93 93 91 Oxygen Delivery Method Nasal Cannula Nasal Cannula Oxygen Flow Rate 4 4 05/14/25 14:00 05/14/25 14:30 Temperature Pulse Rate 73 Respiratory Rate 14 Blood Pressure 133/63 Pulse Oximetry 95 Oxygen Delivery Method Oxygen Flow Rate MDM - SOB/Dyspnea Lab Data Lab results narrative: CBC is unremarkable, CMP notable for a mildly elevated creatinine. ProBNP is elevated at 1440, his troponin is normal 05/14/25 13:34 05/14/25 13:34 Labs: Lab Results 05/14/25 Range/Units 13:34 WBC 10.6 (4.5-11.0) X10^3/uL RBC 4.70 (4.5-5.9) X10^6/uL Hgb 13.5 (13.5-17.5) g/dL Hct 42.0 (41-53) % MCV 89.3 (80-100) fL MCH 28.7 (26-34) PG MCHC 32.1 (30-36) % RDW 16.4 H (11.6-14.8) % Plt Count 297 (150-400) X10^3/uL Neut % (Auto) 82.2 H (50-75) % Lymph % (Auto) 8.2 L (25-40) % [place] % (Auto) 7.8 (3-14) % Eos % (Auto) 1.1 L (2-4) % Baso % (Auto) 0.7 (0-2) % Neut # (Auto) 8700 H (7658-7725) /uL Lymph # (Auto) 900 L (4369-9144) /uL [place] # (Auto) 800 (0-900) /uL Eos # (Auto) 100 (0-450) /uL Baso # (Auto) 100 (0-100) /uL PT 14.2 H (9.4-12.5) SECONDS INR 1.3 (0.9-1.3) Sodium 140 (137-145) mmol/L Potassium 4.9 (3.4-5.1) mmol/L Chloride 97 L (98-107) mmol/L Carbon Dioxide 34 H (22-32) mmol/L BUN 54 H (9-20) mg/dL Creatinine 1.42 H (0.66-1.25) mg/dL Estimated GFR 52 L (>60) mL/min BUN/Creatinine Ratio 38.0 H (6-22) Glucose 114 H (70-99) mg/dL Lactate 1.0 (0.7-2.1) mmol/L Calcium 9.1 (8.4-10.2) mg/dL Total Bilirubin 2.1 H (0.2-1.3) mg/dL AST 24 (17-59) IU/L ALT 14 (<50) IU/L Alkaline Phosphatase 74 (38-126) U/L Troponin I 0.024 (0.01-0.034) ng/mL NT-Pro-B Natriuret Pep 1440 H (<450) pg/mL Total Protein 6.8 (6.3-8.2) g/dL Albumin 3.7 (3.5-5.0) g/dL Globulin 3.1 (1.7-4.1) g/dL Albumin/Globulin Ratio 1.2 (1.0-2.8) Imaging Data Chest x-ray: My Impression: Independent review of chest x-ray, cardiomegaly and pulmonary edema Radiologist's Impression: [place] [address] XRay Report Signed Patient: Humble Ospina MR#: [id number] : 1950 Acct:[id number] Age/Sex: 75 / M Date of Service: 05/14/25 Loc: ED Accession Number: [id number] Procedure: XR chest 1V Ordering Provider: Galileo Schmitt MD PROCEDURE: XR CHEST 1V INDICATIONS: Shortness of breath TECHNIQUE: One view of the chest was acquired. COMPARISON: [facility], CR, XR CHEST 1V, 06/28/2024, 11:08. [facility], CR, XR CHEST 2V, 05/01/2025, 12:34. FINDINGS: Surgical changes and devices: None. Lungs and pleura: On this semiupright portable chest examination, no large pneumothorax or large pleural effusions are seen. No focal infiltrates are seen. Generalized moderate interstitial prominence can be seen. Mediastinum: Mediastinal contours appear normal. Heart size is moderately enlarged. Atherosclerotic calcification of the aortic arch is noted. Bones and chest wall: No suspicious bony lesions. Age-appropriate bony degenerative changes are seen. Overlying soft tissues appear unremarkable. IMPRESSION: Cardiomegaly and interstitial prominence. Please correlate with patient presentation, physical examination findings, and laboratory values for congestive heart failure. Dictated by: Sudheer Sorenson M.D. on 05/14/2025 at 13:36 Approved by: Sudeher Sorenson M.D. on 05/14/2025 at 13:37 ECG Data Attestation: I personally reviewed and interpreted this ECG as follows: (ECG shows sinus rhythm at [address] segment changes PVCs) MDM Narrative Medical decision making narrative: 75-year-old male with COPD and heart failure presenting with increasing shortness of breath for 3 weeks has been progressive. He appears obviously dyspneic at rest now and reports difficulty with caring for himself secondary to dyspnea. Differential diagnosis includes COPD exacerbation heart failure, at present I favor heart failure as he he is not wheezing. There is pulmonary edema his chest x-ray and proBNP is elevated. I see no signs of pneumonia. Going to order additional furosemide and I think it appropriate to admit him to the hospitalist service Discharge Plan Departure Prescriptions: No Action amlodipine 10 mg tablet 10 mg PO BID atorvastatin 40 mg tablet 40 mg PO DAILY furosemide 40 mg tablet 40 mg PO BID Rx Instructions: 0700 & 1200 fluticasone propionate 50 mcg/actuation spray,suspension 50 spray intranasal DAILY losartan 50 mg tablet 50 mg PO BEDTIME metformin 500 mg tablet 1,000 mg PO QID hydrochlorothiazide 50 mg tablet 100 mg PO QAM metoprolol succinate 100 mg tablet extended release 24 hr 100 mg PO QAM tramadol 50 mg tablet 50 mg PO 3XD PRN (Reason: Pain (Scale Score 7-10)) spironolactone 25 mg tablet 25 mg PO BID Rx Instructions: 0700/1200 Adult Low Dose Aspirin 81 mg Tablet 81 mg PO DAILY insulin glargine U-300 conc [Toujeo SoloStar U-300 Insulin] 300 unit/mL (1.5 mL) insulin pen See Rx Instructions .ROUTE .COMPLEX Patient Comments: [NO ORIGINAL SIG] Rx Instructions: Pt doses according to his glucose. Referrals: Paramjit Hurtado MD [Primary Care Provider, [facility]] Admit Date/Time: 05/14/25 15:01
[2025-05-14 14:59] LABS: INR 1.3 (0.9-1.3); Prothrombin Time 14.2 SECONDS (9.4-12.5)
[2025-05-14] MEDS: FUROSEMIDE 60 MG in SODIUM CHLORIDE 0.9% 50 ML 112 MG IV (15:10)
--- NOTE | 2025-05-14 15:31 | PM.HP.1 ---
History of Present Illness History of Present Illness Date Patient Seen: 05/14/25 Time Patient Seen: 16:25 Chief complaint: SOB Narrative: Patient was a 75-year-old male with diabetes type 2, COPD on home oxygen with chronic respiratory failure as well as diastolic heart failure. He presents with 3 weeks of progressive fatigue, and dyspnea on exertion. His called the ambulance today because of his slow speaking on the telephone. He notes some intermittent pressure but denies any rectal bleeding or melena. He denies any nausea. He was noticing a little more swelling in his legs and some truncal edema. No scrotal edema. He was given IV Lasix in the ED and does feel little bit better. He was a known history of previous mild aortic stenosis and moderate mitral stenosis. He lives alone, in [place]. He usually uses 4.5 L of oxygen in his baseline. He denies any URI symptoms such as rhinorrhea, sore throat, or cough. No constipation, or diarrhea. No hematuria or dysuria. ED course: Exam consistent with volume overload, given IV Lasix. [facility] Medical History CHF (congestive heart failure) Hypertension Diabetes Social History household members: none Smoking Status: Never smoker alcohol intake: former Meds Home Medications and Allergies Home Medications ?Medication ?Instructions ?Recorded ?Confirmed ?Type amlodipine 10 mg tablet 10 mg PO BID 12/15/23 06/28/24 History atorvastatin 40 mg tablet 40 mg PO DAILY 12/15/23 06/28/24 History fluticasone propionate 50 50 spray intranasal DAILY 12/15/23 06/28/24 History mcg/actuation nasal spray,suspension furosemide 40 mg tablet 40 mg PO BID 12/15/23 06/28/24 History hydrochlorothiazide 50 mg tablet 100 mg PO QAM 12/15/23 06/28/24 History losartan 50 mg tablet 50 mg PO BEDTIME 12/15/23 06/28/24 History metformin 500 mg tablet 1,000 mg PO QID 12/15/23 06/28/24 History metoprolol succinate 100 mg 100 mg PO QAM 12/15/23 06/28/24 History tablet,extended release 24 hr spironolactone 25 mg tablet 25 mg PO BID 12/15/23 06/28/24 History tramadol 50 mg tablet 50 mg PO 3XD PRN Pain (Scale Score 12/15/23 06/28/24 History 7-10) aspirin 81 mg tablet 81 mg PO DAILY 06/28/24 06/28/24 History insulin glargine U-300 conc 300 See Rx Instructions .Route .COMPLEX 06/28/24 06/28/24 History unit/mL (1.5 mL) subcutaneous pen (Toujeo SoloStar U-300 Insulin) Allergies Allergy/AdvReac Type Severity Reaction Status Date / Time Penicillins Allergy Unknown Verified 06/28/24 11:03 Review of Systems Review of Systems Narrative: All else reviewed and otherwise unremarkable except as noted in the history and physical. Exam Vital Signs (past 8 hours): - 05/14/25 13:25 05/14/25 13:43 05/14/25 14:00 Temperature 98.3 F Pulse Rate 76 72 78 Respiratory Rate 19 21 23 Blood Pressure 126/59 L Pulse Oximetry 93 93 91 Oxygen Delivery Method Nasal Cannula Nasal Cannula Oxygen Flow Rate 4 4 05/14/25 14:00 05/14/25 14:30 Temperature Pulse Rate 73 Respiratory Rate 14 Blood Pressure 133/63 Pulse Oximetry 95 Oxygen Delivery Method Oxygen Flow Rate Oxygen Delivery Method Nasal Cannula Oxygen Flow Rate 4 Narrative Exam Narrative: NAD, alert and oriented, fluent speech, calm. Flat affect, slow to speak and slow to answer questions. Normocephalic skull, EOMI, anicteric sclera, symmetric pupils. Oropharynx unremarkable, no droop. Neck supple, midline trachea, no adenopathy. Lungs clear, normal rate and effort. Heart regular, no murmur gallop or rub. Abdomen is soft, non distended and non tender. Extremities are 1+ edema and chronic venous stasis changes. Skin is free of rash or lesions. Joints are not swollen or deformed. Judgment appears to be normal. Some truncal edema Objective ECG Impression: Intervals [place] Rate: 81 P: 56 WA: 154 QRS: 10 QRSD: 90 T: 40 QT: 384 QTc: 446 Interpretive Statements Sinus rhythm with frequent premature ventricular complexes Electronically Signed On 05-14-2025 15:10:51 PDT by Nj Flowers Imaging Multiple studies:: Radiologist's impression: ECHO: The study quality was technically difficult. The ejection fraction is estimated to be 65-70%. The mitral valve leaflets are moderately calcified. The mitral valve mean gradient is 3.0 mmHg. The aortic valve is mildly calcified. There is mild aortic stenosis. There is trace tricuspid regurgitation. The ascending aorta is mildly enlarged. CXR: Cardiomegaly and interstitial prominence. Please correlate with patient presentation, physical examination findings, and laboratory values for congestive heart failure. Labs 05/14/25 13:34 05/14/25 13:34 Labs: Laboratory Results - last 24 hr 05/14/25 13:34 WBC 10.6 RBC 4.70 Hgb 13.5 Hct 42.0 MCV 89.3 MCH 28.7 MCHC 32.1 RDW 16.4 H Plt Count 297 Neut % (Auto) 82.2 H Lymph % (Auto) 8.2 L [place] % (Auto) 7.8 Eos % (Auto) 1.1 L Baso % (Auto) 0.7 Neut # (Auto) 8700 H Lymph # (Auto) 900 L [place] # (Auto) 800 Eos # (Auto) 100 Baso # (Auto) 100 PT 14.2 H INR 1.3 Sodium 140 Potassium 4.9 Chloride 97 L Carbon Dioxide 34 H BUN 54 H Creatinine 1.42 H Estimated GFR 52 L BUN/Creatinine Ratio 38.0 H Glucose 114 H Lactate 1.0 Calcium 9.1 Total Bilirubin 2.1 H AST 24 ALT 14 Alkaline Phosphatase 74 Troponin I 0.024 NT-Pro-B Natriuret Pep 1440 H Total Protein 6.8 Albumin 3.7 Globulin 3.1 Albumin/Globulin Ratio 1.2 Assessment & Plan Assessment & Plan narrative: 1. Acute on chronic diastolic heart failure with pulmonary edema and truncal edema, present on admission and active. 2. Chronic kidney disease with creatinine of 1.42, present on admission relatively stable. 3. Chronic hypoxic respiratory failure on 4 L of oxygen, stable. 4. COPD, stable. 5. Dm 2, with periods of hypoglycemia recently due to poor appetite, active. 6. Obesity class 2 with a BMI of 39, active. Plan: -diuresis with Lasix 40 IV q.12 hours, if fails to elicit diuretic effect we will increase to 60. -oxygen at 4 L. -monitor renal function -physical therapy assessment -hold oral medications and monitor glucose given recent episodes of hypoglycemia with relative anorexia. Anticipate 2 midnights in the hospital, supports inpatient status. Full resuscitation, confirmed time of admission. Lives alone in [place], daughter in [place] and son in [place]. Time-Based Coding :: 35 min spent with patient and on the chart (including review of chart, obtaining history, exam, reviewing outside data, placing orders, documenting exam and treatment plan, and counseling patient) on 05/14. Quality MIPS - Admit I confirm the patient?s Advance Care Plan is present, Code status is documented, Surrogate decision maker is in patient?s record [If Yes, STOP here]: Yes MIPS - Meds 'Current medications' to include all prescriptions, iona-uga-wyooqod products, herbals, cannabis/cannabidiol products, and vitamin/mineral/dietary (nutritional) supplements. I have utilized all available resources to obtain, update, or review the patient?s current medications. [If Yes, STOP here]: No
--- NOTE | 2025-05-14 18:44 | PC.NURSE ---
Patient arrived from ED at 1600 this afternoon. He is A&OX4, VSS on 4 LNC however 02- dipping form 88-92%. RT notified and placed patient on [place] NC. He is able to ambulate to BR, however SOB with any activity. Patient denies dizziness, CP. BG 100 and he tolerates 100% of dinner. MD at bedside evaluating patient. He is placed on Tele NSR with PVC's. Continuous 02 monitoring, admission assessment completed.
[2025-05-14] MEDS: ACETAMINOPHEN 325 MG TABLET 650 MG PO (20:27)
[2025-05-15] VITALS (9 sets, daily range): BP systolic 114–138; BP diastolic 33–65; PULSE 62–90; RESP 18–24; TEMP 35.9–36.6; O2SAT 90–94
[2025-05-15] MEDS: FUROSEMIDE 40 MG/4 ML VIAL IV ×2 (00:05→10:59)
[2025-05-15] MEDS: TRAMADOL 50 MG TABLET PO ×2 (03:08→12:24)
[2025-05-15 06:22] LABS: Add Manual Diff / Slide Review NO; Hematocrit 43.2 % (41-53); Hemoglobin 13.8 g/dL (13.5-17.5); Lymphocytes Absolute Auto 800 /uL (1100-4500); Mean Corpuscular HGB Conc 31.9 % (30-36); Mean Corpuscular Hemoglobin 28.3 PG (26-34); Mean Corpuscular Volume 88.6 fL (80-100); Platelet Count 271 X10^3/uL (150-400)
[2025-05-15 06:30] LABS: Blood Urea Nitrogen 52 mg/dL (9-20); Calcium 9.1 mg/dL (8.4-10.2); Carbon Dioxide 39 mmol/L (22-32); Chloride 94 mmol/L (98-107); Estimated Glomerular Filt Rate 57 mL/min (>60); Glucose 121 mg/dL (70-99); HEMOLYSIS < 15 (0-50); Potassium 4.5 mmol/L (3.4-5.1); Sodium 138 mmol/L (137-145)
[2025-05-15 06:35] LABS: Hemoglobin A1C% w Est Avg Glu 6.8 % (4.0-6.0)
[2025-05-15] MEDS: HEPARIN 5,000 UNIT/ML VIAL 5000 UNIT SUBCUT ×2 (08:33→21:35)
--- NOTE | 2025-05-15 09:35 | PT.IIE ---
Current Diagnoses Acute on chronic diastolic (congestive) heart failure (05/14/25) Medical History (Last Reviewed 05/14/25 @ 16:26 by Nj Flowers MD) CHF (congestive heart failure) Diabetes Hypertension Physical Therapy Inpatient Evaluation/Re-Eval M1 PT/OT-IP Prior Functional Status Start: 05/15/25 09:27 Freq: NEEDED Status: Active Protocol: Document 05/15/25 09:14 MB (Rec: 05/15/25 09:34 MB Desktop) Medical Review Prior Functional Status Medical History Yes Reviewed Communication [place] and B hearing aides Mobility and Gait Mod I with quad cane or RW Activities of Daily I, lives alone, drives Living and IADL's Prior Functional 4.5L O2 at home Level (Other details ) Social History Household Members none Living Arrangements House Number of Floors ( One Floor Floors) Number of Stairs To 1 threshold step up to get into home Enter/Railing? Home Environment High Toilet,Tub/Shower Home Equipment Front Wheel Walker,Quad Cane,Hand Held Shower Employment Status Retired M2 PT-IP Current Condition Start: 05/15/25 09:27 Freq: NEEDED Status: Active Protocol: Document 05/15/25 09:14 MB (Rec: 05/15/25 09:34 MB Desktop) Physical Therapy Current Condition Current Condition Evaluation Date 05/15/25 Treatment Diagnosis CHF exacerbation M3 PT-IP Subjective Start: 05/15/25 09:27 Freq: NEEDED Status: Active Protocol: Document 05/15/25 09:14 MB (Rec: 05/15/25 09:34 MB Desktop) Therapy Pain Assessment Pain When Pain Assessed During Mobility Pain Present Pain Present Pain Reported Location B hips Scale Used Not rated and improves once he moves and is not lying on them M4 PT-IP Mobility and Gait Start: 05/15/25 09:27 Freq: NEEDED Status: Active Protocol: Document 05/15/25 09:14 MB (Rec: 05/15/25 09:34 MB Desktop) PT-Bed Mobility Assessment Rolling Type of Rolling Roll to Left Level of Assist Independent Supine to Sit Supine to Sit Independent,Head of Bed Elevated,Bedrails Scooting Scooting to Edge of Independent Bed PT-Transfer Assessment Sit to and From Stand Sit to and from Standby Assistance Stand Equipment Transfer Assistive None Device Transfers Transfer Destination Bed Transfer Technique Stepping to the left and reaching for the chair Transfer Ability Level of Assist Standby Assistance Comments Mobility Comments O2 sats 88% on 4.5L. Pt states he is on 4.5L O2 at home Gait Assessment Gait Gait Assistance Standby Assistance Required: Distance (Feet) 2 Assistive Devices Assistive Device None Gait Deviations General Gait Pattern Decreased Feet Clearance Factors Limiting Gait Function Factors Limiting Poor Balance Gait Function Comments Gait Comments Left side stepping and reaching for the chair PT-Balance Assessment Sitting Balance and Reactions Static Sitting Normal Balance Ability Dynamic Sitting Normal Balance Ability Standing Balance and Reactions Static Standing Good Balance Ability Dynamic Standing Good Balance Ability Device Used None M5 PT-IP Objective Assessments Start: 05/15/25 09:27 Freq: NEEDED Status: Active Protocol: Document 05/15/25 09:14 MB (Rec: 05/15/25 09:34 MB Desktop) Orientation Orientation/Cognition Level of Alertness Alert Orientation Name,Birthday Language Function No Deficits Noted Ability Safety Awareness Decreased Safety Awareness Memory Description No Deficits Noted Gross Range of Motion Upper Extremity ROM Impairments Defer to OT Lower Extremity ROM Assessment Within Functional Limits Strength Lower Extremity Strength Assessment Within Functional Limits Coordination Assessment Assessment Coordination NT Comments Sensation Assessment Comments Sensation Comments NT Muscle Tone Muscle Tone WNL Yes M6 PT-IP Treatment Start: 05/15/25 09:27 Freq: NEEDED Status: Active Protocol: Document 05/15/25 09:14 MB (Rec: 05/15/25 09:34 MB Desktop) Physical Therapy Treatment Education Education Provided Safety M7 PT-IP Assessment and Plan Start: 05/15/25 09:27 Freq: NEEDED Status: Active Protocol: Document 05/15/25 09:14 MB (Rec: 05/15/25 09:34 MB Desktop) PT Summary Assessment and Plan Goals Bed Mobility Goal Independent Transfer Goal Independent,Cane,Front Wheeled Walker Gait Goal Independent,Cane,Front Wheel Walker Gait Distance 75 Other Goals Pt to gait train with mod I with RW or QC Pt will ascend and descend 1 threshold-type step with LRAD and mod I to allow safe home entrance. Days to Meet Goals 5 Frequency of Treatment Frequency Of Once a Day Treatment Treatment Plan Physical Therapy Bed Mobility Training,Transfer Training,Gait Training, Treatment Plan Therapeutic Exercise,Balance Retraining,Discharge Planning,Hot or Cold Pack,Neuromuscular Re-ed, Coordination Retraining,Manual Therapy Recommendations To Nursing Amount of Assist Standby Assistance Needed Discharge Recommendations PT Discharge Home with Assistance,Home Health Recommendations Transportation Needs Private Vehicle at Discharge - PT assist x1
[2025-05-15] MEDS: AMLODIPINE 5 MG TABLET 10 MG PO ×2 (10:48→21:35)
[2025-05-15] MEDS: ATORVASTATIN 20 MG TABLET 40 MG PO (10:48)
[2025-05-15] MEDS: METOPROLOL ER 50 MG TABLET 100 MG PO (10:51)
[2025-05-15] MEDS: SPIRONOLACTONE 25 MG TABLET PO ×2 (10:52→21:36)
[2025-05-15] MEDS: METFORMIN HCL 500 MG TABLET 1000 MG PO ×2 (10:52→14:05)
[2025-05-15] MEDS: FLUTICASONE 120 SPRAY/16 GM SPRAY.SUSP 50 SPRAY NASAL (11:11)
[2025-05-15] MEDS: INSULIN LISPRO 100 UNIT/ML 3ML VIAL SUBCUT (12:26)
--- NOTE | 2025-05-15 13:54 | CM.DANOTE ---
Initial DCP Assessment Visit Note Reviewed EMR and team rounds for pt's status updates. Met with pt at bedside to introduce self and role. Pt was found to be alert/oriented, sitting in the recliner in no apparent distress. Pt resides modified independently in his own home in [place]. Family will provide transport home at d/c. Payor: Medicare PCP: Dr. Hurtado Pt is a 75 year-old M with a hx of type 2 diabetes, COPD, CHF, and home O2 dependent on 4.5L at baseline. He presented with c/o worsening SOB over the last 3-weeks. ED chest x-ray showed cardiomegaly, CHF exacerbation. Plan was made to admit for continuing eval and diuresis. PT eval today recommends d/c home with Home Health. Will continue to monitor to determine if pt will be interested in this at the time of d/c. Discharge Planning/Care Management CM Discharge Assessment Start: 05/14/25 15:02 Freq: Status: Active Protocol: Document 05/15/25 13:52 DPL (Rec: 05/15/25 13:54 DPL [id number]) Discharge Planning Assessment Assigned Discharge KAREN Sheppard Senior Caregiver Advance Directives? No: pt cant remember if he has one written up History Provided By Patient,Medical Record Has Patient been No admitted in last 30 days? Prior Living House Arrangements Household Members none Type of Drives own vehicle transporation used prior to admit Independent with ADL No: modified independent with a walker or cane, still 's drives Is patient alert and Yes oriented? Comment N/A Caregiver for No Another DME Already Rented / Elevated Toilet Seat,FWW / Walker,Cane Owned Patient/Family Home with Home Health Preference Barriers to No Discharge Discharge Plan Home Community Services Physical Therapy Referrals Initiated Home Health Additional Comment Monitor for HH need at time of d/c. If patient plan is No home with home health: Has signed face to face form been completed? Comment Pending Whiteboard Updated Yes in Patient Room with name and ext. # of [employer] Unit Operator Review Status In Process Please Provide Date 05/15/25 Initial DC Assessment Was Performed
[2025-05-15] MEDS: INSULIN GLARGINE 100 UNIT/ML 3ML PEN 80 UNIT SUBCUT (15:42)
--- NOTE | 2025-05-15 16:22 | P.PN_ITS ---
Subjective Subjective Date Patient Seen: 05/15/25 Interval history: Chief complaint: Recurrent dyspnea or shortness a breath with acute on chronic diastolic congestive heart failure with acute pulmonary edema History of present illness: 05/14: 75-year-old male with diabetes type 2, COPD on home oxygen with chronic respiratory failure as well as diastolic heart failure. He presents with 3 weeks of progressive fatigue, and dyspnea on exertion. His called the ambulance today because of his slow speaking on the telephone. He notes some intermittent pressure but denies any rectal bleeding or melena. He denies any nausea. He was noticing a little more swelling in his legs and some truncal edema. No scrotal edema. He was given IV Lasix in the ED and does feel little bit better. He was a known history of previous mild aortic stenosis and moderate mitral stenosis. He lives alone, in [place]. He usually uses 4.5 L of oxygen in his baseline. He denies any URI symptoms such as rhinorrhea, sore throat, or cough. No constipation, or diarrhea. No hematuria or dysuria. ED course: Exam consistent with volume overload, given IV Lasix. Hospital course: 05/15: Patient is still dyspneic on exertion normally takes 300 units of a basal insulin urine output greater than 2400 Review of systems: No chest pain palpitations No fever or chills No nausea vomiting diarrhea No urinary symptoms Physical exam: Very pleasant male morbidly obese HEENT unremarkable Can not assess for JVD Heart sounds distant Lung sounds distant No extremity lower extremities but venous stasis dermatitis the distal part of both lower legs Chest x-ray shows pulmonary congestion and cephalization of vessels and small pleural effusions Assessment and plan: Acute on chronic diastolic congestive heart failure appears to be very sensitive to fluid overload * Continue IV diuresis * Consider preload reduction with nitrates * Continue antihypertensives * 1500 mL fluid restriction and education Type 2 diabetes with high resistance takes 300 units of a very long-acting concentrated insulin * Administer comparable dose of Lantus but somewhat lower due to caloric restriction here * Preprandial lispro * Sliding scale lispro in addition DVT prophylaxis: * Subcutaneous heparin Code status: * Full code blue 35 minutes were involved in the management of the patient including direct [id number] evaluation history review of documentation laboratory values Exam Vital Signs (past 8 hours): - 05/15/25 08:32 05/15/25 10:30 05/15/25 10:51 Temperature 97.6 F Pulse Rate 62 73 Respiratory Rate 24 Blood Pressure 121/33 L 116/55 L Pulse Oximetry 91 94 Oxygen Delivery Method High Flow Nasal Cannula Oxygen Flow Rate 5 5 05/15/25 12:00 05/15/25 12:00 Temperature 96.6 F L Pulse Rate 72 90 Respiratory Rate 22 Blood Pressure 114/40 L 114/40 L Pulse Oximetry 90 L Oxygen Delivery Method Oxygen Flow Rate 5 Oxygen Delivery Method High Flow Nasal Cannula Oxygen Flow Rate 5 Objective Labs 05/15/25 06:00 05/15/25 06:00 Labs: Laboratory Results - last 24 hr 05/14/25 05/14/25 05/15/25 17:03 20:03 06:00 WBC 9.6 RBC 4.87 Hgb 13.8 Hct 43.2 MCV 88.6 MCH 28.3 MCHC 31.9 RDW 16.5 H Plt Count 271 Neut % (Auto) 80.1 H Lymph % (Auto) 8.7 L [place] % (Auto) 8.0 Eos % (Auto) 2.7 Baso % (Auto) 0.5 Neut # (Auto) 7700 H Lymph # (Auto) 800 L [place] # (Auto) 800 Eos # (Auto) 300 Baso # (Auto) 0 Sodium 138 Potassium 4.5 Chloride 94 L Carbon Dioxide 39 H BUN 52 H Creatinine 1.30 H Estimated GFR 57 L BUN/Creatinine Ratio 40.0 H Glucose 121 H POC Whole Bld Glucose 100 H 192 H Hemoglobin A1c 6.8 H Calcium 9.1 05/15/25 05/15/25 05/15/25 07:33 11:51 15:40 WBC RBC Hgb Hct MCV MCH MCHC RDW Plt Count Neut % (Auto) Lymph % (Auto) [place] % (Auto) Eos % (Auto) Baso % (Auto) Neut # (Auto) Lymph # (Auto) [place] # (Auto) Eos # (Auto) Baso # (Auto) Sodium Potassium Chloride Carbon Dioxide BUN Creatinine Estimated GFR BUN/Creatinine Ratio Glucose POC Whole Bld Glucose 128 H 343 H D 118 H D Hemoglobin A1c Calcium PFSH Medical History CHF (congestive heart failure) Hypertension Diabetes Social History household members: none Smoking Status: Never smoker alcohol intake: former Assessment & Plan Time-Based Coding :: [TOTAL MINUTES] spent with patient and on the chart (including review of chart, obtaining history, exam, reviewing outside data, placing orders, documenting exam and treatment plan, and counseling patient) on [DATE].
[2025-05-15] MEDS: LOSARTAN 50 MG TABLET PO (21:36)
[2025-05-16] VITALS (9 sets, daily range): BP systolic 114–147; BP diastolic 51–66; PULSE 59–72; RESP 17–20; TEMP 35.8–36.6; O2SAT 90–95
[2025-05-16] MEDS: FUROSEMIDE 40 MG/4 ML VIAL IV ×2 (00:27→11:53)
[2025-05-16 06:12] LABS: Add Manual Diff / Slide Review NO; Hematocrit 42.2 % (41-53); Hemoglobin 13.8 g/dL (13.5-17.5); Lymphocytes Absolute Auto 800 /uL (1100-4500); Mean Corpuscular HGB Conc 32.7 % (30-36); Mean Corpuscular Hemoglobin 28.7 PG (26-34); Mean Corpuscular Volume 87.8 fL (80-100); Platelet Count 288 X10^3/uL (150-400)
[2025-05-16 06:24] LABS: Blood Urea Nitrogen 64 mg/dL (9-20); Calcium 8.9 mg/dL (8.4-10.2); Chloride 92 mmol/L (98-107); Estimated Glomerular Filt Rate 51 mL/min (>60); Glucose 81 mg/dL (70-99); HEMOLYSIS < 15 (0-50); Potassium 4.6 mmol/L (3.4-5.1); Sodium 136 mmol/L (137-145)
[2025-05-16 06:30] LABS: Carbon Dioxide 37 mmol/L (22-32)
--- NOTE | 2025-05-16 07:24 | PC.NURSE ---
Patient requiring increased oxygen throughout the night. Increased to 10L via NC/ oxymask, satting at 90%. LS diminished. Denies feeling short of breath. Notified Dr. Jackson and he stated that he passed it on to the day doctor.
--- NOTE | 2025-05-16 08:11 | DI.RAD.S_ITS ---
PROCEDURE: XR CHEST 1V INDICATIONS: chf TECHNIQUE: One view of the chest was acquired. COMPARISON: [facility], CR, XR CHEST 1V, 05/14/2025, 14:16. [facility], CR, XR CHEST 2V, 05/01/2025, 12:34. FINDINGS: Surgical changes and devices: None. Lungs and pleura: Lower lung volume. Hazy opacity in the right upper lobe. Bilateral prominent interstitial markings. Suspect [place] B lines. No significant pleural effusions or pneumothorax. Mediastinum: Mediastinal contours appear unchanged. Asymmetric elevation of the right hemidiaphragm. Heart size is enlarged. Bones and chest wall: No suspicious bony lesions. Overlying soft tissues appear unremarkable. IMPRESSION: Findings most consistent with fluid overload/CHF. No significant pleural effusion seen. Dictated by: Macario Kohler M.D. on 05/16/2025 at 9:05 Approved by: Macario Kohler M.D. on 05/16/2025 at 9:07
[2025-05-16] MEDS: FLUTICASONE 120 SPRAY/16 GM SPRAY.SUSP 50 SPRAY NASAL (09:08)
[2025-05-16] MEDS: ASPIRIN EC 81 MG TABLET PO (09:09)
[2025-05-16] MEDS: SPIRONOLACTONE 25 MG TABLET PO ×2 (09:09→21:58)
[2025-05-16] MEDS: AMLODIPINE 5 MG TABLET 10 MG PO (09:09)
[2025-05-16] MEDS: METOPROLOL ER 50 MG TABLET 100 MG PO (09:09)
[2025-05-16] MEDS: ATORVASTATIN 20 MG TABLET 40 MG PO (09:10)
[2025-05-16] MEDS: HEPARIN 5,000 UNIT/ML VIAL 5000 UNIT SUBCUT ×2 (09:10→21:58)
--- NOTE | 2025-05-16 11:09 | CM.DPNOTE ---
DCP Continued: Reviewed EMR and team rounds for pt?s medical status. Per hospitalist, chest xray completed and showing that pt will still need continued diuresis (approximately 48 hours more). CM team monitoring for possible home health referral when discharge is imminent. Plan: Anticipating dc home with family/brother to transport on 05/18 or when medically cleared. CM Team will continue to follow for coordination of discharge plans. CAMILA OrellanaSW
[2025-05-16] MEDS: INSULIN LISPRO 100 UNIT/ML 3ML VIAL SUBCUT ×2 (11:53→17:00)
--- NOTE | 2025-05-16 12:50 | PM.PN.1 ---
Subjective Subjective Date Patient Seen: 05/16/25 Interval history: Chief complaint: Recurrent dyspnea or shortness a breath with acute on chronic diastolic congestive heart failure with acute pulmonary edema History of present illness: 05/14:75-year-old male with diabetes type 2, COPD on home oxygen with chronic respiratory failure as well as diastolic heart failure. He presents with 3 weeks of progressive fatigue, and dyspnea on exertion. His called the ambulance today because of his slow speaking on the telephone. He notes some intermittent pressure but denies any rectal bleeding or melena. He denies any nausea. He was noticing a little more swelling in his legs and some truncal edema. No scrotal edema. He was given IV Lasix in the ED and does feel little bit better. He was a known history of previous mild aortic stenosis and moderate mitral stenosis. He lives alone, in [place]. He usually uses 4.5 L of oxygen in his baseline. He denies any URI symptoms such as rhinorrhea, sore throat, or cough. No constipation, or diarrhea. No hematuria or dysuria. ED course: Exam consistent with volume overload, given IV Lasix. Hospital course: 05/15: Patient is still dyspneic on exertion normally takes 300 units of a basal insulin urine output greater than 2400 05/16: During the night patient had episode of desaturation and was briefly placed on daily L oxygen mask and then de-escalated back down to 5 L nasal cannula. Patient is still feeling dyspnea with any activity. Intake and output 1675/2300 with net -750 Chest x-ray still shows marked pulmonary edema cephalization of vessels without improvement from 48 hours an oxygen requirement is certainly not improved either. In order to better manage diastolic congestive heart failure we will start using nitrates to reduce the left ventricular end-diastolic pressure and increased stroke volume. The anticipate effect is to improve the cardiac output and reverse what is probably cardiorenal syndrome. This will require reduction or elimination of amlodipine and replacement with long-acting nitrates. We will start with nitroglycerin paste today and then switch to Isordil 15 mg tomorrow titrate up to 30 mg on Monday. We will also need to discontinue the losartan because of his effect at reducing GFR Review of systems: No chest pain palpitations No fever or chills No nausea vomiting diarrhea No urinary symptoms Physical exam: Very pleasant male morbidly obese HEENT unremarkable Can not assess for JVD Heart sounds distant Lung sounds distant No extremity lower extremities but venous stasis dermatitis the distal part of both lower legs Chest x-ray shows pulmonary congestion and cephalization of vessels and small pleural effusions Assessment and plan: Acute on chronic diastolic congestive heart failure appears to be very sensitive to fluid overload Escalate IV diuresis to 80 mg of Lasix q.12 Initiate preload reduction with nitrates and reduce amlodipine Discontinue losartan to improve GFR 1500 mL fluid restriction and education Type 2 diabetes with high resistance takes 300 units of a very long-acting concentrated insulin Administer comparable dose of Lantus but somewhat lower due to caloric restriction here Preprandial lispro Sliding scale lispro in addition DVT prophylaxis: Subcutaneous heparin Code status: Full code blue 35 minutes were involved in the management of the patient including direct [id number] evaluation history review of documentation laboratory values Exam Vital Signs (past 8 hours): - 05/16/25 06:00 05/16/25 07:00 05/16/25 08:01 Temperature 97.0 F L Pulse Rate 68 Respiratory Rate 17 Blood Pressure 147/65 H Pulse Oximetry 93 92 Oxygen Delivery Method Nasal Cannula High Flow Nasal Cannula Oximask Oxygen Flow Rate 10 5 05/16/25 08:25 05/16/25 09:09 05/16/25 11:56 Temperature 96.6 F L Pulse Rate 71 70 69 Respiratory Rate 20 Blood Pressure 138/66 138/66 Pulse Oximetry 93 Oxygen Delivery Method Oxygen Flow Rate 10 05/16/25 12:00 Temperature 96.5 F L Pulse Rate 68 Respiratory Rate 18 Blood Pressure 125/56 L Pulse Oximetry 95 Oxygen Delivery Method Oxygen Flow Rate 5 Oxygen Delivery Method High Flow Nasal Cannula,Oximask Oxygen Flow Rate 5 Objective Labs 05/16/25 05:44 05/16/25 05:44 Labs: Laboratory Results - last 24 hr 05/15/25 05/15/25 05/15/25 15:40 16:31 18:31 WBC RBC Hgb Hct MCV MCH MCHC RDW Plt Count Neut % (Auto) Lymph % (Auto) [place] % (Auto) Eos % (Auto) Baso % (Auto) Neut # (Auto) Lymph # (Auto) [place] # (Auto) Eos # (Auto) Baso # (Auto) Sodium Potassium Chloride Carbon Dioxide BUN Creatinine Estimated GFR BUN/Creatinine Ratio Glucose POC Whole Bld Glucose 118 H D 96 187 H Calcium 05/15/25 05/16/25 05/16/25 20:05 05:44 07:32 WBC 8.0 RBC 4.81 Hgb 13.8 Hct 42.2 MCV 87.8 MCH 28.7 MCHC 32.7 RDW 16.7 H Plt Count 288 Neut % (Auto) 77.4 H Lymph % (Auto) 10.0 L [place] % (Auto) 8.1 Eos % (Auto) 3.6 Baso % (Auto) 0.9 Neut # (Auto) 6200 Lymph # (Auto) 800 L [place] # (Auto) 600 Eos # (Auto) 300 Baso # (Auto) 100 Sodium 136 L Potassium 4.6 Chloride 92 L Carbon Dioxide 37 H BUN 64 H Creatinine 1.44 H Estimated GFR 51 L BUN/Creatinine Ratio 44.4 H Glucose 81 POC Whole Bld Glucose 150 H 70 Calcium 8.9 05/16/25 11:39 WBC RBC Hgb Hct MCV MCH MCHC RDW Plt Count Neut % (Auto) Lymph % (Auto) [place] % (Auto) Eos % (Auto) Baso % (Auto) Neut # (Auto) Lymph # (Auto) [place] # (Auto) Eos # (Auto) Baso # (Auto) Sodium Potassium Chloride Carbon Dioxide BUN Creatinine Estimated GFR BUN/Creatinine Ratio Glucose POC Whole Bld Glucose 136 H Calcium [facility] Medical History CHF (congestive heart failure) Hypertension Diabetes Social History household members: none Smoking Status: Never smoker alcohol intake: former Assessment & Plan Time-Based Coding :: [TOTAL MINUTES] spent with patient and on the chart (including review of chart, obtaining history, exam, reviewing outside data, placing orders, documenting exam and treatment plan, and counseling patient) on [DATE].
[2025-05-16] MEDS: FUROSEMIDE 80 MG in SODIUM CHLORIDE 0.9% 50 ML 116 MG IV ×2 (12:54→16:59)
--- NOTE | 2025-05-16 14:14 | DIET.CONS ---
Dietary Consultation Note Admission Date: 05/16/2025 11:05 Assessment: 75 y M admitted CHF. Dietitian consulted for high insulin needs. Per team rounds, pt has been dosing his glargine based on BG check 2-3 hours after dinner/before bed. Met with pt at bedside, who confirms the above. Reports decreased food intake 2-3 days prior to admission. Does not having hypoglycemia events outside the last few days r/t decreased PO intakes. FBG is usually 110-120. Night BG is in 200s, 230-250s. A1c 6.8%. Open to DM educ outpatient. Diet recall: B- croissant egg/sausage sandwich from [employer] D-fried chk wrap from [employer] water Ht: 180.34 cm Wt: 127.459 kg BMI: 39.2 Last BM: 05/16/25 (05/16/25 12:05) MNA: 14 Real Score: 21 Diet: 05/16/25 Lunch Carbohydrate Consistent Diet Diet Modifications: LOW SODIUM (2G) AND FLUID RESTRICTION (1500ML) Carbohydrate level: Large (4 CHO) Reflex DM orders: No Food Texture: Level 7 - Regular Liquid Consistency: Level 0 - Thin Nutrition Percent Meal Consumed 100% 05/16/25 12:54 Percent Meal Consumed 100% 05/16/25 08:00 Percent Meal Consumed 100% 05/15/25 18:00 Percent Meal Consumed 100% 05/15/25 12:31 Percent Meal Consumed 100% 05/15/25 08:30 Labs: RBC 4.81 X10^6/uL (4.5-5.9) 05/16/25 05:44 Hgb 13.8 g/dL (13.5-17.5) 05/16/25 05:44 Hct 42.2 % (41-53) 05/16/25 05:44 Creatinine 1.44 mg/dL (0.66-1.25) H 05/16/25 05:44 Hemoglobin A1c 6.8 % (4.0-6.0) H 05/15/25 06:00 Lactate 1.0 mmol/L (0.7-2.1) 05/14/25 13:34 NT-Pro-B Natriuret Pep 1440 pg/mL (<450) H 05/14/25 13:34 Nutrition Diagnosis: Food and nutrition related knowledge deficit r/t limited previous educ on dosing insulin aeb dosing insulin based on postprandial or before bed BG Decreased nutrient needs (sodium) r/t heart failure aeb CHF w/ edema Interventions: -Discussed that glargine is usually set dose that would be adjusted based on FBG/ BG patterns (i.e. hypoglycemia during night), a postprandial BG would be 2 hours after start of meal -Requesting referral from PCP for appt with [facility] -Provided educ on servings of CHO at meals, label reading nutrition facts at chain restaurants and aiming for between 45-60 g CHO, pairing macros, CHO vs non-CHO foods -Discussed checking for sodium amount and aiming for less than 2,000 mg per day EER: 2 g Na, 45-60 g CHO at meals, 15-30 g CHO at snacks Monitoring/Evaluations: BG Electronically Signed by: Marilin Traylor 05/16/25 14:14 Clinical Dietitian [address] [address]
--- NOTE | 2025-05-16 14:50 | PT.IPTN ---
Current Diagnoses Acute on chronic diastolic (congestive) heart failure (05/16/25) Physical Therapy Treatment Note M2 PT-IP Current Condition Start: 05/15/25 09:27 Freq: NEEDED Status: Active Protocol: Document 05/15/25 09:14 MB (Rec: 05/15/25 09:34 MB Desktop) Physical Therapy Current Condition Current Condition Evaluation Date 05/15/25 Treatment Diagnosis CHF exacerbation M3 PT-IP Subjective Start: 05/15/25 09:27 Freq: NEEDED Status: Active Protocol: Document 05/16/25 14:50 AB (Rec: 05/16/25 16:13 AB [id number]) Subjective Physical Therapy Visit Type Type Treatment Note Visit Start Time 14:50 Visit Stop Time 15:05 Number of PLUM[employer]ING [employer]INE[employer]RAFT[employer]ERSON Visits 0 Physical Therapy Visit Comments Patient Comments agreeable to do PT M4 PT-IP Mobility and Gait Start: 05/15/25 09:27 Freq: NEEDED Status: Active Protocol: Document 05/16/25 14:50 AB (Rec: 05/16/25 16:11 AB [id number]) PT-Bed Mobility Assessment Supine to Sit Supine to Sit Independent PT-Transfer Assessment Sit to and From Stand Sit to and from Standby Assistance,Use of Upper Extremities Stand Equipment Transfer Assistive None Device Orthotic/Prosthetic No Devices or Brace: Comments Mobility Comments pt in bed and agreeable to do PT. O2 sat 90% with 4.5L /min O2. supine to sit mod I. O2 sat maintained: 88- 90% with O2 on. sit to stand SBA and ambulated in room without AD SBA. presents with antalgic gait but without LOB. pt only ambulated ~ 10 ft and sat on EOB. pt refused further ambulation. pt agreed to do stairs. ambulated towards step stool without AD SBA and completed up/down step stool holding on to door frame for support SBA. completed x 2 sets. pt ambulated back to EOB SBA without AD. pt wants to sit on EOB for a few minutes and then go use the toilet. informed pt regarding increasing activity tolerance and willing to try ambulation using 4WW next tx session. Gait Assessment Gait Gait Assistance Standby Assistance Required: Distance (Feet) 15 Able to Maintain Yes Weight Bearing Status During Gait Assistive Devices Assistive Device None Orthotic/Prosthetic No Devices or Brace: Gait Deviations General Gait Pattern Antalgic,Decreased Stride Length,Decreased Feet Clearance,Wide Based Gait Factors Limiting Gait Function Factors Limiting Decreased Activity Tolerance,Poor Safety Awareness, Gait Function Respiratory Distress Stair Climbing Assessment Evaluation Level of Assist On Standby Assistance Stairs Devices Stair Climbing Left Railing,Right Railing Assistive Devices Technique/Endurance Stair Climbing Ascend and Descend Direction Stair Climbing Step to Step Technique Number of Steps 1 Climbed Stair Climbing Set # 2 Repetitions (reps) M5 PT-IP Objective Assessments Start: 05/15/25 09:27 Freq: NEEDED Status: Active Protocol: Document 05/15/25 09:14 MB (Rec: 05/15/25 09:34 MB Desktop) Orientation Orientation/Cognition Level of Alertness Alert Orientation Name,Birthday Language Function No Deficits Noted Ability Safety Awareness Decreased Safety Awareness Memory Description No Deficits Noted Gross Range of Motion Upper Extremity ROM Impairments Defer to OT Lower Extremity ROM Assessment Within Functional Limits Strength Lower Extremity Strength Assessment Within Functional Limits Coordination Assessment Assessment Coordination NT Comments Sensation Assessment Comments Sensation Comments NT Muscle Tone Muscle Tone WNL Yes M6 PT-IP Treatment Start: 05/15/25 09:27 Freq: NEEDED Status: Active Protocol: Document 05/16/25 14:50 AB (Rec: 05/16/25 16:11 AB [id number]) Physical Therapy Treatment Education Education Provided Safety M7 PT-IP Assessment and Plan Start: 05/15/25 09:27 Freq: NEEDED Status: Active Protocol: Document 05/16/25 14:50 AB (Rec: 05/16/25 16:11 AB [id number]) PT Summary Assessment and Plan Potential Rehabilitation Fair Potential Summary Impairments Gait,Activity Tolerance Progress Towards Slow Progress due to Activity Tolerance Goals Assessment Summary pt requiring SBA with mobility without AD but has decrease activity tolerance and only ambulated ~ 10 ft. O2 sat maintained at 88-90% with 4.5L/min O2. pt lives alone. pt will benefit from HHPT. Goals Bed Mobility Goal Independent Transfer Goal Independent,Cane,Four Wheeled Walker Gait Goal Independent,Cane,Four Wheel Walker Gait Distance 75 Other Goals Pt will ascend and descend 1 threshold-type step with LRAD and mod I to allow safe home entrance. Days to Meet Goals 5 Frequency of Treatment Frequency Of Once a Day Treatment Treatment Plan Physical Therapy Bed Mobility Training,Transfer Training,Gait Training, Treatment Plan Therapeutic Exercise,Balance Retraining,Discharge Planning,Hot or Cold Pack,Neuromuscular Re-ed, Coordination Retraining,Manual Therapy Other ambulation using 4WW Recommendations and Next Treatment Focus Precautions Other Precautions O2 sat Recommendations To Nursing Amount of Assist Standby Assistance Needed Discharge Recommendations PT Discharge Home with Assistance,Home Health Recommendations Transportation Needs Private Vehicle at Discharge - PT assist 1
[2025-05-16] MEDS: INSULIN GLARGINE 100 UNIT/ML 3ML PEN 70 UNIT SUBCUT (21:59)
[2025-05-17] VITALS (8 sets, daily range): BP systolic 100–154; BP diastolic 51–82; PULSE 69–86; RESP 16–19; TEMP 35.9–37; O2SAT 91–95
[2025-05-17] MEDS: FLUTICASONE 120 SPRAY/16 GM SPRAY.SUSP 50 SPRAY NASAL (09:50)
[2025-05-17] MEDS: HEPARIN 5,000 UNIT/ML VIAL 5000 UNIT SUBCUT ×2 (09:52→20:06)
[2025-05-17] MEDS: ISOSORBIDE MONONITRATE ER 30 MG TABLET PO ×2 (09:53→20:06)
[2025-05-17] MEDS: METOPROLOL ER 50 MG TABLET 100 MG PO (09:53)
[2025-05-17] MEDS: SPIRONOLACTONE 25 MG TABLET PO ×2 (09:54→20:06)
[2025-05-17] MEDS: ATORVASTATIN 20 MG TABLET 40 MG PO (09:54)
[2025-05-17] MEDS: ASPIRIN EC 81 MG TABLET PO (09:54)
[2025-05-17] MEDS: AMLODIPINE 5 MG TABLET PO (09:54)
--- NOTE | 2025-05-17 10:15 | PT.IPTN ---
Current Diagnoses Acute on chronic diastolic (congestive) heart failure (05/16/25) Physical Therapy Treatment Note M2 PT-IP Current Condition Start: 05/15/25 09:27 Freq: NEEDED Status: Active Protocol: Document 05/15/25 09:14 MB (Rec: 05/15/25 09:34 MB Desktop) Physical Therapy Current Condition Current Condition Evaluation Date 05/15/25 Treatment Diagnosis CHF exacerbation M3 PT-IP Subjective Start: 05/15/25 09:27 Freq: NEEDED Status: Active Protocol: Document 05/17/25 10:15 AB (Rec: 05/17/25 13:03 AB Desktop) Subjective Physical Therapy Visit Type Type Treatment Note Visit Start Time 10:15 Visit Stop Time 10:30 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 pt with supplemental O2 at 4.5-5L/min and O2 sat at 92%. pt agreed to ambulate with PT. switched O2 to portable tank and pt can have 4 or 6L/min. informed nurse and stated that pt ok to have just 4L. O2 sat at 4L/min 92 %. ' sit to stand SBA and ambulated in the hallway using 4WW SBA to CGA ~ 250 ft. O2 sat 90% shelter of walking. cued to PLB. pt ambulated back to his room and sat on chair. O2 sat: 87% but with good recovery to 90% after ~ 5 sec. positioned pt on the chair. call light and table placed within reach. switched pt back to room supplemental O2. informed nurse regarding O2 sat. Gait Assessment Gait Gait Assistance Standby Assistance,Contact Guard Assist Required: Distance (Feet) 250 Able to Maintain Yes Weight Bearing Status During Gait Assistive Devices Assistive Device 4 Wheeled Walker Orthotic/Prosthetic No Devices or Brace: Factors Limiting Gait Function Factors Limiting Decreased Activity Tolerance,Poor Balance,Respiratory Gait Function Distress M5 PT-IP Objective Assessments Start: 05/15/25 09:27 Freq: NEEDED Status: Active Protocol: Document 05/15/25 09:14 MB (Rec: 05/15/25 09:34 MB Desktop) Orientation Orientation/Cognition Level of Alertness Alert Orientation Name,Birthday Language Function No Deficits Noted Ability Safety Awareness Decreased Safety Awareness Memory Description No Deficits Noted Gross Range of Motion Upper Extremity ROM Impairments Defer to OT Lower Extremity ROM Assessment Within Functional Limits Strength Lower Extremity Strength Assessment Within Functional Limits Coordination Assessment Assessment Coordination NT Comments Sensation Assessment Comments Sensation Comments NT Muscle Tone Muscle Tone WNL Yes M6 PT-IP Treatment Start: 05/15/25 09:27 Freq: NEEDED Status: Active Protocol: Document 05/17/25 10:15 AB (Rec: 05/17/25 13:03 AB Desktop) Physical Therapy Treatment Education Education Provided Safety M7 PT-IP Assessment and Plan Start: 05/15/25 09:27 Freq: NEEDED Status: Active Protocol: Document 05/17/25 10:15 AB (Rec: 05/17/25 13:03 AB Desktop) PT Summary Assessment and Plan Potential Rehabilitation Good Potential Summary Impairments ROM,Strength,Balance,Coordination,Sensation,Bed Mobility,Transfers,Gait,Activity Tolerance Progress Towards Slow Progress due to Activity Tolerance Goals Assessment Summary pt progressing with mobility and able to ambulate today using 4WW ~ 250 ft SBA to CGA with O2 sat decreased to 85% after ambulation with 4L/min O2 but with good recovery back to 90% in just a few seconds. pt may go home when medically stable and will benefit from HHPT. Goals Bed Mobility Goal Independent Transfer Goal Independent,Cane,Four Wheeled Walker Gait Goal Independent,Cane,Four Wheel Walker Gait Distance 75 Other Goals Pt will ascend and descend 1 threshold-type step with LRAD and mod I to allow safe home entrance. Days to Meet Goals 5 Frequency of Treatment Frequency Of Once a Day Treatment Treatment Plan Physical Therapy Bed Mobility Training,Transfer Training,Gait Training, Treatment Plan Therapeutic Exercise,Balance Retraining,Discharge Planning,Hot or Cold Pack,Neuromuscular Re-ed, Coordination Retraining,Manual Therapy Precautions Other Precautions O2 sat Recommendations To Nursing Amount of Assist 1 Person Assist Needed Discharge Recommendations PT Discharge Home with Assistance,Home Health Recommendations Transportation Needs Private Vehicle at Discharge - PT assist 1
[2025-05-17] MEDS: FUROSEMIDE 80 MG in SODIUM CHLORIDE 0.9% 50 ML 116 MG IV ×2 (10:20→17:39)
[2025-05-17] MEDS: TRAMADOL 50 MG TABLET PO (11:50)
[2025-05-17 11:53] LABS: Add Manual Diff / Slide Review NO; Hematocrit 44.1 % (41-53); Hemoglobin 14.4 g/dL (13.5-17.5); Lymphocytes Absolute Auto 600 /uL (1100-4500); Mean Corpuscular HGB Conc 32.6 % (30-36); Mean Corpuscular Hemoglobin 28.7 PG (26-34); Mean Corpuscular Volume 88.0 fL (80-100); Platelet Count 278 X10^3/uL (150-400)
[2025-05-17 12:04] LABS: Blood Urea Nitrogen 67 mg/dL (9-20); Calcium 9.1 mg/dL (8.4-10.2); Chloride 90 mmol/L (98-107); Estimated Glomerular Filt Rate 51 mL/min (>60); Glucose 193 mg/dL (70-99); HEMOLYSIS < 15 (0-50); Potassium 5.0 mmol/L (3.4-5.1); Sodium 134 mmol/L (137-145)
[2025-05-17 12:09] LABS: Carbon Dioxide 36 mmol/L (22-32)
--- NOTE | 2025-05-17 15:17 | CM.DPC ---
DCP Cont: Per MD, pt remains on 5LO2 today and not yet stable for discharge. Per PT, recommending home with HH when stable. Plan: SW to follow with pt to confirm if pt agreeable to HH and preference for referral. KAREN Kowalski
--- NOTE | 2025-05-17 17:17 | PM.PN.1 ---
Subjective Subjective Interval history: 75-year-old male with diabetes mellitus type 2, COPD, chronic hypoxic respiratory failure and diastolic congestive heart failure who was admitted with acute on chronic hypoxic respiratory failure, acute on chronic hypoxic respiratory failure, and acute on chronic diastolic CHF. Patient reports he is gradually feeling better. He states he feels he has been diuresing well. He is less short of breath. Continues to require 5 L of oxygen. He states prior to 3 weeks ago he did not use oxygen continuously. He reports at baseline he uses it more as needed and has used it as needed over the last several years. He states he has not been weighing himself daily. He also does not monitor his sodium intake. Exam Vital Signs (past 8 hours): - 05/17/25 10:24 05/17/25 15:37 05/17/25 16:58 Temperature 98.6 F Pulse Rate 79 69 Respiratory Rate 18 Blood Pressure 140/74 100/51 L Pulse Oximetry 91 94 Oxygen Flow Rate 5 5 Oxygen Delivery Method Nasal Cannula Oxygen Flow Rate 5 Narrative Exam Narrative: GEN: Elderly male, very pleasant, Alert and oriented x 3, NAD HEENT:NC, Face symmetric CHEST: Respiratory excursions symmetric, diminished in the bases, otherwise CTAB CV: RRR, no M/R/G ABD: Soft, obese, NT/ND, BT present in all 4 quadrants, body habitus limits exam EXTR: warm, well perfused, no C/C/trace bilateral lower extremity pitting edema SKIN: warm and dry, no rash NEURO: Alert and oriented x 3, nonfocal Objective Labs 05/17/25 11:37 05/17/25 11:37 Labs: Laboratory Results - last 24 hr 05/16/25 05/17/25 05/17/25 20:33 03:58 07:27 WBC RBC Hgb Hct MCV MCH MCHC RDW Plt Count Neut % (Auto) Lymph % (Auto) [place] % (Auto) Eos % (Auto) Baso % (Auto) Neut # (Auto) Lymph # (Auto) [place] # (Auto) Eos # (Auto) Baso # (Auto) Sodium Potassium Chloride Carbon Dioxide BUN Creatinine Estimated GFR BUN/Creatinine Ratio Glucose POC Whole Bld Glucose 217 H 145 H 132 H Calcium 05/17/25 05/17/25 05/17/25 11:37 11:43 16:48 WBC 8.3 RBC 5.01 Hgb 14.4 Hct 44.1 MCV 88.0 MCH 28.7 MCHC 32.6 RDW 16.4 H Plt Count 278 Neut % (Auto) 81.0 H Lymph % (Auto) 7.3 L [place] % (Auto) 8.2 Eos % (Auto) 2.7 Baso % (Auto) 0.8 Neut # (Auto) 6700 Lymph # (Auto) 600 L [place] # (Auto) 700 Eos # (Auto) 200 Baso # (Auto) 100 Sodium 134 L Potassium 5.0 Chloride 90 L Carbon Dioxide 36 H BUN 67 H Creatinine 1.43 H Estimated GFR 51 L BUN/Creatinine Ratio 46.9 H Glucose 193 H D POC Whole Bld Glucose 186 H 162 H Calcium 9.1 PFSH Medical History CHF (congestive heart failure) Hypertension Diabetes Social History household members: none Smoking Status: Never smoker alcohol intake: former Assessment & Plan Assessment & Plan narrative: 1. Acute on chronic hypoxic respiratory failure O2 need is 5 liters/minute. At baseline, he states he does not use continuous oxygen. We will continue weaning as tolerated. 2. Acute on chronic diastolic congestive heart failure Continue diuresis as tolerated. He is currently receiving furosemide 80 mg IV q.12 hours. Net diuresis of 3600 thus far this. He continues to improve. Discussed daily weights and both fluid and sodium restriction with him today. He expresses understanding. Although his CO2 is elevated, and BUN is elevated, they are both stable compared with yesterday. Continue present diuresis. 3. IDDM 2 Continue Lantus 40 units subQ twice daily and sliding scale. Fingersticks have ranged from 132-186 in the last 24 hours. 4. COPD No evidence of exacerbation. Code status Full Prophylaxis On heparin Disposition Anticipate he will discharge home in the next 48 hours Time-Based Coding :: [TOTAL MINUTES] spent with patient and on the chart (including review of chart, obtaining history, exam, reviewing outside data, placing orders, documenting exam and treatment plan, and counseling patient) on [DATE].
--- NOTE | 2025-05-17 18:22 | PC.NURSE ---
Pt had relatively uneventful day. Some edema remains in the ankles HL intact/patent. Received IV lasix w/o incidence. Call light w/in reach, pt calls appropriately for needs. Continue w/plan of care.
[2025-05-17] MEDS: INSULIN GLARGINE 100 UNIT/ML 3ML PEN 40 UNIT SUBCUT (20:07)
[2025-05-17] MEDS: INSULIN LISPRO 100 UNIT/ML 3ML VIAL SUBCUT (20:09)
--- NOTE | 2025-05-17 20:17 | PC.NURSE ---
Patient states he has been removing nasal cannula when ambulating to bathroom to test out how much i drop in sats. This RN adviced against this and educated patient on the risks of low oxygen saturation. Patient agreed to leave NC on while ambulating.
[2025-05-18 03:30] VITALS: BP 123/64; PULSE 76; RESP 18; TEMP 36.6; O2SAT 95
[2025-05-18] MEDS: FUROSEMIDE 80 MG in SODIUM CHLORIDE 0.9% 50 ML 116 MG IV (06:19)
[2025-05-18 06:30] LABS: Add Manual Diff / Slide Review NO; Hematocrit 41.4 % (41-53); Hemoglobin 13.5 g/dL (13.5-17.5); Lymphocytes Absolute Auto 900 /uL (1100-4500); Mean Corpuscular HGB Conc 32.5 % (30-36); Mean Corpuscular Hemoglobin 28.6 PG (26-34); Mean Corpuscular Volume 88.0 fL (80-100); Platelet Count 251 X10^3/uL (150-400)
[2025-05-18 06:43] LABS: Blood Urea Nitrogen 70 mg/dL (9-20); Calcium 9.0 mg/dL (8.4-10.2); Chloride 90 mmol/L (98-107); Estimated Glomerular Filt Rate 52 mL/min (>60); Glucose 142 mg/dL (70-99); HEMOLYSIS < 15 (0-50); Potassium 4.8 mmol/L (3.4-5.1); Sodium 134 mmol/L (137-145)
[2025-05-18 07:30] LABS: Carbon Dioxide 38 mmol/L (22-32)
[2025-05-18 08:00] VITALS: BP 120/60; PULSE 76; RESP 18; TEMP 36; O2SAT 96
[2025-05-18] MEDS: TRAMADOL 50 MG TABLET PO ×2 (09:09→20:30)
[2025-05-18] MEDS: ATORVASTATIN 20 MG TABLET 40 MG PO (09:10)
[2025-05-18] MEDS: SPIRONOLACTONE 25 MG TABLET PO ×2 (09:10→20:31)
[2025-05-18] MEDS: ISOSORBIDE MONONITRATE ER 30 MG TABLET PO ×2 (09:10→20:31)
[2025-05-18] MEDS: AMLODIPINE 5 MG TABLET PO (09:11)
[2025-05-18] MEDS: HEPARIN 5,000 UNIT/ML VIAL 5000 UNIT SUBCUT ×2 (09:11→20:30)
[2025-05-18] MEDS: ASPIRIN EC 81 MG TABLET PO (09:11)
[2025-05-18] MEDS: METOPROLOL ER 50 MG TABLET 100 MG PO (09:11)
--- NOTE | 2025-05-18 11:50 | PC.NURSE ---
Patient is sitting up in the chair, his lung sounds are all clear. He is on 4l of o2 and sats were 95%, will turn down his oxygen to 3L and see how he does. Patient up independently to the bathroom. He is sitting up in the chair. BS 129, 171
[2025-05-18 12:00] VITALS: BP 135/67; PULSE 72; RESP 20; TEMP 36.8; O2SAT 93
--- NOTE | 2025-05-18 12:57 | PT-IP ANOTE ---
Pt discussed in rounds. Pt gait trained over 250' with therapy last date and is on O2 at home. Possible d/c today.
--- NOTE | 2025-05-18 17:18 | PM.PN.1 ---
Subjective Subjective Interval history: 75-year-old male with diabetes mellitus type 2, COPD, chronic hypoxic respiratory failure and diastolic congestive heart failure who was admitted with acute on chronic hypoxic respiratory failure, acute on chronic hypoxic respiratory failure, and acute on chronic diastolic CHF. Patient reports he is gradually feeling better. He states he did take a shower today and again took off his oxygen. He reports his sats were back in the 70s when he got out of the shower. He had to put the oxygen back on. He states at baseline, he uses oxygen at night which she bleeds into his CPAP. He uses 4 liters/minute. During the day, he may use his oxygen for 30 minutes twice a day when he feels chest tightness. He states prior to 3 weeks ago, he never used it continuously. He reports when his shortness of breath got progressively worse, he began checking his O2 saturations and noted his O2 sats were dropping into the 60s. At that point he began wearing the oxygen continuously at 4-1/2 L. While he feels he is getting better, he states he does not feel he is ready to go home as he continues to have significant chest tightness and shortness of breaths Exam Vital Signs (past 8 hours): - 05/18/25 12:00 Temperature 98.2 F Pulse Rate 72 Respiratory Rate 20 Blood Pressure 135/67 Pulse Oximetry 93 Oxygen Delivery Method Nasal Cannula Oxygen Flow Rate 5 Narrative Exam Narrative: GEN: Elderly male, very pleasant, Alert and oriented x 3, NAD HEENT:NC, Face symmetric CHEST: Respiratory excursions symmetric, diminished in the bases, otherwise CTAB CV: RRR, no M/R/G ABD: Soft, obese, NT/moderate distention, BT present in all 4 quadrants, body habitus limits exam EXTR: warm, well perfused, no C/C/trace bilateral lower extremity pitting edema, chronic venous stasis changes SKIN: warm and dry, no rash NEURO: Alert and oriented x 3, nonfocal Objective Labs 05/18/25 06:15 05/18/25 06:15 Labs: Laboratory Results - last 24 hr 05/17/25 05/18/25 05/18/25 20:07 03:12 06:15 WBC 7.6 RBC 4.71 Hgb 13.5 Hct 41.4 MCV 88.0 MCH 28.6 MCHC 32.5 RDW 16.3 H Plt Count 251 Neut % (Auto) 73.6 Lymph % (Auto) 11.5 L [place] % (Auto) 9.6 Eos % (Auto) 4.4 H Baso % (Auto) 0.9 Neut # (Auto) 5600 Lymph # (Auto) 900 L [place] # (Auto) 700 Eos # (Auto) 300 Baso # (Auto) 100 Sodium 134 L Potassium 4.8 Chloride 90 L Carbon Dioxide 38 H BUN 70 H Creatinine 1.42 H Estimated GFR 52 L BUN/Creatinine Ratio 49.3 H Glucose 142 H POC Whole Bld Glucose 254 H 114 H D Calcium 9.0 05/18/25 05/18/25 05/18/25 07:53 11:39 16:45 WBC RBC Hgb Hct MCV MCH MCHC RDW Plt Count Neut % (Auto) Lymph % (Auto) [place] % (Auto) Eos % (Auto) Baso % (Auto) Neut # (Auto) Lymph # (Auto) [place] # (Auto) Eos # (Auto) Baso # (Auto) Sodium Potassium Chloride Carbon Dioxide BUN Creatinine Estimated GFR BUN/Creatinine Ratio Glucose POC Whole Bld Glucose 129 H 171 H 196 H Calcium [facility] Medical History CHF (congestive heart failure) Hypertension Diabetes Social History household members: none Smoking Status: Never smoker alcohol intake: former Assessment & Plan Assessment & Plan narrative: 1. Acute on chronic hypoxic respiratory failure O2 need remains 5 liters/minute. At baseline, he states he does not use continuous oxygen. He typically will use it twice a day for 30 minutes when he has chest tightness. Otherwise he uses CPAP at night with 4 L of oxygen bleed in. We will continue weaning as tolerated. 2. Acute on chronic diastolic congestive heart failure Continue diuresis as tolerated. He is currently receiving furosemide 80 mg IV q.12 hours. Net diuresis of 4300 thus far this. He continues to improve. Discussed daily weights and both fluid and sodium restriction with him yesterday. Advise that when he is monitoring his weights he can have orders for adding furosemide when he has a weight gain of 3 lb in 24 hours or 5 lb in 1 week which will help him better manage his congestive heart failure on an outpatient basis such that he does not require hospitalization. He has become progressively more azotemic with a BUN up to 70 today. Creatinine is 1.42 today. Which is stable. Sodium is 134, this is also stable. Will reduce furosemide to once daily IV. Anticipate he will discontinue IV furosemide in the next 24 hours 3. IDDM 2 Continue Lantus 40 units subQ twice daily and sliding scale. Fingersticks have ranged from 114-196 in the last 24 hours. 4. COPD No evidence of exacerbation. Code status Full Prophylaxis On heparin Disposition Anticipate he will discharge home in the next 24 to 48 hours Time-Based Coding :: [TOTAL MINUTES] spent with patient and on the chart (including review of chart, obtaining history, exam, reviewing outside data, placing orders, documenting exam and treatment plan, and counseling patient) on [DATE].
[2025-05-18] MEDS: INSULIN LISPRO 100 UNIT/ML 3ML VIAL SUBCUT ×2 (17:33→20:37)
[2025-05-18 20:00] VITALS: BP 123/55; PULSE 71; RESP 18; TEMP 36; O2SAT 92
[2025-05-18] MEDS: INSULIN GLARGINE 100 UNIT/ML 3ML PEN 45 UNIT SUBCUT (20:35)
[2025-05-18 21:47] VITALS: O2SAT 92
[2025-05-18 22:10] VITALS: O2SAT 92
[2025-05-19] VITALS (8 sets, daily range): BP systolic 117–142; BP diastolic 46–69; PULSE 66–79; RESP 16–20; TEMP 35.9–36.8; O2SAT 92–98
[2025-05-19 06:57] LABS: Blood Urea Nitrogen 73 mg/dL (9-20); Calcium 9.0 mg/dL (8.4-10.2); Carbon Dioxide 36 mmol/L (22-32); Chloride 90 mmol/L (98-107); Estimated Glomerular Filt Rate 53 mL/min (>60); Glucose 170 mg/dL (70-99); HEMOLYSIS < 15 (0-50); Potassium 5.0 mmol/L (3.4-5.1); Sodium 132 mmol/L (137-145)
--- NOTE | 2025-05-19 07:51 | PC.NURSE ---
Patient is sitting up in his chair, BS are clear to auscultation in all quads. He is on 4L of 02, increased to 5L last evening with CPAP. Lower extremities are looking better, 1+ edema to shins and ankles. Eating breakfast.
[2025-05-19] MEDS: INSULIN LISPRO 100 UNIT/ML 3ML VIAL SUBCUT ×4 (08:23→20:57)
[2025-05-19] MEDS: FLUTICASONE 120 SPRAY/16 GM SPRAY.SUSP 50 SPRAY NASAL (08:25)
[2025-05-19] MEDS: ISOSORBIDE MONONITRATE ER 30 MG TABLET PO ×2 (08:26→20:51)
[2025-05-19] MEDS: SPIRONOLACTONE 25 MG TABLET PO ×2 (08:26→20:51)
[2025-05-19] MEDS: ATORVASTATIN 20 MG TABLET 40 MG PO (08:26)
[2025-05-19] MEDS: METOPROLOL ER 50 MG TABLET 100 MG PO (08:26)
[2025-05-19] MEDS: FUROSEMIDE 40 MG/4 ML VIAL IV (08:26)
[2025-05-19] MEDS: AMLODIPINE 5 MG TABLET PO (08:26)
[2025-05-19] MEDS: ASPIRIN EC 81 MG TABLET PO (08:26)
[2025-05-19] MEDS: HEPARIN 5,000 UNIT/ML VIAL 5000 UNIT SUBCUT ×2 (08:26→20:51)
[2025-05-19] MEDS: INSULIN GLARGINE 100 UNIT/ML 3ML PEN 45 UNIT SUBCUT (08:27)
[2025-05-19] MEDS: SODIUM CHLORIDE 0.9% FLUSH 10 ML IV ×2 (08:27→21:09)
--- NOTE | 2025-05-19 12:16 | CM.DPC ---
DCP HH Planning: Per MD, pt making prgress but still needs further diuresis and remains on 6LO2 and not yet stable for discharge. Per PT, recommending home with HH. SW met bedside with pt and explained role and discussed HH recommendation. Pt confirms he has no hx of HH and explained services and frequency and pt confirms he feels HH would be beneficial at d/c and no HH preference after reviewing HH Choice list so [facility] referral made based on [facility] and [facility] does not service [facility]. F2F and HH orders completed and also sent to [facility] to review. Will just need d/c summ at discharge. Pt states his family is talking about eventually moving him to live near his son in [facility] as pt's son is in [place] and Dtr in [place]. Pt unsure of the timeframe for this potential move but not within the next couple months. Pt preference remains to d/c home and states his friend can provide transport at d/c and pt will just call him when he knows what day discharge will be. America Clinton MSW
--- NOTE | 2025-05-19 15:02 | PT-IP ANOTE ---
PT checks in on pt several times today and he has been up in chair. PT checks back and he is sleeping soundly in bed. Con't PT efforts next date as appropriate. Pt has been up walking with PT previous PT dates up to 250 feet with AD and O2.
--- NOTE | 2025-05-19 17:01 | P.PN_ITS ---
Subjective Subjective Date Patient Seen: 05/19/25 Interval history: Chief complaint: Recurrent dyspnea or shortness a breath with acute on chronic diastolic congestive heart failure with acute pulmonary edema History of present illness: 05/14: 75-year-old male with diabetes type 2, COPD on home oxygen with chronic respiratory failure as well as diastolic heart failure. He presents with 3 weeks of progressive fatigue, and dyspnea on exertion. His called the ambulance today because of his slow speaking on the telephone. He notes some intermittent pressure but denies any rectal bleeding or melena. He denies any nausea. He was noticing a little more swelling in his legs and some truncal edema. No scrotal edema. He was given IV Lasix in the ED and does feel little bit better. He was a known history of previous mild aortic stenosis and moderate mitral stenosis. He lives alone, in [place]. He usually uses 4.5 L of oxygen in his baseline. He denies any URI symptoms such as rhinorrhea, sore throat, or cough. No constipation, or diarrhea. No hematuria or dysuria. ED course: Exam consistent with volume overload, given IV Lasix. Hospital course: 05/15: Patient is still dyspneic on exertion normally takes 300 units of a basal insulin urine output greater than 2400 05/16:During the night patient had episode of desaturation and was briefly placed on daily L oxygen mask and then de-escalated back down to 5 L nasal cannula. Patient is still feeling dyspnea with any activity. Intake and output 1675/2300 with net -750 Chest x-ray still shows marked pulmonary edema cephalization of vessels without improvement from 48 hours an oxygen requirement is certainly not improved either. In order to better manage diastolic congestive heart failure we will start using nitrates to reduce the left ventricular end-diastolic pressure and increased stroke volume. The anticipate effect is to improve the cardiac output and reverse what is probably cardiorenal syndrome. This will require reduction or elimination of amlodipine and replacement with long-acting nitrates. We will start with nitroglycerin paste today and then switch to Isordil 15 mg tomorrow titrate up to 30 mg on Monday. We will also need to discontinue the losartan because of his effect at reducing GFR 05/17: Patient reports he is gradually feeling better. He states he feels he has been diuresing well. He is less short of breath. Continues to require 5 L of oxygen. He states prior to 3 weeks ago he did not use oxygen continuously. He reports at baseline he uses it more as needed and has used it as needed over the last several years. He states he has not been weighing himself daily. He also does not monitor his sodium intake. 05/18: Patient reports he is gradually feeling better. He states he did take a shower today and again took off his oxygen. He reports his sats were back in the 70s when he got out of the shower. He had to put the oxygen back on. He states at baseline, he uses oxygen at night which she bleeds into his CPAP. He uses 4 liters/minute. During the day, he may use his oxygen for 30 minutes twice a day when he feels chest tightness. He states prior to 3 weeks ago, he never used it continuously. He reports when his shortness of breath got progressively worse, he began checking his O2 saturations and noted his O2 sats were dropping into the 60s. At that point he began wearing the oxygen continuously at 4-1/2 L. While he feels he is getting better, he states he does not feel he is ready to go home as he continues to have significant chest tightness and shortness of breaths 05/19: Continues to diurese less dyspnea on exertion pulse 71 blood pressure 130/67, BUN creatinine stable at 73 1.4 Review of systems: No chest pain palpitations No fever or chills No nausea vomiting diarrhea No urinary symptoms Physical exam: Very pleasant male morbidly obese HEENT unremarkable Can not assess for JVD Heart sounds distant Lung sounds distant No extremity lower extremities but venous stasis dermatitis the distal part of both lower legs Assessment and plan: Acute on chronic diastolic congestive heart failure appears to be very sensitive to fluid overload * Continue IV diuresis * Consider preload reduction with nitrates * Continue antihypertensives * 1500 mL fluid restriction and education Type 2 diabetes with high resistance takes 300 units of a very long-acting concentrated insulin * Administer comparable dose of Lantus but somewhat lower due to caloric restriction here * Preprandial lispro * Sliding scale lispro in addition DVT prophylaxis: * Subcutaneous heparin Code status: * Full code blue 35 minutes were involved in the management of the patient including direct [id number] evaluation history review of documentation laboratory values Exam Vital Signs (past 8 hours): - 05/19/25 12:00 Temperature 96.7 F L Pulse Rate 71 Respiratory Rate 20 Blood Pressure 130/67 Pulse Oximetry 97 Oxygen Delivery Method CPAP Oxygen Flow Rate 5 Objective Labs 05/18/25 06:15 05/19/25 06:39 Labs: Laboratory Results - last 24 hr 05/18/25 05/19/25 05/19/25 19:57 06:39 12:10 Sodium 132 L Potassium 5.0 Chloride 90 L Carbon Dioxide 36 H BUN 73 H Creatinine 1.39 H Estimated GFR 53 L BUN/Creatinine Ratio 52.5 H Glucose 170 H POC Whole Bld Glucose 243 H 204 H Calcium 9.0 PFSH Medical History CHF (congestive heart failure) Hypertension Diabetes Social History household members: none Smoking Status: Never smoker alcohol intake: former Assessment & Plan Time-Based Coding :: [TOTAL MINUTES] spent with patient and on the chart (including review of chart, obtaining history, exam, reviewing outside data, placing orders, documenting exam and treatment plan, and counseling patient) on [DATE].
[2025-05-19] MEDS: TRAMADOL 50 MG TABLET PO (17:52)
[2025-05-19] MEDS: INSULIN GLARGINE 100 UNIT/ML 3ML PEN 50 UNIT SUBCUT (20:56)
[2025-05-20] VITALS (8 sets, daily range): BP systolic 112–130; BP diastolic 53–64; PULSE 51–72; RESP 16–20; TEMP 35.8–36.2; O2SAT 93–97
[2025-05-20] MEDS: FLUTICASONE 120 SPRAY/16 GM SPRAY.SUSP 50 SPRAY NASAL (08:06)
[2025-05-20] MEDS: INSULIN LISPRO 100 UNIT/ML 3ML VIAL SUBCUT ×4 (08:07→21:21)
[2025-05-20] MEDS: ISOSORBIDE MONONITRATE ER 30 MG TABLET PO ×2 (08:07→21:18)
[2025-05-20] MEDS: ATORVASTATIN 20 MG TABLET 40 MG PO (08:07)
[2025-05-20] MEDS: ASPIRIN EC 81 MG TABLET PO (08:07)
[2025-05-20] MEDS: HEPARIN 5,000 UNIT/ML VIAL 5000 UNIT SUBCUT ×2 (08:07→21:18)
[2025-05-20] MEDS: TRAMADOL 50 MG TABLET PO (08:07)
[2025-05-20] MEDS: FUROSEMIDE 40 MG/4 ML VIAL IV (08:08)
[2025-05-20] MEDS: SODIUM CHLORIDE 0.9% FLUSH 10 ML IV ×2 (08:08→21:24)
[2025-05-20] MEDS: INSULIN GLARGINE 100 UNIT/ML 3ML PEN 50 UNIT SUBCUT ×2 (08:08→21:23)
[2025-05-20] MEDS: SPIRONOLACTONE 25 MG TABLET PO ×2 (09:21→21:18)
[2025-05-20] MEDS: METOPROLOL ER 50 MG TABLET PO (09:21)
[2025-05-20 09:29] LABS: Blood Urea Nitrogen 67 mg/dL (9-20); Calcium 9.3 mg/dL (8.4-10.2); Carbon Dioxide 37 mmol/L (22-32); Chloride 86 mmol/L (98-107); Estimated Glomerular Filt Rate 51 mL/min (>60); Glucose 172 mg/dL (70-99); HEMOLYSIS < 15 (0-50); Potassium 5.2 mmol/L (3.4-5.1); Sodium 133 mmol/L (137-145)
[2025-05-20] MEDS: ACETAMINOPHEN 325 MG TABLET 650 MG PO ×2 (12:02→21:18)
--- NOTE | 2025-05-20 14:24 | PT.IPTN ---
Current Diagnoses Acute on chronic diastolic (congestive) heart failure (05/16/25) Physical Therapy Treatment Note M2 PT-IP Current Condition Start: 05/15/25 09:27 Freq: NEEDED Status: Active Protocol: Document 05/20/25 14:05 SP (Rec: 05/20/25 15:54 SP [id number]) Physical Therapy Current Condition Current Condition Evaluation Date 05/15/25 Treatment Diagnosis CHF exacerbation M3 PT-IP Subjective Start: 05/15/25 09:27 Freq: NEEDED Status: Active Protocol: Document 05/20/25 14:05 SP (Rec: 05/20/25 15:54 SP [id number]) Subjective Physical Therapy Visit Type Type Treatment Note Visit Start Time 14:05 Visit Stop Time 14:24 Number of SAMPLE GRINDER Visits 0 Physical Therapy Visit Comments Patient Comments Pt agreeable to work with SAMPLE GRINDER. Patient Goals return home M4 PT-IP Mobility and Gait Start: 05/15/25 09:27 Freq: NEEDED Status: Active Protocol: Document 05/20/25 14:05 SP (Rec: 05/20/25 15:54 SP [id number]) PT-Bed Mobility Assessment Rolling Type of Rolling Bilateral Level of Assist Independent Supine to Sit Supine to Sit Independent Sit to Supine Sit to Supine Independent Scooting Scooting to Edge of Independent Bed Scooting Up and Down Independent in Bed PT-Transfer Assessment Sit to and From Stand Sit to and from Independent,Standby Assistance,Use of Upper Extremities Stand Equipment Transfer Assistive None,Front Wheeled Walker Device Orthotic/Prosthetic No Devices or Brace: Transfers Transfer Destination Bed Transfer Technique ambulated with 4WW Transfer Ability Level of Assist Standby Assistance,Use of Upper Extremities Comments Mobility Comments Pt inclined in bed when arrived. Pt was on 6 L at arrival SaO2 99%. Bed Mobility and STS with proper use of 4WW brake mgt SBA/Mod I. Pt completed gait around nursing station using 4WW good slow pacing, occ cues for slow breath for safety SaO1 saturation on 6L 99%, SAMPLE GRINDER managed portable O2 tank trailing. PT returned to room and returned to bed Mod I, SaO2 96% lowered to 4L per pt request as has at home. SAMPLE GRINDER notified RUBBER COMPOUNDER FORMULATOR lowered SaO2 to 96% on 4L for documentation with her verbal confirmation. Pt is ok to return home HHPT when medically cleared. Gait Assessment Gait Gait Assistance Independent,Standby Assistance Required: Distance (Feet) 250 Able to Maintain Yes Weight Bearing Status During Gait Assistive Devices Assistive Device 4 Wheeled Walker Orthotic/Prosthetic No Devices or Brace: Gait Deviations General Gait Pattern Wide Based Gait Comments Gait Comments Pt improved midline and Minimal BUE WB on 4WW, proper use, proximal to 4WW, occ cues for slow pacing and breath for safety O2 saturation 99% on 6L. Did not lower O2 due to not having portable oximeter during the walk. M5 PT-IP Objective Assessments Start: 05/15/25 09:27 Freq: NEEDED Status: Active Protocol: Document 05/15/25 09:14 MB (Rec: 05/15/25 09:34 MB Desktop) Orientation Orientation/Cognition Level of Alertness Alert Orientation Name,Birthday Language Function No Deficits Noted Ability Safety Awareness Decreased Safety Awareness Memory Description No Deficits Noted Gross Range of Motion Upper Extremity ROM Impairments Defer to OT Lower Extremity ROM Assessment Within Functional Limits Strength Lower Extremity Strength Assessment Within Functional Limits Coordination Assessment Assessment Coordination NT Comments Sensation Assessment Comments Sensation Comments NT Muscle Tone Muscle Tone WNL Yes M6 PT-IP Treatment Start: 05/15/25 09:27 Freq: NEEDED Status: Active Protocol: Document 05/20/25 14:05 SP (Rec: 05/20/25 15:54 SP [id number]) Physical Therapy Treatment Education Education Provided Safety M7 PT-IP Assessment and Plan Start: 05/15/25 09:27 Freq: NEEDED Status: Active Protocol: Document 05/20/25 14:05 SP (Rec: 05/20/25 15:54 SP [id number]) PT Summary Assessment and Plan Potential Rehabilitation Good Potential Summary Impairments ROM,Strength,Balance,Coordination,Sensation,Bed Mobility,Transfers,Gait,Activity Tolerance Progress Towards Progressing Toward Goals Goals Assessment Summary Pt improvedMod I bed mobility and transfers with 4WW. Gait around nursing station SBA 250 ft with 4WW, SAMPLE GRINDER managed O2 tank on 6L. Returned to room SaO2 99% on6L, lowered to 4L per pt request and 96%. Notified decreased in O2 needed back to baseline per pt at home. Pt is ok to return home when medically cleared, HHPT assist as needed. Goals Bed Mobility Goal Independent Transfer Goal Independent,Cane,Four Wheeled Walker Gait Goal Independent,Cane,Four Wheel Walker Gait Distance 75 Other Goals Pt will ascend and descend 1 threshold-type step with LRAD and mod I to allow safe home entrance. Days to Meet Goals 5 Frequency of Treatment Frequency Of Once a Day Treatment Treatment Plan Physical Therapy Bed Mobility Training,Transfer Training,Gait Training, Treatment Plan Therapeutic Exercise,Balance Retraining,Discharge Planning,Hot or Cold Pack,Neuromuscular Re-ed, Coordination Retraining,Manual Therapy Other Check gait on 4L 4WW vs progress to cane use, PLOF. Recommendations and Next Treatment Focus Precautions Other Precautions O2 sat Recommendations To Nursing Amount of Assist Standby Assistance Needed Discharge Recommendations PT Discharge Home with Assistance,Home Health Recommendations Transportation Needs Private Vehicle at Discharge - PT assist 1 (SBA)
--- NOTE | 2025-05-20 15:10 | P.PN_ITS ---
Subjective Subjective Date Patient Seen: 05/20/25 Interval history: Chief complaint: Recurrent dyspnea or shortness a breath with acute on chronic diastolic congestive heart failure with acute pulmonary edema History of present illness: 05/14: 75-year-old male with diabetes type 2, COPD on home oxygen with chronic respiratory failure as well as diastolic heart failure. He presents with 3 weeks of progressive fatigue, and dyspnea on exertion. His called the ambulance today because of his slow speaking on the telephone. He notes some intermittent pressure but denies any rectal bleeding or melena. He denies any nausea. He was noticing a little more swelling in his legs and some truncal edema. No scrotal edema. He was given IV Lasix in the ED and does feel little bit better. He was a known history of previous mild aortic stenosis and moderate mitral stenosis. He lives alone, in [place]. He usually uses 4.5 L of oxygen in his baseline. He denies any URI symptoms such as rhinorrhea, sore throat, or cough. No constipation, or diarrhea. No hematuria or dysuria. ED course: Exam consistent with volume overload, given IV Lasix. Hospital course: 05/15: Patient is still dyspneic on exertion normally takes 300 units of a basal insulin urine output greater than 2400 05/16:During the night patient had episode of desaturation and was briefly placed on daily L oxygen mask and then de-escalated back down to 5 L nasal cannula. Patient is still feeling dyspnea with any activity. Intake and output 1675/2300 with net -750 Chest x-ray still shows marked pulmonary edema cephalization of vessels without improvement from 48 hours an oxygen requirement is certainly not improved either. In order to better manage diastolic congestive heart failure we will start using nitrates to reduce the left ventricular end-diastolic pressure and increased stroke volume. The anticipate effect is to improve the cardiac output and reverse what is probably cardiorenal syndrome. This will require reduction or elimination of amlodipine and replacement with long-acting nitrates. We will start with nitroglycerin paste today and then switch to Isordil 15 mg tomorrow titrate up to 30 mg on Monday. We will also need to discontinue the losartan because of his effect at reducing GFR 05/17: Patient reports he is gradually feeling better. He states he feels he has been diuresing well. He is less short of breath. Continues to require 5 L of oxygen. He states prior to 3 weeks ago he did not use oxygen continuously. He reports at baseline he uses it more as needed and has used it as needed over the last several years. He states he has not been weighing himself daily. He also does not monitor his sodium intake. 05/18: Patient reports he is gradually feeling better. He states he did take a shower today and again took off his oxygen. He reports his sats were back in the 70s when he got out of the shower. He had to put the oxygen back on. He states at baseline, he uses oxygen at night which she bleeds into his CPAP. He uses 4 liters/minute. During the day, he may use his oxygen for 30 minutes twice a day when he feels chest tightness. He states prior to 3 weeks ago, he never used it continuously. He reports when his shortness of breath got progressively worse, he began checking his O2 saturations and noted his O2 sats were dropping into the 60s. At that point he began wearing the oxygen continuously at 4-1/2 L. While he feels he is getting better, he states he does not feel he is ready to go home as he continues to have significant chest tightness and shortness of breaths 05/19: Continues to diurese less dyspnea on exertion pulse 71 blood pressure 130/67, BUN creatinine stable at 73 1.4 05/20: Patient is having much better exercise tolerance systolic blood pressure about 105 today BUN creatinine 67 and 1.4 Review of systems: No chest pain palpitations No fever or chills No nausea vomiting diarrhea No urinary symptoms Physical exam: Very pleasant male morbidly obese HEENT unremarkable Can not assess for JVD Heart sounds distant Lung sounds distant No extremity lower extremities but venous stasis dermatitis the distal part of both lower legs Assessment and plan: Acute on chronic diastolic congestive heart failure appears to be very sensitive to fluid overload * Convert to p.o. diuresis * Consider preload reduction with nitrates * Continue antihypertensives * 1500 mL fluid restriction and education Type 2 diabetes with high resistance takes 300 units of a very long-acting concentrated insulin * Administer comparable dose of Lantus but somewhat lower due to caloric restriction here * Preprandial lispro * Sliding scale lispro in addition DVT prophylaxis: * Subcutaneous heparin Code status: * Full code blue Disposition: Anticipate discharge in a.m. tomorrow 35 minutes were involved in the management of the patient including direct [id number] evaluation history review of documentation laboratory values Exam Vital Signs (past 8 hours): - 05/20/25 07:52 05/20/25 08:00 05/20/25 09:21 Temperature 96.8 F L Pulse Rate 64 68 Respiratory Rate 16 Blood Pressure 112/53 L 112/53 L Pulse Oximetry 96 Oxygen Delivery Method Nasal Cannula Oxygen Flow Rate 5 Fraction of Inspired Oxygen 05/20/25 11:55 05/20/25 12:00 Temperature 97.2 F L Pulse Rate 51 L Respiratory Rate 18 Blood Pressure 122/64 Pulse Oximetry 97 95 Oxygen Delivery Method High Flow Nasal Cannula Humidification Oxygen Flow Rate 5 5 Fraction of Inspired Oxygen 40 Fraction of Inspired Oxygen 40 SaO2/FiO2 Ratio 242 Oxygen Delivery Method High Flow Nasal Cannula,Humidification Oxygen Flow Rate 5 Objective Labs 05/18/25 06:15 05/20/25 08:37 Labs: Laboratory Results - last 24 hr 05/19/25 05/19/25 05/20/25 17:02 20:05 07:23 Sodium Potassium Chloride Carbon Dioxide BUN Creatinine Estimated GFR BUN/Creatinine Ratio Glucose POC Whole Bld Glucose 198 H 233 H 150 H Calcium 05/20/25 05/20/25 08:37 11:53 Sodium 133 L Potassium 5.2 H Chloride 86 L Carbon Dioxide 37 H BUN 67 H Creatinine 1.44 H Estimated GFR 51 L BUN/Creatinine Ratio 46.5 H Glucose 172 H POC Whole Bld Glucose 159 H Calcium 9.3 PFSH Medical History CHF (congestive heart failure) Hypertension Diabetes Social History household members: none Smoking Status: Never smoker alcohol intake: former Assessment & Plan Time-Based Coding :: [TOTAL MINUTES] spent with patient and on the chart (including review of chart, obtaining history, exam, reviewing outside data, placing orders, documenting exam and treatment plan, and counseling patient) on [DATE].
[2025-05-20] MEDS: FUROSEMIDE 40 MG TABLET PO (16:52)
[2025-05-21] VITALS (9 sets, daily range): BP systolic 111–138; BP diastolic 47–64; PULSE 66–83; RESP 18–20; TEMP 35.9–36.8; O2SAT 91–98
[2025-05-21] MEDS: METOPROLOL ER 50 MG TABLET PO (08:22)
[2025-05-21] MEDS: INSULIN GLARGINE 100 UNIT/ML 3ML PEN 50 UNIT SUBCUT ×2 (08:22→22:03)
[2025-05-21] MEDS: INSULIN LISPRO 100 UNIT/ML 3ML VIAL SUBCUT ×5 (08:22→22:02)
[2025-05-21] MEDS: ASPIRIN EC 81 MG TABLET PO (08:22)
[2025-05-21] MEDS: ACETAMINOPHEN 325 MG TABLET 650 MG PO ×3 (08:22→22:06)
[2025-05-21] MEDS: ATORVASTATIN 20 MG TABLET 40 MG PO (08:24)
[2025-05-21] MEDS: FLUTICASONE 120 SPRAY/16 GM SPRAY.SUSP 50 SPRAY NASAL (08:24)
[2025-05-21] MEDS: SPIRONOLACTONE 25 MG TABLET PO (08:24)
[2025-05-21] MEDS: ISOSORBIDE MONONITRATE ER 30 MG TABLET PO (08:24)
[2025-05-21] MEDS: HEPARIN 5,000 UNIT/ML VIAL 5000 UNIT SUBCUT ×2 (08:25→22:04)
[2025-05-21] MEDS: SODIUM CHLORIDE 0.9% FLUSH 10 ML IV ×2 (08:25→22:06)
[2025-05-21] MEDS: FUROSEMIDE 40 MG TABLET PO ×2 (08:35→16:03)
[2025-05-21 08:48] LABS: Blood Urea Nitrogen 68 mg/dL (9-20); Calcium 9.2 mg/dL (8.4-10.2); Chloride 89 mmol/L (98-107); Estimated Glomerular Filt Rate 58 mL/min (>60); Glucose 157 mg/dL (70-99); Sodium 133 mmol/L (137-145)
[2025-05-21 08:49] LABS: Potassium 5.7 mmol/L (3.4-5.1)
[2025-05-21 08:54] LABS: Carbon Dioxide 37 mmol/L (22-32); HEMOLYSIS 94 (0-50)
[2025-05-21] MEDS: LACTULOSE 20 GM/30 ML SOLUTION PO (09:29)
--- NOTE | 2025-05-21 11:40 | PT.IPTN ---
Current Diagnoses Acute on chronic diastolic (congestive) heart failure (05/16/25) Physical Therapy Treatment Note M2 PT-IP Current Condition Start: 05/15/25 09:27 Freq: NEEDED Status: Active Protocol: Document 05/21/25 11:13 SP (Rec: 05/21/25 12:29 SP [id number]) Physical Therapy Current Condition Current Condition Evaluation Date 05/15/25 Treatment Diagnosis CHF exacerbation M3 PT-IP Subjective Start: 05/15/25 09:27 Freq: NEEDED Status: Active Protocol: Document 05/21/25 11:13 SP (Rec: 05/21/25 12:29 SP [id number]) Subjective Physical Therapy Visit Type Type Treatment Note Visit Start Time 11:13 Visit Stop Time 11:40 Number of MASS SPECTROSCOPIST Visits 2 Physical Therapy Visit Comments Patient Comments Pt up in chair, reported just used the bathroom and willing to work with MASS SPECTROSCOPIST. Patient Goals return home with supplimental O2 M4 PT-IP Mobility and Gait Start: 05/15/25 09:27 Freq: NEEDED Status: Active Protocol: Document 05/21/25 11:13 SP (Rec: 05/21/25 12:29 SP [id number]) PT-Transfer Assessment Sit to and From Stand Sit to and from Independent,Use of Upper Extremities Stand Equipment Transfer Assistive None,Tripod Cane/Hurry Cane,Small Based Quad Cane,4 Device Wheeled Walker Orthotic/Prosthetic No Devices or Brace: Transfers Transfer Destination Chair Transfer Technique ambulated with 4WW, QC, Hurry Cane Transfer Ability Level of Assist Independent,Use of Upper Extremities Comments Mobility Comments Pt returning to his room chair from bathroom when arrived, demonstrated self management of O2 tubing no AD use I, stable gait noted. Pt states and MASS SPECTROSCOPIST confirmed pt on 3L supplimental O2 nasal canula. Pt agreeable to working with MASS SPECTROSCOPIST. Pt requested trial no use O2 during hallway gait use of 4WW vs SBQC/Hurry cane due to very low endurance and strength at this time. Pt completed approx 40 ft with observation desaturation 81%, MASS SPECTROSCOPIST instructed stationary stance with 4WW increased 1L 84%> 2L 88%> 3L 91-92% SaO2. Pt states little labor breath but requested further gait around nursing station approx 250 ft Mod I, MASS SPECTROSCOPIST managed portable O2 tank trailing. Pt returned to room chair use of BUE support I. Pt seated rest 2 min. MASS SPECTROSCOPIST instructed pt 5x STS (not timed) as HEP for self strength BLEs, declined HO but agreeable to continue on his own. Pt progressed gait in room QC with cues for full 4 ft positioning and little more proximal to body, states positions outside [place] so doesn't trip on the feet. Suggested use of hurry cane and provided for trial, instruction 2pt gait in RUE with LLE better pacing 30 ft x2 laps with LRAD, good posture and stability but pt reports tiring and will continue to use 4WW for now for safety and support energy conservation. MASS SPECTROSCOPIST discussed use of inspirometer, notified nursing to provide to pt and suggested could be beneficial to attend cardiopulmonary rehab for support strength and to progress return to breath control with mobility PLOF using supplimental O2 as needed. Pt stated would be open to this opportunity if can find one in [place]. MASS SPECTROSCOPIST notified Nursing, Care Mgt, supervising PT Cindy and Model Dresser. Pt has met all Gait Assessment Gait Gait Assistance Independent,Standby Assistance Required: Distance (Feet) 250 Able to Maintain Yes Weight Bearing Status During Gait Assistive Devices Assistive Device Tripod Cane/Hurry Cane,Small Based Quad Cane,4 Wheeled Walker Orthotic/Prosthetic No Devices or Brace: Gait Deviations General Gait Pattern Wide Based Gait Factors Limiting Gait Function Factors Limiting Decreased Activity Tolerance,Decreased Strength, Gait Function Respiratory Distress Comments Gait Comments see mobility comments M5 PT-IP Objective Assessments Start: 05/15/25 09:27 Freq: NEEDED Status: Active Protocol: Document 05/15/25 09:14 MB (Rec: 05/15/25 09:34 MB Desktop) Orientation Orientation/Cognition Level of Alertness Alert Orientation Name,Birthday Language Function No Deficits Noted Ability Safety Awareness Decreased Safety Awareness Memory Description No Deficits Noted Gross Range of Motion Upper Extremity ROM Impairments Defer to OT Lower Extremity ROM Assessment Within Functional Limits Strength Lower Extremity Strength Assessment Within Functional Limits Coordination Assessment Assessment Coordination NT Comments Sensation Assessment Comments Sensation Comments NT Muscle Tone Muscle Tone WNL Yes M6 PT-IP Treatment Start: 05/15/25 09:27 Freq: NEEDED Status: Active Protocol: Document 05/21/25 11:13 SP (Rec: 05/21/25 12:29 SP [id number]) Physical Therapy Treatment Other Treatments Other Treatment 5x STS (not timed) added as HEP, suggested use of Performed inspirometer for support improving breath volume and slow pacing control (not provided as of yet), discussion with and deferred to nursing will provide pt . M7 PT-IP Assessment and Plan Start: 05/15/25 09:27 Freq: NEEDED Status: Active Protocol: Document 05/21/25 11:13 SP (Rec: 05/21/25 12:29 SP [id number]) PT Summary Assessment and Plan Potential Rehabilitation Good Potential Summary Impairments ROM,Strength,Balance,Coordination,Sensation,Bed Mobility,Transfers,Gait,Activity Tolerance Progress Towards Progressing Toward Goals Goals Assessment Summary Pt has met all PT goals, improved with all mobility Mod I hallway with 4WW longer distance, SBQC and Hurry cane short room distance gait. Gait in hallway with 4WW 250 ft on Room air 81% with noted little labored breath, provided 1L SaO2 84%, increased 2L SaO2 88%, increased 3L via Nasal canula 91-92%. MASS SPECTROSCOPIST suggested use of inspirometer and could benefit from cardiopulmonary rehab, pt stated would be willing if qualifies and can find facility in [place]. Pt is ok to return home when medically cleared, with supplimental O2, is back to 3L improved from 4L prior to admission but not back to use as needed in his past recommendation of HHPT and assist as needed. Goals Bed Mobility Goal Independent Transfer Goal Independent,Cane,Four Wheeled Walker Gait Goal Independent,Cane,Four Wheel Walker Gait Distance 75 Other Goals Pt will ascend and descend 1 threshold-type step with LRAD and mod I to allow safe home entrance. Days to Meet Goals 5 Frequency of Treatment Frequency Of Once a Day Treatment Treatment Plan Physical Therapy Bed Mobility Training,Transfer Training,Gait Training, Treatment Plan Therapeutic Exercise,Balance Retraining,Discharge Planning,Hot or Cold Pack,Neuromuscular Re-ed, Coordination Retraining,Manual Therapy Other Gait LRAD, balance activities, cardiopulmonary ther ex. Recommendations and Next Treatment Focus Precautions Other Precautions O2 sat Recommendations To Nursing Amount of Assist Independent Needed Discharge Recommendations Other Discharge Nursing providing inspirometer and recommendation of Recommendations cardiopulmonary rehab for support strength and return to PLOF with supplimental O2 as needed. Transportation Needs Private Vehicle at Discharge - PT assist Independent with 4WW
--- NOTE | 2025-05-21 13:23 | CM.DPC ---
DCP Cont. Reviewed EMR and team rounds for pt's medical status and updates. Pt will need 1-more day before being ready for d/c home. RADIO DIRECTOR sent a prescription to [facility] along with pt's prescription/insurance info to see if he can qualify for a home travel O2 concentrator. Monitoring for results.
[2025-05-21] MEDS: TRAMADOL 50 MG TABLET PO ×2 (16:03→22:06)
[2025-05-22 04:22] VITALS: BP 120/56; PULSE 66; RESP 20; TEMP 35.9; O2SAT 94
--- NOTE | 2025-05-22 07:54 | P.DS_ITS ---
History of Present Illness History of Present Illness Date Patient Seen: 05/22/25 Chief complaint: SOB Narrative: Chief complaint: Recurrent dyspnea or shortness a breath with acute on chronic diastolic congestive heart failure with acute pulmonary edema History of present illness: 05/14: 75-year-old male with diabetes type 2, COPD on home oxygen with chronic respiratory failure as well as diastolic heart failure. He presents with 3 weeks of progressive fatigue, and dyspnea on exertion. His called the ambulance today because of his slow speaking on the telephone. He notes some intermittent pressure but denies any rectal bleeding or melena. He denies any nausea. He was noticing a little more swelling in his legs and some truncal edema. No scrotal edema. He was given IV Lasix in the ED and does feel little bit better. He was a known history of previous mild aortic stenosis and moderate mitral stenosis. He lives alone, in [place]. He usually uses 4.5 L of oxygen in his baseline. He denies any URI symptoms such as rhinorrhea, sore throat, or cough. No constipation, or diarrhea. No hematuria or dysuria. ED course: Exam consistent with volume overload, given IV Lasix. Hospital course: 05/15: Patient is still dyspneic on exertion normally takes 300 units of a basal insulin urine output greater than 2400 05/16:During the night patient had episode of desaturation and was briefly placed on daily L oxygen mask and then de-escalated back down to 5 L nasal cannula. Patient is still feeling dyspnea with any activity. Intake and output 1675/2300 with net -750 Chest x-ray still shows marked pulmonary edema cephalization of vessels without improvement from 48 hours an oxygen requirement is certainly not improved either. In order to better manage diastolic congestive heart failure we will start using nitrates to reduce the left ventricular end-diastolic pressure and increased stroke volume. The anticipate effect is to improve the cardiac output and reverse what is probably cardiorenal syndrome. This will require reduction or elimination of amlodipine and replacement with long-acting nitrates. We will start with nitroglycerin paste today and then switch to Isordil 15 mg tomorrow titrate up to 30 mg on Monday. We will also need to discontinue the losartan because of his effect at reducing GFR 05/17: Patient reports he is gradually feeling better. He states he feels he has been diuresing well. He is less short of breath. Continues to require 5 L of oxygen. He states prior to 3 weeks ago he did not use oxygen continuously. He reports at baseline he uses it more as needed and has used it as needed over the last several years. He states he has not been weighing himself daily. He also does not monitor his sodium intake. 05/18: Patient reports he is gradually feeling better. He states he did take a shower today and again took off his oxygen. He reports his sats were back in the 70s when he got out of the shower. He had to put the oxygen back on. He states at baseline, he uses oxygen at night which she bleeds into his CPAP. He uses 4 liters/minute. During the day, he may use his oxygen for 30 minutes twice a day when he feels chest tightness. He states prior to 3 weeks ago, he never used it continuously. He reports when his shortness of breath got progressively worse, he began checking his O2 saturations and noted his O2 sats were dropping into the 60s. At that point he began wearing the oxygen continuously at 4-1/2 L. While he feels he is getting better, he states he does not feel he is ready to go home as he continues to have significant chest tightness and shortness of breaths 05/19: Continues to diurese less dyspnea on exertion pulse 71 blood pressure 130/67, BUN creatinine stable at 73 1.4 05/20: Patient is having much better exercise tolerance systolic blood pressure about 105 today BUN creatinine 67 and 1.4 05/21: Feeling much better today no dyspnea on exertion with any activity seems to be doing well on 3 L of nasal cannula oxygen Review of systems: No chest pain palpitations No fever or chills No nausea vomiting diarrhea No urinary symptoms Physical exam: Very pleasant male morbidly obese HEENT unremarkable Can not assess for JVD Heart sounds distant Lung sounds distant No extremity lower extremities but venous stasis dermatitis the distal part of both lower legs Assessment and plan: Acute on chronic diastolic congestive heart failure appears to be very sensitive to fluid overload * Convert to p.o. diuresis * Consider preload reduction with nitrates * Continue antihypertensives * 1500 mL fluid restriction and education Type 2 diabetes with high resistance takes 300 units of a very long-acting concentrated insulin * Administer comparable dose of Lantus but somewhat lower due to caloric restriction here * Preprandial lispro * Sliding scale lispro in addition DVT prophylaxis: * Subcutaneous heparin Code status: * Full code blue Disposition: Anticipate discharge in a.m. tomorrow 35 minutes were involved in the management of the patient including direct [id number] evaluation history review of documentation laboratory values Discharge Providers Provider Date of admission: 05/16/25 11:05 Discharge Date: 05/22/25 Primary care physician: Paramjit Hurtado MD Consults: 05/14/25 15:31 Consult to Physical Therapy Evaluate & Treat Comment: Physician Instructions: Evaluate and Treat 05/16/25 09:58 Consult to Dietitian, Adult Routine Comment: Reason For Exam: HIGH INSULIN REQUIREMENTS 05/19/25 12:15 Consult to Home Health Routine Comment: CHF exac, COPD, respiratory failure Reason For Exam: Set up RN/PT for plan of dc home Discharge provider: Josh Lucas MD Exam Vital Signs (past 8 hours): - 05/22/25 04:22 Temperature 96.6 F L Pulse Rate 66 Respiratory Rate 20 Blood Pressure 120/56 L Pulse Oximetry 94 Oxygen Flow Rate 2 Fraction of Inspired Oxygen 40 SaO2/FiO2 Ratio 237 Oxygen Delivery Method Nasal Cannula Oxygen Flow Rate 2 Objective Labs 05/18/25 06:15 05/22/25 08:10 Labs: Laboratory Results - last 24 hr 05/21/25 05/21/25 05/21/25 08:02 11:50 16:35 Sodium 133 L Potassium 5.7 H Chloride 89 L Carbon Dioxide 37 H BUN 68 H Creatinine 1.29 H Estimated GFR 58 L BUN/Creatinine Ratio 52.7 H Glucose 157 H POC Whole Bld Glucose 224 H 212 H Calcium 9.2 05/21/25 05/22/25 19:53 02:03 Sodium Potassium Chloride Carbon Dioxide BUN Creatinine Estimated GFR BUN/Creatinine Ratio Glucose POC Whole Bld Glucose 311 H 166 H D Calcium PFSH Medical History CHF (congestive heart failure) Hypertension Diabetes Social History household members: none Smoking Status: Never smoker alcohol intake: former Discharge Plan Discharge Plan Patient Disposition: Home Discharge orders & Medications Prescriptions: New metoprolol succinate 50 mg Tablet Extended Release 24 Hr 50 mg PO DAILY Qty: 180 0RF isosorbide mononitrate 30 mg Tablet Extended Release 24 Hr 30 mg PO BID Qty: 180 0RF hydrochlorothiazide 25 mg Tablet 25 mg PO DAILY Qty: 90 0RF alum-mag hydroxide-simeth [Mag-Al Plus] 200-200-20 mg/5 mL Suspension 30 ml PO Q6HR PRN (Reason: Dyspepsia) Qty: 400 0RF insulin lispro [Admelog U-100 Insulin lispro] 100 unit/mL Solution 0 unit SUBCUT ACHS Qty: 40 0RF insulin glargine [Lantus Solostar U-100 Insulin] 100 unit/mL (3 mL) Insulin Pen 50 unit SUBCUT BID Qty: 30 0RF miscellaneous medical supply Misc 1 ea miscellaneous .Continuous Qty: 1 0RF Rx Instructions: Portable oxygen concentrator continuous 24 hour 5 L/hr diagnosis: ICD-10 J96.11 Continued atorvastatin 40 mg tablet 40 mg PO DAILY furosemide 40 mg tablet 40 mg PO BID Rx Instructions: 0700 & 1200 fluticasone propionate 50 mcg/actuation spray,suspension 50 spray intranasal DAILY losartan 50 mg tablet 50 mg PO BEDTIME tramadol 50 mg tablet 50 mg PO 3XD PRN (Reason: Pain (Scale Score 7-10)) aspirin 81 mg Tablet 81 mg PO DAILY Discontinued amlodipine 10 mg tablet 10 mg PO BID metformin 500 mg tablet 1,000 mg PO TID hydrochlorothiazide 50 mg tablet 100 mg PO QAM metoprolol succinate 100 mg tablet extended release 24 hr 100 mg PO QAM spironolactone 25 mg tablet 25 mg PO BID Rx Instructions: 0700/1200 insulin glargine U-300 conc [Toujeo SoloStar U-300 Insulin] 300 unit/mL (1.5 mL) insulin pen See Rx Instructions .ROUTE .COMPLEX Patient Comments: last night 05/13 patient 120 units Rx Instructions: Pt doses according to his glucose. Follow up/Referrals: Paramjit Hurtado MD [Primary Care Provider, Family Practice] Visit Report/Discharge Packet Stand Alone Forms: Patient Portal/API, Stroke Signs & Symptoms Discharge Data Primary Care Provider: Paramjit Hurtado
[2025-05-22 08:00] VITALS: BP 123/53; PULSE 69; RESP 18; TEMP 35.6; O2SAT 95
[2025-05-22] MEDS: ASPIRIN EC 81 MG TABLET PO (08:39)
[2025-05-22] MEDS: HEPARIN 5,000 UNIT/ML VIAL 5000 UNIT SUBCUT (08:40)
[2025-05-22] MEDS: METOPROLOL ER 50 MG TABLET PO (08:40)
[2025-05-22] MEDS: ATORVASTATIN 20 MG TABLET 40 MG PO (08:40)
[2025-05-22] MEDS: FLUTICASONE 120 SPRAY/16 GM SPRAY.SUSP 50 SPRAY NASAL (08:41)
[2025-05-22] MEDS: SODIUM CHLORIDE 0.9% FLUSH 10 ML IV (08:41)
[2025-05-22] MEDS: INSULIN LISPRO 100 UNIT/ML 3ML VIAL SUBCUT ×4 (08:45→16:50)
[2025-05-22] MEDS: TRAMADOL 50 MG TABLET PO ×2 (08:45→16:49)
[2025-05-22] MEDS: INSULIN GLARGINE 100 UNIT/ML 3ML PEN 50 UNIT SUBCUT (08:46)
[2025-05-22] MEDS: FUROSEMIDE 40 MG TABLET PO ×2 (08:46→16:49)
[2025-05-22 08:48] LABS: Blood Urea Nitrogen 60 mg/dL (9-20); Calcium 9.4 mg/dL (8.4-10.2); Chloride 89 mmol/L (98-107); Estimated Glomerular Filt Rate 59 mL/min (>60); Glucose 144 mg/dL (70-99); HEMOLYSIS < 15 (0-50); Potassium 5.2 mmol/L (3.4-5.1); Sodium 134 mmol/L (137-145)
[2025-05-22 08:54] LABS: Carbon Dioxide 37 mmol/L (22-32)
[2025-05-22 12:00] VITALS: BP 126/53; PULSE 69; RESP 18; TEMP 36.3; O2SAT 96
[2025-05-22] MEDS: INSULIN LISPRO 100 UNIT/ML 3ML VIAL 6 UNIT SUBCUT ×2 (12:24→16:50)
--- NOTE | 2025-05-22 14:19 | CM.DPC ---
DCP Discharge Home Per MD, pt medically stable to d/c home today with ongoing home oxygen and HH with recommendation of cardiac rehab. Cardiac Rehab staff met bedside with pt and provided their brochure and working to get pt set up for Cardio Pulmonary Rehab. BRIANNA met bedside with pt and explained role again and pt agreeable with discharge but not overly urgent to leave and states he plans to stay for dinner and then have his brother pick him up. SW requested he call his brother now and tell him around [phone] pickup so he's prepared. SW provided the [facility] brochure and explained HH again and pt remains agreeable. SW provided pt with the script for oxygen concentrator and pt will call [facility], his home O2 provider, to determine how to get a concentrator after discharge. Pt states his Dtr and son have talked him into moving to [facility] to live near his son so he has closer supports but this will occur in about a month or two depending how long it takes to coordinate. Pt requested that SW secure email his discharge summary to his Dtr Donna at [email or web address] to review as she works in the [employer] [facility] [employer] [facility] there in [place] and is helping to coordinate some of his medical care. Secure emailed dc summary to [facility] as well, F2F and orders previously sent. Updated RN and POLICE COMMISSIONER. Plan: Patient to d/c home today via brother POV around 1730 to home with [facility] to follow and outpt f/u with Cardio Pulmonary Rehab and Alex. KAREN Kowalski
[2025-05-22 16:00] VITALS: BP 135/54; PULSE 74; RESP 16; TEMP 36.3; O2SAT 94
--- NOTE | 2025-05-22 18:49 | PC.NURSE ---
Patient is A&OX3. VSS, afebrile on RA. He is medically cleared for discharge home today. CM assists with information for gui Care and RT discussing with patient need for patient to contact them for compressor (portable 02). He states his brother in law will arrive after dinner to transport him home. Pharmacy at bedside this afternoon discussing medication changes with patient and new insulin. He verbalizes understanding of medications and following up with PCP. He is escorted via w/ch to private vehicle at 1830 with brother in law. He has all of his personal belongings including home 02 and CPAP machine.
== END 2025-05-22 18:30 | disposition home health service (06) | DRG 291 ==
LOC: ED 14:37 → AC 15:19
PROVIDERS: Family Medicine; Internal Medicine; Admitting Provider Hospitalist; Emergency Provider Emergency Medicine; PCP Family Medicine; Referring Provider Emergency Medicine; Visit Provider Hospitalist
DX: I13.0 Hypertensive heart and chronic kidney disease with heart failure and stage 1 through stage 4 chronic kidney disease, or unspecified chronic kidney disease (principal); I50.33 Acute on chronic diastolic (congestive) heart failure; J96.21 Acute and chronic respiratory failure with hypoxia; N18.9 Chronic kidney disease, unspecified; I34.81 Nonrheumatic mitral (valve) annulus calcification; I35.2 Nonrheumatic aortic (valve) stenosis with insufficiency; I77.810 Thoracic aortic ectasia; I70.0 Atherosclerosis of aorta; I77.89 Other specified disorders of arteries and arterioles; E66.01 Morbid (severe) obesity due to excess calories; J44.9 Chronic obstructive pulmonary disease, unspecified; E11.22 Type 2 diabetes mellitus with diabetic chronic kidney disease; E11.649 Type 2 diabetes mellitus with hypoglycemia without coma; E66.812 Obesity, class 2; Z99.81 Dependence on supplemental oxygen; Z79.4 Long term (current) use of insulin; Z68.39 Body mass index [BMI] 39.0-39.9, adult; Z79.84 Long term (current) use of oral hypoglycemic drugs
CPT/HCPCS: 36415; 71045; 80048; 80053; 82962; 83036; 83605; 83880; 84484; 85025; 85610; 93005; 94760; 94762; 96365; 97116; 97161; 97535; 99284; 99285; G0378; C8929; J1644; J1815; J1938; Q9957